=== PATIENT | female | born 1975 | race Caucasian/White ===

== ENCOUNTER → 2018-02-17 08:45 | Outpatient (CLI) | payer BC, SELFPAY ==
[2018-02-17 10:50] LABS: Alanine Aminotransferase 26 U/L (12-78); Albumin Level 3.8 gm/dL (3.4-5.0); Albumin/Globulin Ratio 1.2 (1.1-1.8); Alkaline Phosphatase 93 U/L (46-116); Anion Gap 9.8 mEq/L (5-15); Aspartate Amino Transferase 11 U/L (15-37); Bilirubin,Total 0.5 mg/dL (0.2-1.0); Blood Urea Nitrogen 10 mg/dL (7-18); Calcium 9.2 mg/dL (8.5-10.1); Carbon Dioxide 30 mmol/L (21.0-32.0); Chloride 107 mmol/L (98-107); Chol/HDL Ratio 3.9 (1-3.5); Cholesterol 235 mg/dL (140-200); Creatinine,Serum 0.58 mg/dL (0.55-1.02); Estimated Glomerular Filt Rate 114 ml/min (>60); GFR (African American) 138 ML/MIN (>60); Globulin 3.2 gm/dl (1.3-3.2); Glucose 97 mg/dL (74-106); HDL Cholesterol 61 mg/dL (29-89); LDL Cholesterol 157 mg/dL (0-130); Potassium 4.8 mmoL/L (3.5-5.1); Sodium 142 mmol/L (136-145); Thyroid Stimulating Hormone 1.39 uIU/ml (0.358-3.740); Triglycerides 84 mg/dL (30-200); VLDL Cholesterol 17 mg/dL (0-40)
== END ==
PROVIDERS: PCP Family Medicine; Visit Provider Physician Assistant
DX: Z13.29 Encounter for screening for other suspected endocrine disorder (principal); Z13.220 Encounter for screening for lipoid disorders
CPT/HCPCS: 36415; 80053; 80061; 84443

== ENCOUNTER → 2018-03-08 09:28 | Outpatient (CLI) | payer BC, SELFPAY ==
--- NOTE | 2018-03-08 09:29 | MM_ITS ---
MM Dig screening mamm BI w/CAD ORDERING PHYSICIAN : Gricelda Epps MD PATIENT AGE: 42 years GENDER: Female COMPARISON: Outside breast studies from from [facility] now available: This includes November 2014 bilateral mammogram January 2015 MR breast available for comparison [facility]. INDICATION: ITS.REASON: SCREENING 42-year-old with no new complaints. No hormones. Family history. Mother breast cancer age 69. Maternal cousin in her 50s. TECHNIQUE: Standard CC and MLO images were obtained. R2 CAD reviewed. . Additional axillary cc view both breast FINDINGS: Moderately dense breast pattern bilaterally. Heterogeneous Increased density throughout the breast decreases sensitivity of mammography.. If any palpable areas arise ultrasound be useful compliment to mammography in breast of this relative increased density. However no focal areas of significant concern are identified. RIGHT BREAST: No new findings. Follow up one year on right . No new areas of significant concern right breast . LEFT BREAST:.Visual inspection noted & CAD highlights a small less than 7 mm focal density at the deep left breast on MLO view. Strongly favor this is merely a summation shadow,, but given its current dense focalappearance on today's MLO view, & given positive family history, in patient with dense breast, with suggest a should return for spot views of this area. These should include MLO and 90 degrees spot view along, with a CC spot view at the deep central breast. IMPRESSION: ...... Outside studies from [facility] have now available in PACS for comparison Fairly Dense breast bilaterally do decrease sensitivity of mammography.. LEFT BREAST:*Small focal area of density deep left breast MLO view, strongly favor is merely a summation shadow-not of significant concern, but with recommend spot view left breast to further evaluate RIGHT BREAST.. No new findings. Follow-up in one year. BI-RADS Category: 0 Need Additional Imaging Evaluation RECOMMENDED FOLLOW-UP: IMM - IMMEDIATE FOLLOW-UP RECOMMENDED Spot MLO, 90 degree and cc views left breast, as in body of report (A letter has been sent to the patient regarding results of the study.)
== END ==
PROVIDERS: PCP Family Medicine; Visit Provider Family Medicine
DX: Z12.31 Encounter for screening mammogram for malignant neoplasm of breast (principal)
CPT/HCPCS: 77067

== ENCOUNTER → 2018-03-31 13:01 | Outpatient (CLI) | payer BC, SELFPAY ==
--- NOTE | 2018-03-31 13:11 | MM_ITS ---
MM Dig mamm DX unilat LT CAD Ordering Physician: Gricelda Epps MD Patient Age: 42 years Female COMPARISON: 03/08/2018 bilateral mammogram & November 2014 INDICATION: Further evaluation small area of density deep left breast noted on recent MLO view TECHNIQUE: . Spot CC, 90 degree, MLO views along with foraminal CC rolled views left breast FINDINGS: . Moderately dense breast tissue throughout. Slightly nodular character Mammography is of decreased sensitivity in regions of denser breast tissue. Additional views show no areas of concern. The previously small focal area of density no longer evident and seems to compress out on these views. Thus patient may resume annual scheduled. IMPRESSION: Additional views are helpful-& show no areas of significant concern.. Patient may resume annual scheduled with bilateral follow-up March 2015 Fairly Dense breast bilaterally BI-RADS Category: 2 Benign Finding(s) RECOMMENDED FOLLOW-UP: 1YR 1 YEAR FOLLOW-UP A letter has been sent to the patient regarding results of the study.)
== END ==
PROVIDERS: PCP Family Medicine; Visit Provider Family Medicine
DX: R92.8 Other abnormal and inconclusive findings on diagnostic imaging of breast (principal)
CPT/HCPCS: 77065

== ENCOUNTER → 2018-06-02 15:45 | Outpatient (CLI) | payer BC, SELFPAY ==
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
== END ==
PROVIDERS: PCP Family Medicine; Visit Provider Family Medicine
DX: S61.512A Laceration without foreign body of left wrist, initial encounter (principal)
CPT/HCPCS: 73221

== ENCOUNTER → 2019-04-20 13:38 | Outpatient (CLI) | payer BC, SELFPAY ==
--- NOTE | 2019-04-20 13:44 | MM_ITS ---
PROCEDURE: MM DIG SCREENING MAMM BI W/CAD CLINICAL INDICATION: SCREENING There is a history of breast cancer patient's mother and maternal cousin. COMPARISON: [facility] MM Dig screening mamm BI w/CAD from 03/08/2018 DXLT MM Dig mamm DX unilat LT CAD from 03/31/2018 TECHNIQUE: Standard CC and MLO images were obtained. R2 CAD reviewed. FINDINGS: There is a diffusely dense and heterogenic parenchymal pattern definitely lessening the sensitivity of mammography. The findings are bilateral symmetrical. There is no new or suspicious lesion in either breast and no suspicious microcalcifications. IMPRESSION: Prominent heterogenic breast density with no suspicious lesions seen BI-RAD Category: 1 Negative FOLLOW-UP: 1YR 1 Year Follow-up (A letter has been sent to the patient regarding results of the study.) Dictated by: Dr. Larry Aguilar MD 04/23/2019 16:[address] Larry Aguilar MD in [place] 04/23/2019 16:27
== END ==
PROVIDERS: PCP Family Medicine; Visit Provider Physician Assistant
DX: Z12.31 Encounter for screening mammogram for malignant neoplasm of breast (principal)
CPT/HCPCS: 77067

== ENCOUNTER → 2019-04-24 11:51 | Outpatient (CLI) | payer BC, SELFPAY | PROVIDERS: PCP Family Medicine; Visit Provider Physician Assistant | DX: R00.2 Palpitations (principal); R00.0 Tachycardia, unspecified; R94.31 Abnormal electrocardiogram [ECG] [EKG]; Z72.0 Tobacco use; Z82.49 Family history of ischemic heart disease and other diseases of the circulatory system | CPT/HCPCS: 93225; 93226 ==

== ENCOUNTER → 2019-05-04 07:53 | Outpatient (CLI) | payer BC, SELFPAY ==
--- NOTE | 2019-05-04 | CA_ITS ---
APPROVED REPORT Exam: Exercise Treadmill Technologist: josie ortega, Ht: 5 ft 5 in Wt: 186 lbs BSA: 1.92 m2 HR: 76 bpm BP: 117/60 mmHg Indications: Tachycardia, Palpatations Medical History Medications: Lipitor,,,,, Allergies: No known drug allergies Cardiac Risk Factors: Hyperlipidemia Stress Test Details Test: Manual Treadmill HR Resting HR: 90 bpm Max Heart Rate (APMHR): 177 bpm Max HR Achieved: 163 bpm Target HR (85% APMHR): 150 bpm % of APMHR: 92 Recovery HR: 113 bpm BP Resting BP: 117/60 mmHg Max BP: 176/70 mmHg Recovery BP: 126.0/47.0 mmHg ECG Resting ECG: NSR, Low voltage QRS Clinical Exercise duration: 09:00 min Highest Stage Achieved: Stage 3: 3.4 mph at 14% grade. Exercise capacity: 10.1 METs Stress ECG Conclusion Patient exercised for 9min on Gilson Protocol. No symptoms noted. Occ PVC and Ventricular Couplet in stage 3. Normal ST Response. Normal GXT. Echo images reported seperately. Test Summary REST . . . . . . . Sitting REST . . . . . . . Standing REST 04:13 0.0 0.0 90 . 117/ 60 . . Stage 1 01:00 10.0 1.7 97 . . . . Stage 1 02:00 10.0 1.7 108 . . . . Stage 1 03:00 10.0 1.7 115 . 160/ 70 . . Stage 2 01:00 12.0 2.5 119 . . . . Stage 2 02:00 12.0 2.5 125 . . . . Stage 2 03:00 12.0 2.5 129 . 176/ 70 . . Stage 3 01:00 14.0 3.4 146 . . . . Stage 3 02:00 14.0 3.4 154 . . . . Stage 3 03:00 14.0 3.4 160 . . . Stop exercise at 09:00 RECOVERY . . . . . . . Protocol changed to Manual Treadmill RECOVERY 01:00 0.0 0.0 113 . . . . RECOVERY 02:00 0.0 0.0 102 . . . . RECOVERY 03:00 0.0 0.0 98 . . . . RECOVERY 04:00 0.0 0.0 99 . 126/ 47 . . RECOVERY 05:00 0.0 0.0 98 . 126/ 47 . . RECOVERY 06:00 0.0 0.0 96 . 113/ 46 . . RECOVERY 06:30 0.0 0.0 103 . 113/ 46 . . Electronically signed by : Buster Nieves, 05/04/2019 16:15:05
--- NOTE | 2019-05-04 07:57 | CA_ITS ---
APPROVED REPORT EXAM: Comprehensive 2D, Doppler, and color-flow Echocardiogram Center Medical And Lab Director: Evelia Camacho, RT(R) Ht: 5 ft 6 in Wt: 187lbs BSA: 1.94 BP: 114/67 mmHg Indications: Tachycardia, palpitations, smoker Conclusion 1. The EKG portion of the exercise stress echo is negative for ischemia, patient has good exercise capacity achieved 10.1 mets of workload on treadmill, the blood pressure response to exercise was adequate, there was no exercise-induced chest discomfort. 2. Resting echocardiogram showed normal left ventricular size and function with no regional wall motion abnormality, with exercise there is no segmental wall motion abnormality to suggest underlying ischemic heart disease. 3. Normal exercise stress echo.
== END ==
PROVIDERS: PCP Family Medicine; Visit Provider Internal Medicine Cardiovascular Disease
DX: R00.0 Tachycardia, unspecified (principal); R00.2 Palpitations
CPT/HCPCS: 93017; 93350

== ENCOUNTER → 2019-05-09 14:43 | Outpatient (CLI) | payer BC, SELFPAY ==
--- NOTE | 2019-05-09 14:47 | US_ITS ---
PROCEDURE: US EXTREMITY RT LIMITED CLINICAL INDICATION: RT AXILLARY MASS COMPARISON: No exams were available for comparison FINDINGS: Images targeted to the palpable abnormalities demonstrate a solid hypoechoic nodule with increased internal color Doppler blood flow 1.3 x 0.94 centimeters, and nodule most consistent with lymph node with peripheral hypo echoic rim and internal echogenicity 1.3 x 0.56 centimeters, and hypoechoic nodule in the right axilla 1.2 x 1.3 x 0.87 centimeters No cyst or fluid collection is demonstrated. IMPRESSION: Nodules as described favored to be nonspecific lymph nodes. Dictated by: Tomasz Ram 05/09/2019 16:13 Electronically signed by Tomasz Ram in [place] 05/09/2019 16:13
== END ==
PROVIDERS: PCP Family Medicine; Visit Provider Physician Assistant
DX: R22.31 Localized swelling, mass and lump, right upper limb (principal)
CPT/HCPCS: 76882

== ENCOUNTER → 2019-07-12 10:11 | Outpatient (CLI) | payer BC, OTHER, SELFPAY ==
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
== END ==
PROVIDERS: PCP Family Medicine; Visit Provider Physician Assistant
DX: M25.512 Pain in left shoulder (principal)
CPT/HCPCS: 73221

== ENCOUNTER 2019-08-09 10:00 | Outpatient (RCR) | payer BC, OTHER, SELFPAY ==
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
== END 2019-08-09 10:05 | disposition home or self-care (01) ==
LOC: PT 10:00
PROVIDERS: Visit Provider Physician Assistant
DX: M54.2 Cervicalgia (principal)
CPT/HCPCS: 97010; 97014; 97035; 97110; 97163; G0283

== ENCOUNTER → 2020-01-09 10:42 | Outpatient (CLI) | payer BC, SELFPAY ==
--- NOTE | 2020-01-09 10:48 | US_ITS ---
PROCEDURE: US TRANSVAGINAL CLINICAL INDICATION: VAGINAL BLEEDING COMPARISON: No exams were available for comparison FINDINGS: UTERUS: 6cm x 4cmx 3cm with a combined endometrial thickness of 7.6mm LEFT OVARY: 5mcw6bel7.8cm with a volume of 4.7ml. RIGHT OVARY: 8qwt1pxm7th with a volume of 10.6ml. No cul-de-sac fluid or adnexal mass. IMPRESSION: The endometrium measures 8 mm. If the patient is considered to be postmenopausal, then this is mildly thickened. If the patient is premenopausal then, this would be within normal limits. Dictated b Braulio Vargas MD 01/09/2020 12:34 Braulio Vargas MD in [place] 01/09/2020 12:34
== END ==
PROVIDERS: PCP Family Medicine; Visit Provider Physician Assistant
DX: N93.9 Abnormal uterine and vaginal bleeding, unspecified (principal)
CPT/HCPCS: 76830

== ENCOUNTER → 2020-01-10 13:46 | Outpatient (POV) | payer BC, SELFPAY ==
--- NOTE | 2020-01-10 16:38 | XR_ITS ---
PROCEDURE: XR CHEST 2V CLINICAL HISTORY: IRIDOCYCLITIS, RECURRENT Smoker COMPARISON: No exams were available for comparison FINDINGS: The cardiomediastinal silhouette and pulmonary vascularity are within normal limits. A 6 mm ill-defined nodular opacity is present in the left lung base. The remaining lungs are clear. No acute bony abnormalities. IMPRESSION: 6 mm left lower lobe nodule. Consider CT for further evaluation. Dictated b Braulio Vargas MD 01/10/2020 16:53 Braulio Vargas MD in [place] 01/10/2020 16:53
[2020-01-10 18:20] LABS: Erythrocyte Sedimentation Rate 6 mm/hr (0-20)
[2020-01-12 14:15] LABS: Rapid Plasma Reagin Ab Titer Non Reactive (NonRea<1:1)
[2020-01-12 16:16] LABS: Treponema pallidum Ab (FTA-ABS Non Reactive (Non Reactive)
[2020-01-13 08:13] LABS: QuantiFERON-TB Gold Plus Negative (Negative)
[2020-01-17 22:52] LABS: HLA-B27 Negative (.)
== END ==
PROVIDERS: PCP Family Medicine; Referring Provider Family Medicine
DX: H20.029 Recurrent acute iridocyclitis, unspecified eye (principal); R76.0 Raised antibody titer
CPT/HCPCS: 36415; 71046; 85651; 86480; 86592; 86618; 86780; 86812

== ENCOUNTER → 2020-01-11 10:18 | Outpatient (CLI) | payer BC, SELFPAY ==
[2020-01-11 11:29] LABS: Thyroid Stimulating Hormone 0.85 uIU/mL (0.465-4.68)
[2020-01-12 11:21] LABS: FSH 28.5 mIU/mL (.); LH 36.1 mIU/mL (.)
== END ==
PROVIDERS: Visit Provider Obstetrics & Gynecology
DX: R09.89 Other specified symptoms and signs involving the circulatory and respiratory systems (principal)
CPT/HCPCS: 36415; 83001; 83002; 84443

== ENCOUNTER → 2020-01-30 13:13 | Outpatient (CLI) | payer BC, MEDICAID, SELFPAY ==
--- NOTE | 2020-01-30 13:16 | CT_ITS ---
PROCEDURE: CT CHEST W CON CLINCAL INDICATION: IRIDOCYCLITIS, NODULES ON CXR COMPARISON: CR XR CHEST 2V from 01/10/2020 TECHNIQUE: IV Contrast: 75ml Optiray 350 Axial images obtained with sagittal and coronal reformats. All CT scans at the facility use one or more dose reduction, viz: automated exposure control, ma/kV adjustment per patient size (including targeted exams where dose is matched to indication, i.e. head), or iterative reconstruction technique. FINDINGS: HEART AND MEDIASTINAL STRUCTURES: No mediastinal or hilar mass. No evidence of aortic aneurysm or dissection. No evidence of central pulmonary embolus. LUNGS AND PLEURAL SPACES: There is mild biapical pleural thickening. There is a calcified nodule in the left lower lobe laterally in the costophrenic sulcus corresponding to the radiographic abnormality. There is some associated subpleural thickening at this region. BONY STRUCTURES: No acute bony abnormalities apparent. UPPER ABDOMEN: Unremarkable. ADDITIONAL FINDINGS: There are mildly prominent bilateral axillary lymph nodes IMPRESSION: 1. Left lower lobe pulmonary nodule corresponds to a calcified granuloma. There is some mild subpleural thickening also noted at this area. 2. Nonspecific mildly prominent bilateral axillary lymph nodes Dictated by: Braulio Vargas MD 01/31/2020 12:03 Braulio Vargas MD in [place] 01/31/2020 12:03
== END ==
PROVIDERS: PCP Family Medicine; Visit Provider Family Medicine
DX: H20.9 Unspecified iridocyclitis (principal)
CPT/HCPCS: 71260; Q9967

== ENCOUNTER → 2020-02-21 13:39 | Outpatient (POV) | payer BC, SELFPAY | DX: Z00.00 Encounter for general adult medical examination without abnormal findings (principal) ==

== ENCOUNTER 2020-04-08 12:29 | Emergency (ER) | payer BC, MEDICAID, SELFPAY ==
[2020-04-08 13:00] VITALS: BP 122/72; PULSE 67; RESP 16; TEMP 36.8; O2SAT 98; BMI 30.7
--- NOTE | 2020-04-08 13:23 | HMH.EDUTC ---
[facility] [place] Disposition Clinical Impression: Otitis media Qualifiers: Otitis media type: unspecified Laterality: right Qualified Code(s): H66.91 - Otitis media, unspecified, right ear Disposition: Home, Self-Care Condition on Discharge: Good Instructions: Middle Ear Infection, Amoxicillin Additional Instructions: *Monitor Temp, Over the counter Motrin or Tylenol as directed/as needed Tylenol every 4 hours and Motrin every 6 hours (as long as your family doctor has told you that you can take it) for fever or pain. and straight to ER if unable to lower temp less than 101.0 after medication given *Warm salt water gargles may help to soothe the throat *Throat Lozenges *Warm fluids like tea with honey may help to soothe the throat and help to open up sinuses *Sleep elevated *Humidifier/Vaporizer *Flonase 2 sprays in each nostril daily but be aware that it may take 2-3 days before you notice improvement Take medication as prescribed Follow up IMMEDIATELY for new or worsening symptoms or no Noticeable improvement over the next 48-72 hours. 911 for difficulty breathing or swallowing Prescriptions: Amoxicillin [Amoxicillin 875MG Tab] 875 mg PO Q12H #20 tab Transmission Status: Pending to [id number] Fluticasone Propionate [Flonase 50mcg nasal spray 16gm] 1 - 2 spr NS DAILY #1 bottle Transmission Status: Pending to [id number] Referrals: Gricelda Epps MD [Primary Care Provider] - As needed Time of Disposition: 13:31 Medical Decision Making - Jesus Inquiry Pt receiving controlled substance: No Jesus was queried for this patient: No Vital Signs: 04/08/20 13:00 Temperature 98.2 F Temperature Source Oral Pulse Rate [Right Brachial] 67 Respiratory Rate 16 Blood Pressure [Right Arm] 122/72 Blood Pressure Mean [Right Arm] 88 Blood Pressure Source [Right Arm] Automatic Cuff Blood Pressure Position [Right Arm] Sitting 02 Sat by Pulse Oximetry 98 Oxygen Delivery Method Room Air [facility] [place] HPI - General Stated complaint: ear pain Time Seen by Provider: 04/08/20 13:23 Mode of Arrival: Ambulatory Source of Information: Patient Limitations: No Limitations Description of Symptoms (Recalled from Triage Doc. by RN): PATIENT C/O RIGHT EAR PAIN HEENT Symptoms (Recalled from RN notes): Yes Resp Symptoms (Recalled from RN notes): No Skin Symptoms (Recalled from RN notes): No MS Symptoms (Recalled from RN notes): No Functional Status (Recalled from RN notes): WNL - History of Present Illness Provider Complaint: Patient states that she has been having pain in her right ear that has continued to get worse over the last couple of days States that she started with pressure like feeling in her ear and now it is worse and feels like it is full of fluid so she come in to get it checked - Related Data Home Medications Medication Instructions Recorded Confirmed atorvastatin 10 mg tablet 10 mg PO DAILY 05/10/19 04/08/20 Adalimumab [Humira Pen] 40 mg SQ MONTHLY 04/08/20 04/08/20 Varenicline Tartrate [Chantix 1mg 1 mg PO BID 04/08/20 04/08/20 tablet] Previous Rx's Medication Instructions Recorded Amoxicillin [Amoxicillin 875MG 875 mg PO Q12H #20 tab 04/08/20 Tab] Fluticasone Propionate [Flonase 1 - 2 spr NS DAILY #1 bottle 04/08/20 50mcg nasal spray 16gm] Allergies Allergy/AdvReac Type Severity Reaction Status Date / Time No Known Allergies Allergy Verified 01/23/20 14:44 - Worker's Comp Is this a Worker's Comp case?: No [facility] History - Hepatitis A Screen Drug use history?: No High risk sexual behaviors?: No History of sexually transmitted infection?: No Currently employed?: No Childcare worker?: No Do you have indoor plumbing?: Yes Do you have electricity?: Yes Attestation statement:: This patient has been screened for Hepatitis A risk factors. I have reviewed the patient's past medical history: Yes Medical History: Reports:: Palpitations Denies:: Cancer, Diabetes [place]
[2020-04-08 13:33] VITALS: BP 122/72; PULSE 67; RESP 16; TEMP 36.8; O2SAT 98
== END 2020-04-08 13:43 | disposition home or self-care (01) ==
PROVIDERS: Emergency Provider Nurse Practitioner; PCP Family Medicine
DX: H66.91 Otitis media, unspecified, right ear (principal); F17.210 Nicotine dependence, cigarettes, uncomplicated
CPT/HCPCS: 99201

== ENCOUNTER → 2020-04-09 14:38 | Outpatient (CLI) | payer BC, MEDICAID, SELFPAY ==
[2020-04-11 20:00] LABS: Angiotensin Converting Enzyme 50 U/L (14-82); Calcium, Ionized 5.6 mg/dL (4.5-5.6)
== END ==
PROVIDERS: Visit Provider Internal Medicine Pulmonary Disease
DX: R06.00 Dyspnea, unspecified (principal)
CPT/HCPCS: 36415; 82164; 82330

== ENCOUNTER → 2020-04-22 09:30 | Outpatient (CLI) | payer BC, MEDICAID, SELFPAY ==
--- NOTE | 2020-04-22 09:35 | MM_ITS ---
PROCEDURE: MM DIG SCREENING MAMM BI W/CAD Digital Breast Tomosynthesis Included CLINICAL INDICATION: SCREENING A history of breast cancer in the patient's mother diagnosed after menopause. COMPARISON: MG [facility] MM Dig screening mamm BI w/CAD from 03/08/2018 MG DXLT MM Dig mamm DX unilat LT CAD from 03/31/2018 MG MM DIG SCREENING MAMM BI W/CAD from 04/20/2019 TECHNIQUE: Standard CC and MLO images and 3D Tomosynthesis was obtained. R2 CAD reviewed. FINDINGS: There is a markedly dense and heterogenic parenchymal bilaterally as noted previously. Sandip images are most helpful in this type of dense breast parenchyma. Sandip images show no suspicious lesions. There are no CAD markings. There are stable small nodes in both axilla. There are no suspicious microcalcifications. IMPRESSION: Stable markedly dense parenchymal pattern with no suspicious lesions seen BI-RAD Category: 1 Negative FOLLOW-UP: 1YR 1 Year Follow-up (A letter has been sent to the patient regarding results of the study.) Dictated by: Dr. Larry Aguilar MD 04/30/2020 08:28 Dr. Larry Aguilar MD in [place] 04/30/2020 08:28
--- NOTE | 2020-04-22 09:35 | XR_ITS ---
PROCEDURE: XR DEXA AXIAL SKELETON CLINICAL HISTORY: OSTEOPENIA The COMPARISON: No exams were available for comparison FINDINGS: The right hip BMD is 0.907 with a T-score of 0.5. The left hip BMD is 0.956 with a T-score of 0.1 The lumbar spine BMD is 1.238 with a T-score of 1.7. IMPRESSION: This patient is considered normal according to the World Health Organization criteria. Fracture risk is low. Based on these results a follow-up exam is recommended in 2 year. Dictated by: Braulio Vargas MD 04/22/2020 21:12 Braulio Vargas MD in [place] 04/24/2020 10:23
== END ==
PROVIDERS: PCP Family Medicine; Visit Provider Family Medicine
DX: Z12.31 Encounter for screening mammogram for malignant neoplasm of breast (principal); Z13.820 Encounter for screening for osteoporosis; M85.80 Other specified disorders of bone density and structure, unspecified site
CPT/HCPCS: 77063; 77067; 77080

== ENCOUNTER 2020-07-13 09:43 | Emergency (ER) | payer BC, OTHER, SELFPAY ==
[2020-07-13 09:45] VITALS: BP 139/68; PULSE 70; RESP 18; TEMP 36.2; O2SAT 99; BMI 32.5
--- NOTE | 2020-07-13 10:01 | XR_ITS ---
PROCEDURE: XR HAND RT MIN 3V Referring Doctor: Prudencio Hilton Patient Age:44Y CLINICAL INDICATION: INJURY Right hand pain after fall and trying to catch self. COMPARISON: No exams were available for comparison TECHNIQUE: Right hand: 3 View AP, Oblique, Lateral FINDINGS: Right hand intact with no fracture or dislocation. No lytic or blastic change. There is normal mineralization. The joint spaces are well-preserved. No significant degenerative/arthritic changes. No erosive changes evident. . IMPRESSION: No acute findings. Right hand intact. No fracture Dictated by: Jay Jay Johns MD 07/13/2020 11:10 Jay Jay Johns MD in [place] 07/13/2020 11:10
--- NOTE | 2020-07-13 10:22 | HMH.EDUTC ---
[facility] [place] Clinical Impression: Sprain of right hand Qualifiers: Encounter type: initial encounter Qualified Code(s): S63.91XA - Sprain of unspecified part of right wrist and hand, initial encounter Sprain of finger of right hand Qualifiers: Encounter type: initial encounter Finger: ring finger Sprain of finger site: unspecified site Qualified Code(s): S63.614A - Unspecified sprain of right ring finger, initial encounter Disposition: Home, Self-Care Condition on Discharge: Good Instructions: Finger Sprain Additional Instructions: Rest the extremity, apply ice for 15 minutes as tolerated three or four times per day, Elevate the extremity as tolerated while you are resting. Take ibuprofen for pain. I sent in a prescription to your pharmacy. Follow up with Dr. Colon (orthopedics). Sometimes there can be fractures that don't show up well on the first set of x-rays. So, you should follow up if you continue to have symptoms. I put in a referral but you need to call her office and schedule an appointment. Follow up with your regular doctor. GO TO THE ER FOR ANY WORSENING SYMPTOMS Prescriptions: Ibuprofen [Ibuprofen 600mg Tablet] 600 mg PO Q6HP PRN #30 tab PRN Reason: Mild Pain Transmission Status: Received by [id number] Referrals: Gricelda Epps MD [Primary Care Provider] - Lanny Colon MD [Physician] - Time of Disposition: 10:32 Medical Decision Making - Medical Records Medical records reviewed: No: I reviewed the patient's medical records. - Jesus Inquiry Pt receiving controlled substance: No Vital Signs: 07/13/20 09:45 07/13/20 10:38 Temperature 97.1 F L 97.1 F L Temperature Source Oral Pulse Rate 70 Pulse Rate [Right Brachial] 70 Respiratory Rate 18 18 Blood Pressure 139/68 Blood Pressure [Right Arm] 139/68 Blood Pressure Mean [Right Arm] 91 Blood Pressure Source [Right Arm] Automatic Cuff Blood Pressure Position [Right Arm] Sitting 02 Sat by Pulse Oximetry 99 Oxygen Delivery Method Room Air - Radiology Data #1 Image(s): Hand Image Reviewed: Yes I reviewed the patient's radiology image, Yes I have reviewed radiologist's interpretation Preliminary Findings: Normal/NAD, No Fracture Seen PROCEDURE: XR HAND RT MIN 3V Referring Doctor: Prudencio Hilton Patient Age:44Y CLINICAL INDICATION: INJURY Right hand pain after fall and trying to catch self. COMPARISON: No exams were available for comparison TECHNIQUE: Right hand: 3 View AP, Oblique, Lateral FINDINGS: Right hand intact with no fracture or dislocation. No lytic or blastic change. There is normal mineralization. The joint spaces are well-preserved. No significant degenerative/arthritic changes. No erosive changes evident. . IMPRESSION: No acute findings. Right hand intact. No fracture Dictated by: Jay Jay Johns MD 07/13/2020 11:10 Jay Jay Johns MD in [place] 07/13/2020 11:10 [facility] [place] - General Stated complaint: ao 07/10 injury R hand Time Seen by Provider: 07/13/20 10:22 Mode of Arrival: Ambulatory Source of Information: Patient Limitations: No Limitations Description of Symptoms (Recalled from Triage Doc. by RN): PATIENT REPORTS THAT SHE FELL ON WEDNESDAY AND BENT BACK HER RIGHT MIDDLE AND RING FINGERS. DECREASED ROM NOTED TO BOTH FINGERS HEENT Symptoms (Recalled from RN notes): No Resp Symptoms (Recalled from RN notes): No Skin Symptoms (Recalled from RN notes): No MS Symptoms (Recalled from RN notes): Yes Functional Status (Recalled from RN notes): WNL - History of Present Illness Provider Complaint: She states that she fell on ice 3 days ago and came down on her right hand. She has had pain and swelling of her middle and ring finger since this happened. She states that she bent those 2 fingers back when she fell. Since then she has had pain with movement of those fingers. She also states that the affected fingers feel stiff when she moves them.
[2020-07-13 10:38] VITALS: BP 139/68; PULSE 70; RESP 18; TEMP 36.2; O2SAT 99
== END 2020-07-13 10:40 | disposition home or self-care (01) ==
PROVIDERS: Emergency Provider Nurse Practitioner Family; PCP Family Medicine
DX: S63.614A Unspecified sprain of right ring finger, initial encounter (principal); S63.612A Unspecified sprain of right middle finger, initial encounter; W00.0XXA Fall on same level due to ice and snow, initial encounter; Y92.014 Private driveway to single-family (private) house as the place of occurrence of the external cause; E78.5 Hyperlipidemia, unspecified; R00.2 Palpitations; F17.210 Nicotine dependence, cigarettes, uncomplicated
CPT/HCPCS: 73130; 99202; G0463

== ENCOUNTER 2020-10-06 15:40 | Emergency (ER) | payer OTHER, SELFPAY ==
--- NOTE | 2020-10-06 16:37 | XR_ITS ---
PROCEDURE INFORMATION: Exam: XR Right Humerus Exam date and time: 10/06/2020 4:37 PM Age: 45 years old Clinical indication: Injury or trauma; Fall; Work related; Blunt trauma (contusions or hematomas); Arm, upper; Right; Additional info: Fall at work TECHNIQUE: Imaging protocol: XR Right humerus. Views: 2 or more views. COMPARISON: US EXTREMITY RT LIMITED 05/09/2019 2:49 PM FINDINGS: Bones/joints: There is no evidence of acute fracture. There is no evidence of joint malalignment or dislocation. Soft tissues: There are no soft tissue masses or fluid collections. IMPRESSION: 1. No evidence of acute fracture. 2. No evidence of acute dislocation.
[2020-10-06 16:42] VITALS: BP 124/72; PULSE 89; RESP 18; TEMP 36.8; O2SAT 97; BMI 30.9
--- NOTE | 2020-10-06 16:48 | HMH.EDUTC ---
[facility] [place] Clinical Impression: Abrasion Contusion, upper arm Qualifiers: Encounter type: initial encounter Laterality: right Qualified Code(s): S40.021A - Contusion of right upper arm, initial encounter Disposition: Home, Self-Care Condition on Discharge: Good Instructions: DI for Contusion, How To Perform RICE (Rest, Ice, Compress, Elevate), DI for Abrasion Additional Instructions: *RICE, Rest the extremity, Ice 15-20 minutes 3-4 times daily, Compress- wear the kevin wrap as discussed as much as possible to help reduce swelling and pain, Elevate the extremity when at rest *Kevin wrap is for support and help control swelling, use it except in the shower. Be sure that is not to tight but not to loose either Neosporin to abrasion may help prevent infection *Elevate when resting *Ibuprofen every 6-8 hours as needed for pain an inflammation. If need something more can take Tylenol in between doses of Ibuprofen to help Immediately follow up with your family doctor for new or worsening of symptoms, or no noticeable improvement over the next 3-5 days Referrals: Gricelda Epps MD [Primary Care Provider] - As needed Time of Disposition: 17:05 Medical Decision Making - Jesus Inquiry Pt receiving controlled substance: No Jesus was queried for this patient: No Vital Signs: 10/06/20 16:42 10/06/20 16:49 Temperature 98.2 F 98.2 F Temperature Source Oral Pulse Rate 89 Pulse Rate [Left] 89 Respiratory Rate 18 18 Blood Pressure 124/72 Blood Pressure [Right Arm] 124/72 Blood Pressure Mean [Right Arm] 89 02 Sat by Pulse Oximetry 97 Oxygen Delivery Method Room Air Orders (Tests/Meds): ED MEDICATIONS Discontinued Medications Generic Name Dose Route Start Last Admin Trade Name Freq PRN Reason Stop Dose Admin Neomycin/Polymyxin/Bacitracin 1 each 10/06/20 17:12 10/06/20 17:16 Neosporin Ointment 0.9gm Udp TP 10/06/20 17:13 1 each ONCE ONE Administration - Radiology Data #1 Image(s): Humerus Preliminary Findings: No Fracture Seen [facility] [place] - General Stated complaint: WC 10/06/20 fall, scrape on arm and elbow Time Seen by Provider: 10/06/20 16:48 Mode of Arrival: Ambulatory Source of Information: Patient Limitations: No Limitations Description of Symptoms (Recalled from Triage Doc. by RN): Right arm pain from standing position HEENT Symptoms (Recalled from RN notes): No Resp Symptoms (Recalled from RN notes): No Skin Symptoms (Recalled from RN notes): No MS Symptoms (Recalled from RN notes): Yes Functional Status (Recalled from RN notes): wnl - History of Present Illness Provider Complaint: Patient state that she was at work earlier when she slipped on a tomato and fell States that her right upper arm got caught on a rack and it kind of jerked her right upper arm State that now she has an abrasion and bruising to her right upper arm and hurts when she touches it States that he boss wanted her to come and get it checked Denies any other injury - Related Data Home Medications Medication Instructions Recorded Confirmed atorvastatin 10 mg tablet 10 mg PO DAILY 05/10/19 04/09/20 Adalimumab [Humira Pen] 40 mg SQ MONTHLY 04/08/20 04/09/20 Varenicline Tartrate [Chantix 1mg 1 mg PO BID 04/08/20 04/09/20 tablet] Previous Rx's Medication Instructions Recorded Amoxicillin [Amoxicillin 875MG 875 mg PO Q12H #20 tab 04/08/20 Tab] Fluticasone Propionate [Flonase 1 - 2 spr NS DAILY #1 bottle 04/08/20 50mcg nasal spray 16gm] Ibuprofen [Ibuprofen 600mg 600 mg PO Q6HP PRN #30 tab 07/13/20 Tablet] Allergies Allergy/AdvReac Type Severity Reaction Status Date / Time No Known Allergies Allergy Verified 04/09/20 13:27 - Worker's Comp Is this a Worker's Comp case?: No [facility] [place] History - Hepatitis A Screen Drug use history?: No High risk sexual behaviors?: No History of sexually transmitted infection?: No Currently employed?: No Childcare worker?: No D
[2020-10-06 16:49] VITALS: BP 124/72; PULSE 89; RESP 18; TEMP 36.8; O2SAT 97
== END 2020-10-06 17:16 | disposition home or self-care (01) ==
PROVIDERS: Emergency Provider Nurse Practitioner; PCP Family Medicine
DX: S40.021A Contusion of right upper arm, initial encounter (principal); W01.0XXA Fall on same level from slipping, tripping and stumbling without subsequent striking against object, initial encounter; Y92.69 Other specified industrial and construction area as the place of occurrence of the external cause; Y99.0 Civilian activity done for income or pay
CPT/HCPCS: 73060; 99202; G0463

== ENCOUNTER → 2020-10-25 09:53 | Outpatient (CLI) | payer BC, OTHER, SELFPAY ==
[2020-10-25 10:24] LABS: Basophils # 0.1 K/mm3 (0-0.2); Basophils % 0.8 % (0.1-2.0); Eosinophils # 0.1 K/mm3 (0.0-0.4); Eosinophils % 2.3 % (0.1-12.0); Hematocrit 43.7 % (37.0-47.0); Hemoglobin 14.4 g/dL (12.2-16.2); Lymphocytes # 2.5 K/mm3 (0.7-4.5); Mean Corpuscular HGB Conc 32.9 g/dL (31.8-35.4); Mean Corpuscular Hemoglobin 29.8 pg (27.0-31.2); Mean Corpuscular Volume 90.6 fl (81-99); Mean Platelet Volume 8.1 fl (7.4-10.4); Monocytes # 0.5 K/mm3 (0.1-1.0); Monocytes % 7.5 % (1.7-9.3); Neutrophils # 3.1 K/mm3 (1.8-7.8); Neutrophils % 49.4 % (37.0-80.0); Platelet Count 209 K/mm3 (142-424); Red Blood Count 4.82 M/mm3 (4.20-5.40); Red Cell Distribution Width 12.7 % (11.5-17.5); White Blood Count 6.2 K/mm3 (4.8-10.8)
[2020-10-25 11:00] LABS: Alanine Aminotransferase 18 U/L (12-78); Albumin Level 4.8 g/dl (3.5-5.0); Albumin/Globulin Ratio 1.7 (1.1-1.8); Alkaline Phosphatase 73 U/L (38-126); Anion Gap 11.6 mEq/L (5-15); Aspartate Amino Transferase 22 U/L (14-36); Bilirubin,Total 0.6 mg/dl (0.2-1.3); Blood Urea Nitrogen 19 mg/dl (7-17); Calcium 9.7 mg/dl (8.4-10.2); Carbon Dioxide 28 mmol/L (22.0-30.0); Chloride 104 mmol/L (98-107); Estimated Glomerular Filt Rate 90 ml/min (>60); GFR (African American) 109 ML/MIN (>60); Globulin 2.8 g/dL (1.3-3.2); Glucose 82 mg/dl (74-100); Potassium 4.6 mmoL/L (3.5-5.1); Sodium 139 mmol/L (136-145); Total Protein,Serum 7.6 g/dl (6.3-8.2)
[2020-10-25 11:07] LABS: C-Reactive Protein 1.7 mg/L (0-4)
[2020-10-25 16:18] LABS: Erythrocyte Sedimentation Rate 24 mm/hr (0-20)
== END ==
PROVIDERS: Visit Provider Internal Medicine
DX: D89.9 Disorder involving the immune mechanism, unspecified (principal); H20.9 Unspecified iridocyclitis; M05.9 Rheumatoid arthritis with rheumatoid factor, unspecified
CPT/HCPCS: 36415; 80053; 85025; 85651; 86140

== ENCOUNTER → 2021-05-07 13:37 | Outpatient (CLI) | payer BC, SELFPAY | PROVIDERS: PCP Family Medicine; Visit Provider Physician Assistant | DX: S99.922A Unspecified injury of left foot, initial encounter (principal) ==

== ENCOUNTER → 2021-05-08 15:42 | Outpatient (CLI) | payer BC, SELFPAY ==
[2021-05-08 16:20] LABS: Basophils # 0.1 K/mm3 (0-0.2); Basophils % 1.2 % (0.1-2.0); Eosinophils # 0.1 K/mm3 (0.0-0.4); Hematocrit 40.9 % (37.0-47.0); Hemoglobin 13.8 g/dL (12.2-16.2); Lymphocytes # 2.6 K/mm3 (0.7-4.5); Mean Corpuscular HGB Conc 33.8 g/dL (31.8-35.4); Mean Corpuscular Hemoglobin 30.6 pg (27.0-31.2); Mean Corpuscular Volume 90.6 fl (81-99); Mean Platelet Volume 8.2 fl (7.4-10.4); Monocytes # 0.4 K/mm3 (0.1-1.0); Monocytes % 6.4 % (1.7-9.3); Neutrophils # 2.9 K/mm3 (1.8-7.8); Neutrophils % 47.3 % (37.0-80.0); Platelet Count 233 K/mm3 (142-424); Red Blood Count 4.51 M/mm3 (4.20-5.40); Red Cell Distribution Width 12.7 % (11.5-17.5); White Blood Count 6.1 K/mm3 (4.8-10.8)
[2021-05-08 16:47] LABS: Erythrocyte Sedimentation Rate 6 mm/hr (0-20)
[2021-05-08 16:53] LABS: Alanine Aminotransferase 27 U/L (12-78); Albumin Level 4.6 g/dl (3.5-5.0); Albumin/Globulin Ratio 1.6 (1.1-1.8); Alkaline Phosphatase 73 U/L (38-126); Anion Gap 6.8 mEq/L (5-15); Aspartate Amino Transferase 32 U/L (14-36); Bilirubin,Total 0.6 mg/dl (0.2-1.3); Blood Urea Nitrogen 14 mg/dl (7-17); Calcium 9.7 mg/dl (8.4-10.2); Carbon Dioxide 29 mmol/L (22.0-30.0); Chloride 103 mmol/L (98-107); Estimated Glomerular Filt Rate 108 ml/min (>60); GFR (African American) 131 ML/MIN (>60); Globulin 2.8 g/dL (1.3-3.2); Glucose 85 mg/dl (74-100); Potassium 3.8 mmoL/L (3.5-5.1); Sodium 135 mmol/L (136-145); Total Protein,Serum 7.4 g/dl (6.3-8.2)
[2021-05-08 17:00] LABS: C-Reactive Protein 1.6 mg/L (0-4)
[2021-05-10 08:23] LABS: Hep A Ab, IgM Negative (Negative); Hepatitis B Core Antibody IgM Negative (Negative); Hepatitis B Surface Antigen Negative (Negative); Hepatitis C Antibody <0.1 s/co ratio (0.0-0.9)
[2021-05-12 16:11] LABS: QuantiFERON-TB Gold Plus Negative (Negative)
== END ==
PROVIDERS: Visit Provider Nurse Practitioner Family
DX: M05.9 Rheumatoid arthritis with rheumatoid factor, unspecified (principal); D89.9 Disorder involving the immune mechanism, unspecified; R53.83 Other fatigue
CPT/HCPCS: 36415; 80053; 80074; 85025; 85651; 86140; 86480

== ENCOUNTER → 2021-10-31 13:53 | Outpatient (CLI) | payer BC, SELFPAY ==
[2021-10-31 14:33] LABS: Basophils % 0.7 % (0.1-2.0); Eosinophils # 0.2 K/mm3 (0.0-0.4); Eosinophils % 2.7 % (0.1-12.0); Hematocrit 42.9 % (37.0-47.0); Hemoglobin 14.1 g/dL (12.2-16.2); Lymphocytes # 2.1 K/mm3 (0.7-4.5); Lymphocytes % 34.3 % (10-50); Mean Corpuscular HGB Conc 32.9 g/dL (31.8-35.4); Mean Corpuscular Hemoglobin 30.9 pg (27.0-31.2); Mean Corpuscular Volume 93.7 fl (81-99); Mean Platelet Volume 8.7 fl (7.4-10.4); Monocytes # 0.4 K/mm3 (0.1-1.0); Monocytes % 5.7 % (1.7-9.3); Neutrophils # 3.5 K/mm3 (1.8-7.8); Neutrophils % 56.6 % (37.0-80.0); Platelet Count 227 K/mm3 (142-424); Red Blood Count 4.58 M/mm3 (4.20-5.40); Red Cell Distribution Width 12.8 % (11.5-17.5); White Blood Count 6.2 K/mm3 (4.8-10.8)
[2021-10-31 15:12] LABS: Erythrocyte Sedimentation Rate 10 mm/hr (0-20)
[2021-10-31 15:14] LABS: Alanine Aminotransferase 26 U/L (12-78); Albumin Level 4.1 g/dl (3.5-5.0); Albumin/Globulin Ratio 1.5 (1.1-1.8); Alkaline Phosphatase 70 U/L (38-126); Anion Gap 10.1 mEq/L (5-15); Aspartate Amino Transferase 25 U/L (14-36); Bilirubin,Total 0.2 mg/dl (0.2-1.3); Blood Urea Nitrogen 16 mg/dl (7-17); Calcium 9.3 mg/dl (8.4-10.2); Carbon Dioxide 29 mmol/L (22.0-30.0); Chloride 103 mmol/L (98-107); Estimated Glomerular Filt Rate 90 ml/min (>60); GFR (African American) 109 ML/MIN (>60); Globulin 2.7 g/dL (1.3-3.2); Glucose 99 mg/dl (74-100); Potassium 4.1 mmoL/L (3.5-5.1); Sodium 138 mmol/L (136-145); Total Protein,Serum 6.8 g/dl (6.3-8.2)
[2021-10-31 15:20] LABS: C-Reactive Protein 1.2 mg/L (0-4)
== END ==
PROVIDERS: Internal Medicine; PCP Physician Assistant; Visit Provider Physician Assistant
DX: D89.9 Disorder involving the immune mechanism, unspecified (principal); H20.9 Unspecified iridocyclitis; M05.9 Rheumatoid arthritis with rheumatoid factor, unspecified
CPT/HCPCS: 36415; 80053; 85025; 85651; 86140

== ENCOUNTER 2021-11-11 11:50 | Emergency (ER) | payer BC, SELFPAY ==
[2021-11-11 11:51] VITALS: BP 166/92; PULSE 87; RESP 16; TEMP 37; O2SAT 97; BMI 32.4
--- NOTE | 2021-11-11 12:01 | CT_ITS ---
FINAL REPORT TECHNIQUE: Axial CT images of the face were obtained without contrast. Coronal reformatted images were also obtained. This study was performed with techniques to keep radiation doses as low as reasonably achievable, (ALARA). Individualized dose reduction techniques using automated exposure control or adjustment of mA and/or kV according to the patient''s size were employed. CLINICAL HISTORY: trauma/pain left orbit, SWELLING AND BRUISING, FELL ON POOL STEPS FINDINGS: There is no evidence of fracture.The orbits are intact.The globes are intact.No sinus fluid levels are identified. There is a left periorbital hematoma. IMPRESSION: No fracture or acute bony abnormality identified. Reviewed, Interpreted and Dictated by Anthony Paredes III, MD Transcribed by Yves Rodriguez Authenticated and [facility]
--- NOTE | 2021-11-11 12:02 | HMH.EDFALL ---
ED Disposition Clinical Impression: Facial contusion Qualifiers: Encounter type: initial encounter Qualified Code(s): S00.83XA - Contusion of other part of head, initial encounter Conjunctivitis Qualifiers: Conjunctivitis type: unspecified Laterality: left Qualified Code(s): H10.9 - Unspecified conjunctivitis Disposition: Home, Self-Care Condition on Discharge: Good Additional Instructions: follow up optometry Prescriptions: Erythromycin Base [Erythromycin 3.5gm opth oinment] 0.5 inch OP Q8 7 Days #3.5 gm Transmission Status: Pending to [id number] Referrals: Gricelda Epps MD [Primary Care Provider] - - Critical Care Critical Care Time: No Attestation: On 11/11/21, the high probability of a clinically significant, sudden or life threatening deterioration of the following system(s) required my full and direct attention, intervention and personal management. The time I documented below is in addition to time spent performing reported procedures but includes the following listed in this critical care notation. Medical Decision Making - Medical Records Medical records reviewed: Yes: I reviewed the patient's medical records. - Jesus Inquiry Pt receiving controlled substance: No Vital Signs: 11/11/21 11:51 Temperature 98.6 F Temperature Source Oral Pulse Rate [Left Radial] 87 Respiratory Rate 16 Blood Pressure [Right Arm] 166/92 H Blood Pressure Mean [Right Arm] 116 Blood Pressure Source [Right Arm] Automatic Cuff Blood Pressure Position [Right Arm] Sitting 02 Sat by Pulse Oximetry 97 Oxygen Delivery Method Room Air Fall HPI - General Stated Complaint: AO 11/11 facial injury Time Seen by Provider: 11/11/21 12:02 Mode of Arrival: Ambulatory Limitations: No Limitations Description of Symptoms (Recalled from ER Triage Doc. by RN): c/o left eye bruising, WHITLOCK and scratch on left outter leg, pt states that she fell on her pool later last night causing injuries. Denies any other injuries at this time - History of Present Illness HPI Narrative: fall from pool ladder, struck face on ground, c/o left orbit pain, blurry viz Onset (ago): day(s) Loss of consciousness: none Context: tripped/slipped Location of injury: face Severity: moderate Associated symptoms (after fall): denies - Related Data Home Medications Medication Instructions Recorded Confirmed atorvastatin 10 mg tablet 10 mg PO DAILY 05/10/19 04/09/20 Adalimumab [Humira Pen] 40 mg SQ MONTHLY 04/08/20 04/09/20 Varenicline Tartrate [Chantix 1mg 1 mg PO BID 04/08/20 04/09/20 tablet] Previous Rx's Medication Instructions Recorded Amoxicillin [Amoxicillin 875MG 875 mg PO Q12H #20 tab 04/08/20 Tab] Fluticasone Propionate [Flonase 1 - 2 spr NS DAILY #1 bottle 04/08/20 50mcg nasal spray 16gm] Ibuprofen [Ibuprofen 600mg 600 mg PO Q6HP PRN #30 tab 07/13/20 Tablet] Erythromycin Base [Erythromycin 0.5 inch OP Q8 7 Days #3.5 gm 11/11/21 3.5gm opth oinment] Allergies Allergy/AdvReac Type Severity Reaction Status Date / Time No Known Allergies Allergy Verified 04/09/20 13:27 [facility] History - Hepatitis A Screen Attestation statement:: This patient has been screened for Hepatitis A risk factors. Medical History: Reports:: Palpitations Denies:: Cancer, Diabetes Mellitus Type 1, Diabetes Mellitus Type 2, Hypertension, Internal Pacemaker, MRSA, Seizures Other Medical History: Denies: Blood Transfusion Reaction Laterality Cases: Right: Arthroscopy Knee Other Surgeries: Yes: No Previous Surgery, Other. No: Pacemaker Amputation: No Fractures: No Comment: I & D rt axilla, excision of spider bite rt thigh - Social History Smoking Status: Never smoker Tobacco Type: cigarettes Alcohol Intake: current Alcohol Intake Frequency:: a few times a week Substance Use Type: denies use Occupational Status: other Housing: house Household Members: family Family Hx:: Hypertension, Cancer, Stroke Comment: Fat
[2021-11-11 13:51] VITALS: BP 153/90; PULSE 65; RESP 19; TEMP 37; O2SAT 95
== END 2021-11-11 13:52 | disposition home or self-care (01) ==
PROVIDERS: Emergency Provider Emergency Medicine; PCP Family Medicine
DX: S00.202A Unspecified superficial injury of left eyelid and periocular area, initial encounter (principal); H10.9 Unspecified conjunctivitis; H53.8 Other visual disturbances; R00.0 Tachycardia, unspecified; R51.9 Headache, unspecified; I45.19 Other right bundle-branch block; F17.200 Nicotine dependence, unspecified, uncomplicated; Z79.1 Long term (current) use of non-steroidal anti-inflammatories (NSAID); Z79.51 Long term (current) use of inhaled steroids; Z82.49 Family history of ischemic heart disease and other diseases of the circulatory system; Z80.9 Family history of malignant neoplasm, unspecified; W22.8XXA Striking against or struck by other objects, initial encounter
CPT/HCPCS: 70486; 99285

== ENCOUNTER → 2022-03-03 15:31 | Outpatient (CLI) | payer BC, SELFPAY ==
--- NOTE | 2022-03-03 15:35 | MM_ITS ---
PROCEDURE INFORMATION: Exam: MG Bilateral Screening 3D Mammography Exam date and time: 03/03/2022 3:34 PM Age: 46 years old Clinical indication: Screening examination TECHNIQUE: Imaging protocol: Bilateral Screening tomosynthesis and 2D mammography including computer-aided detection (CAD) when performed. COMPARISON: 1. MG MM DIG SCREENING MAMM BI W/CAD 04/22/2020 9:34 AM 2. MG MM DIG SCREENING MAMM BI W/CAD 04/20/2019 1:50 PM FINDINGS: MAMMOGRAPHY: Breast composition: The breasts are extremely dense, which lowers the sensitivity of mammography. Mass: None. Architectural distortion: None. Calcifications: No suspicious calcifications. Asymmetric density: None. Skin thickening: None. Axillary adenopathy: None. IMPRESSION: No mammographic evidence of malignancy. Annual screening is recommended unless otherwise clinically indicated. ASSESSMENT: BI-RADS Category 1: Negative
== END ==
PROVIDERS: PCP Physician Assistant; Visit Provider Physician Assistant
DX: Z12.31 Encounter for screening mammogram for malignant neoplasm of breast (principal)
CPT/HCPCS: 77063; 77067

== ENCOUNTER → 2023-03-25 16:04 | Outpatient (CLI) | payer BC, SELFPAY ==
[2023-03-25 17:17] LABS: Basophils # 0.1 K/mm3 (0-0.2); Basophils % 0.7 % (0.1-2.0); Eosinophils # 0.3 K/mm3 (0.0-0.4); Eosinophils % 3.9 % (0.1-12.0); Hematocrit 40.8 % (37.0-47.0); Hemoglobin 13.8 g/dL (12.2-16.2); Lymphocytes # 2.8 K/mm3 (0.7-4.5); Lymphocytes % 33.1 % (10-50); Mean Corpuscular HGB Conc 33.9 g/dL (31.8-35.4); Mean Corpuscular Hemoglobin 32.4 pg (27.0-31.2); Mean Corpuscular Volume 95.4 fl (81-99); Mean Platelet Volume 9.2 fl (7.4-10.4); Monocytes # 0.5 K/mm3 (0.1-1.0); Monocytes % 5.8 % (1.7-9.3); Neutrophils # 4.8 K/mm3 (1.8-7.8); Neutrophils % 56.5 % (37.0-80.0); Platelet Count 209 K/mm3 (142-424); Red Blood Count 4.28 M/mm3 (4.20-5.40); White Blood Count 8.4 K/mm3 (4.8-10.8)
[2023-03-25 17:35] LABS: Alanine Aminotransferase 23 U/L (12-78); Albumin Level 4.2 g/dl (3.5-5.0); Albumin/Globulin Ratio 1.6 (1.1-1.8); Alkaline Phosphatase 55 U/L (38-126); Anion Gap 13.3 mEq/L (5-15); Aspartate Amino Transferase 30 U/L (14-36); Bilirubin,Total 0.3 mg/dl (0.2-1.3); Blood Urea Nitrogen 14 mg/dl (7-17); Calcium 9.3 mg/dl (8.4-10.2); Carbon Dioxide 23 mmol/L (22.0-30.0); Chloride 108 mmol/L (98-107); Estimated Glomerular Filt Rate 77 ml/min (>60); GFR (African American) 93 ML/MIN (>60); Globulin 2.7 g/dL (1.3-3.2); Glucose 94 mg/dl (74-100); Potassium 4.3 mmoL/L (3.5-5.1); Sodium 140 mmol/L (136-145); Total Protein,Serum 6.9 g/dl (6.3-8.2)
[2023-03-25 17:40] LABS: C-Reactive Protein 2.3 mg/L (0-4)
[2023-03-25 18:50] LABS: Erythrocyte Sedimentation Rate 6 mm/hr (0-20)
[2023-03-27 06:12] LABS: HBsAg Screen Negative (Negative); HCV Ab Non Reactive (Non Reactive); Hep A Ab, IGM Negative (Negative); Hep B Core Ab, IgM Negative (Negative)
[2023-03-30 15:34] LABS: QuantiFERON-TB Gold Plus Negative (Negative)
== END ==
PROVIDERS: PCP Family Medicine; Visit Provider Internal Medicine
DX: D89.9 Disorder involving the immune mechanism, unspecified (principal); H20.9 Unspecified iridocyclitis; M05.9 Rheumatoid arthritis with rheumatoid factor, unspecified; R53.83 Other fatigue
CPT/HCPCS: 36415; 80053; 80074; 85025; 85651; 86140; 86480

== ENCOUNTER 2023-03-26 09:14 | Observation (INO) | payer BC, SELFPAY ==
[2023-03-26] VITALS (27 sets, daily range): BP systolic 93–145; BP diastolic 47–91; PULSE 60–105; RESP 16–21; TEMP 36.4–36.7; O2SAT 95–100; BMI 29.0
--- NOTE | 2023-03-26 | IR_ITS ---
APPROVED REPORT Patient Location: Emergent Bulk Sealer: RHEA Leung RT (R) PROCEDURES Left heart catheterization Left ventriculogram Selective coronary angiogram INDICATION Acute non-ST elevation myocardial infarction Informed consent was obtained prior to the procedure. COMPLICATIONS None Estimated Blood Loss: Less than 10 mls TECHNIQUE One percent lidocaine used to anesthetize the right anterior aspect of the wrist. The right radial artery was accessed via the Seldinger technique. A 6 [place] sheath was placed in the right radial artery. 2.5 mg of Verapamil, 800 mcg of nitroglycerin, 1mg Lidocaine and 5000 U Heparin were given through the arterial sheath. The papa catheter was also used to perform left heart catheterization, left ventriculogram and selective coronary angiogram. At the end of the procedure the sheath was removed good hemostasis was achieved using Traclet band, patient was transferred to the postop holding area in stable condition. ANGIOGRAPHIC RESULTS The left main artery Normal The left anterior descending artery Normal The circumflex artery Normal The right coronary artery Dominant normal The RHODES ventriculogram reveals Normal 65% The left ventricular end-diastolic pressure 15 mmHg IMPRESSION Normal coronary arteries Normal ejection fraction Borderline LVEDP PLAN 1. Recommend loop recorder. Patient clearly is experiencing a tachyarrhythmia which is producing a troponinemia from a type II myocardial infarction 2. Recommend bisoprolol 5 mg daily prior to discharge home 3. Recommend loop recorder 4. Consider cardiac MRI due to nonischemic troponinemia Electronically signed by : Darrell Quintero MD 03/26/2023 16:46:57
--- NOTE | 2023-03-26 09:19 | ECG_ITS ---
APPROVED REPORT Exam: Resting ECG HR:106 bpm ECG Measurements Heart Rate 106 AXES SC 128 P 76 QRSd 101 QRS 94 QT 336 T 69 QTc 398 Conclusion SINUS TACHYCARDIA BORDERLINE RIGHT AXIS DEVIATION [QRS AXIS > 90] INCOMPLETE RIGHT BUNDLE BRANCH BLOCK [90+ ms QRS DURATION, TERMINAL R IN V1/V2, 40+ ms S IN I/aVL/V4/V5/V6] ABNORMAL RHYTHM ECG UNCONFIRMED REPORT Electronically signed by : Coy Diaz MD 03/26/2023 17:04:31
--- NOTE | 2023-03-26 09:19 | XR_ITS ---
FINAL REPORT CLINICAL HISTORY: cp/tachy COMPARISON: 01/10/2020 FINDINGS: Two views of the chest were obtained. The heart size and pulmonary vascularity are within normal limits. The mediastinum is normal. No acute pulmonary abnormality is identified. There is no pneumothorax. The bony thorax is intact. IMPRESSION: No active cardiopulmonary disease. Reviewed, Interpreted and Dictated by Anthony Paredes III, MD Transcribed by Vane Tafoya Authenticated and [facility]
--- NOTE | 2023-03-26 09:21 | HMH.EDGENADL ---
Discharge Plan Disposition Patient Disposition: Admitted Chief Complaint: Chest Pain Prescriptions Prescriptions: No Action atorvastatin [Lipitor] 10 mg tablet 10 mg PO DAILY temazepam 15 mg capsule 15 mg PO HS PRN Patient Comments: TAKE 1 CAPSULE BY MOUTH ONCE DAILY NEEDED AT BEDTIME varenicline 1 MG tablet 1 mg PO BID fluticasone propionate 120 SPR/BOT bottle 1 - 2 spr intranasal DAILY Qty: 1 0RF Rx Instructions: 1-2 sprays in each nostril daily adalimumab 40 mg/0.8 mL pen injector kit 40 mg SQ [id number] ibuprofen 600 MG tablet 600 mg PO Q6HP PRN (Reason: Mild Pain) Qty: 30 0RF Clinical Impressions Clinical Impression: Non-ST elevation NC (NSTEMI) Discharge ED Provider: Salvador Oleary General Adult HPI General Chief complaint: Chest Pain Stated complaint: CHEST PAIN, NUMBNESS IN ARMS AND LEGS, SOA Time Seen by Provider: 03/26/23 09:21 History of Present Illness HPI narrative: Patient is a 47-year-old male with past medical history of anxiety, previous documented tachycardia of undetermined etiology who presents to the emergency department for evaluation of racing heart. History is obtained by patient at bedside. Onset was acute, occurring earlier this morning while patient was at work at [employer]. Patient states that normally with her anxiety that it takes 10 to 15 minutes for it to resolve however due to persistent symptoms she presents here for continued evaluation. There is vague substernal chest pain that does not radiate. No other acute complaints at this time. Related Data Home Medications Medication Instructions Recorded Confirmed atorvastatin 10 mg tablet (Lipitor) 10 mg PO DAILY Cholesterol 05/10/19 03/04/22 varenicline 1 mg tablet 1 mg PO BID SMOKING CESSATION 04/08/20 03/04/22 adalimumab 40 mg/0.8 mL 40 mg SQ [id number] Rheumatoid 03/04/22 03/04/22 subcutaneous pen kit arthritis temazepam 15 mg capsule 15 mg PO HS PRN 03/04/22 03/04/22 Previous Rx's Medication Instructions Recorded fluticasone propionate 50 1 - 2 spr intranasal DAILY ##1 04/08/20 mcg/actuation nasal spray,suspension ibuprofen 600 mg tablet 600 mg PO Q6HP PRN Mild Pain #30 07/13/20 tabs Allergies Allergy/AdvReac Type Severity Reaction Status Date / Time No Known Allergies Allergy Verified 03/04/22 10:40 [facility] Disclaimer: The information contained in this section may have been updated after the patient was seen, as this information can be updated by other users. Medical History Family history of atherosclerosis Palpitations Right axis deviation Tachycardia Tobacco use Social History (Updated 03/04/22 @ 10:48 by Venice Rivera) Smoking Status: Current every day smoker tobacco type: cigarettes second hand exposure: No alcohol intake: current substance use type: denies use current occupational status: other Travel in the last 8 weeks: None household members: family housing: house current occupational exposures/hazards: No caffeine: No ROS Obtained: Yes Systems reviewed as appropriate & no additional complaints except as documented Physical Exam General General appearance: alert and in no apparent distress Head Head exam: atraumatic and normocephalic Eye Eye exam: Present PERRL and EOMI ENT ENT exam: Present mucous membranes moist Neck Neck exam: Present normal inspection Chest Chest inspection: Present normal inspection and symmetric chest wall rise Respiratory Respiratory exam: Present normal lung sounds bilaterally; Absent respiratory distress Cardiovascular Cardiovascular exam: Present normal rhythm, tachycardia and other (No pitting edema lower extremities) Abdominal Exam Abdominal exam: Present soft; Absent tenderness Extremities Exam Extremities exam: Present normal inspection Neurological Exam Neurological exam: Present alert Psychiatric Psychiatric exam: Present normal affect Skin Ski
--- NOTE | 2023-03-26 09:27 | PC.NURSE ---
PT TO XR
--- NOTE | 2023-03-26 09:33 | PC.NURSE ---
PT RETURNED FROM XR, SPOUSE AT BEDSIDE
[2023-03-26 09:39] LABS: Basophils % 0.4 % (0.1-2.0); Eosinophils # 0.2 K/mm3 (0.0-0.4); Eosinophils % 2.1 % (0.1-12.0); Hematocrit 43.9 % (37.0-47.0); Hemoglobin 14.6 g/dL (12.2-16.2); Lymphocytes # 2.2 K/mm3 (0.7-4.5); Lymphocytes % 27.2 % (10-50); Mean Corpuscular HGB Conc 33.1 g/dL (31.8-35.4); Mean Corpuscular Hemoglobin 31.8 pg (27.0-31.2); Mean Platelet Volume 8.5 fl (7.4-10.4); Monocytes # 0.4 K/mm3 (0.1-1.0); Monocytes % 4.4 % (1.7-9.3); Neutrophils # 5.2 K/mm3 (1.8-7.8); Platelet Count 203 K/mm3 (142-424); Red Blood Count 4.58 M/mm3 (4.20-5.40); Red Cell Distribution Width 13.1 % (11.5-17.5); White Blood Count 7.9 K/mm3 (4.8-10.8)
[2023-03-26 09:46] LABS: Chloride 108 mmol/L (98-107); Sodium 141 mmol/L (136-145)
[2023-03-26 09:47] LABS: Potassium 3.7 mmoL/L (3.5-5.1)
[2023-03-26 09:49] LABS: Alanine Aminotransferase 29 U/L (12-78); Albumin Level 4.5 g/dl (3.5-5.0); Albumin/Globulin Ratio 1.5 (1.1-1.8); Alkaline Phosphatase 66 U/L (38-126); Anion Gap 9.7 mEq/L (5-15); Aspartate Amino Transferase 33 U/L (14-36); Bilirubin,Total 0.4 mg/dl (0.2-1.3); Blood Urea Nitrogen 12 mg/dl (7-17); Calcium 9.3 mg/dl (8.4-10.2); Carbon Dioxide 27 mmol/L (22.0-30.0); Creatinine Clearance Estimated 128 mL/min (50-200); Estimated Glomerular Filt Rate 90 ml/min (>60); GFR (African American) 109 ML/MIN (>60); Glucose 81 mg/dl (74-100); Total Protein,Serum 7.5 g/dl (6.3-8.2)
[2023-03-26 09:55] LABS: D-Dimer 0.57 ug/mL (0.0-0.5)
[2023-03-26 10:02] LABS: Troponin I 0.02 ng/ml (0.00-0.034)
--- NOTE | 2023-03-26 10:20 | PC.NURSE ---
PT ASSISTED TO AND FROM BR, NO NEEDS AT THIS TIME. CALL LIGHT WITHIN REACH.
--- NOTE | 2023-03-26 11:20 | ECG_ITS ---
APPROVED REPORT Exam: Resting ECG HR:70 bpm ECG Measurements Heart Rate 70 AXES AL 147 P 72 QRSd 94 QRS 103 QT 388 T 70 QTc 408 Conclusion SINUS RHYTHM INDETERMINATE AXIS INCOMPLETE RIGHT BUNDLE BRANCH BLOCK [90+ ms QRS DURATION, TERMINAL R IN V1/V2, 40+ ms S IN I/aVL/V4/V5/V6] ABNORMAL ECG UNCONFIRMED REPORT Electronically signed by : Coy Diaz MD 03/26/2023 17:03:56
--- NOTE | 2023-03-26 12:30 | PC.NURSE ---
ROUNDED ON PT, UPDATED AT THIS TIME. NO NEEDS VOICED. CALL LIGHT WITHIN REACH
[2023-03-26 13:17] LABS: Troponin I 0.44 ng/ml (0.00-0.034)
--- NOTE | 2023-03-26 13:26 | PC.NURSE ---
CARDIOLOGY NOTIFIED OF CONSULT
--- NOTE | 2023-03-26 13:29 | PC.NURSE ---
CALL BACK FROM [facility] FROM CARDIOLOGY, [facility] IS OUT OF OFFICE, WILL NEED TO NOTIFY DR HOYT FOR CONSULT SPOKE WITH DESTINEY IN [facility] TO NOTIFY DR HOYT OF CONSULT
--- NOTE | 2023-03-26 13:31 | CT_ITS ---
FINAL REPORT CLINICAL HISTORY: CHEST PAIN COMPARISON: 02/29/2020 FINDINGS: Thin section axial CT images of the chest were obtained with contrast. 3D reformatted images were also obtained. This study was performed with techniques to keep radiation doses as low as reasonably achievable (ALARA). Individualized dose reduction techniques using automated exposure control or adjustment of mA and/or kV according to the patient''s size were employed. There is no evidence of pulmonary embolism. There is no evidence of thoracic aortic aneurysm or dissection. There is no evidence of mediastinal or hilar mass or adenopathy. There is no evidence of pulmonary mass or nodule. No localized inflammatory process is seen within the lungs. Limited images of the upper abdomen are unremarkable. IMPRESSION: No evidence of pulmonary embolism. No mass or localized inflammatory process. Reviewed, Interpreted and Dictated by Anthony Paredes III, MD Transcribed by Vane Tafoya Authenticated and [facility]
--- NOTE | 2023-03-26 13:32 | ECG_ITS ---
APPROVED REPORT Exam: Resting ECG HR:69 bpm ECG Measurements Heart Rate 69 AXES WV 146 P 70 QRSd 100 QRS 84 QT 394 T 72 QTc 413 Conclusion SINUS RHYTHM LOW QRS VOLTAGE IN PRECORDIAL LEADS [QRS DEFLECTION < 1.0 mV IN CHEST LEADS] BORDERLINE ECG UNCONFIRMED REPORT Electronically signed by : Coy Diaz MD 03/26/2023 17:03:21
--- NOTE | 2023-03-26 15:38 | PC.NURSE ---
DR MUÑOZ ADMITTED PT FOR DR PETERS
--- NOTE | 2023-03-26 15:39 | PC.NURSE ---
CARE MANAGEMENT NOTIFIED OF ADMISSION
[2023-03-26 16:28] LABS: HCG Qualitative, Serum Negative (Negative)
--- NOTE | 2023-03-26 17:15 | PC.NURSE ---
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
--- NOTE | 2023-03-26 17:41 | EXP.ACUTE.PN ---
Subjective *Date: 03/26/23 *Time: 17:41 Interval history: Pt came to ER today with palpitations and tachycardia, was taken to circus laborer for left heart cath, no stents needed, see report for cardiology recs. Medical Exam Vital signs and Labs for Last 24 Hours: Vital Signs Temp Pulse Pulse Resp BP BP Pulse Ox 03/26/23 17:06 82 20 130/78 95 03/26/23 16:55 70 20 124/73 97 03/26/23 16:52 77 76 20 143/84 H 95 03/26/23 15:30 78 18 145/88 H 97 03/26/23 15:00 68 18 115/66 98 03/26/23 14:30 76 18 120/72 96 03/26/23 13:30 74 18 129/82 98 03/26/23 13:00 72 20 110/73 03/26/23 12:30 70 18 107/69 L 98 03/26/23 12:00 71 18 114/60 97 03/26/23 11:30 71 16 115/69 97 03/26/23 11:00 70 18 116/74 97 03/26/23 10:30 71 18 104/73 L 98 03/26/23 16:17 98.0 F 69 18 143/79 H 03/26/23 10:22 83 16 126/80 96 03/26/23 09:17 97.6 F 105 H 21 124/84 100 O2 Del Method 03/26/23 17:06 Room Air 03/26/23 16:55 Room Air 03/26/23 16:52 Room Air 03/26/23 15:30 03/26/23 15:00 03/26/23 14:30 03/26/23 13:30 03/26/23 13:00 03/26/23 12:30 03/26/23 12:00 03/26/23 11:30 03/26/23 11:00 03/26/23 10:30 03/26/23 16:17 Room Air 03/26/23 10:22 Room Air 03/26/23 09:17 Room Air Intake and Output 03/26/23 03/26/23 03/26/23 07:59 15:59 23:59 Other: Weight 180 lb 180 lb 4 oz Patient Weight 03/26/23 23:59 Weight 180 lb 4 oz Laboratory Results - last 24 hr 03/26/23 09:25: WBC 7.9, RBC 4.58, Hgb 14.6, Hct 43.9, MCV 96.0, MCH 31.8 H, MCHC 33.1, RDW 13.1, Plt Count 203, MPV 8.5, Neut % (Auto) 66.0, Lymph % (Auto) 27.2, [place] % (Auto) 4.4, Eos % (Auto) 2.1, Baso % (Auto) 0.4, Neut # (Auto) 5.2, Lymph # (Auto) 2.2, [place] # (Auto) 0.4, Eos # (Auto) 0.2, Baso # (Auto) 0.0, D-Dimer 0.57 H, Sodium 141, Potassium 3.7, Chloride 108 H, Carbon Dioxide 27, Anion Gap 9.7, BUN 12, Creatinine 0.70, Estimated Creat Clear 128, Estimated GFR 90, Est GFR ( Amer) 109, Glucose 81, Calcium 9.3, Total Bilirubin 0.4, AST 33, ALT 29 D, Alkaline Phosphatase 66, Troponin I 0.02, Total Protein 7.5, Albumin 4.5, Globulin 3.0, Albumin/Globulin Ratio 1.5, Serum HCG, Qual Negative 03/26/23 12:13: Troponin I 0.44 H I & O for Labs for Last 24 Hours: Intake & Output 03/23/23 03/24/23 03/25/23 03/26/23 23:59 23:59 23:59 23:59 Weight 180 lb 4 oz Constitutional: Present no acute distress Respiratory: Present normal respiratory effort Cardiac: Present Reg Rate and Rhythm GI: Present normal bowel sounds; Absent tenderness Extremities: Present normal inspection and full ROM Skin: Present intact; Absent erythema Neuro: Present Grossly Intact and moves all extremities Assessment and Plan *Assessment and plan (1) Near syncope: Status: Acute Category: Medical Code(s): R55 - Syncope and collapse (2) Abnormal electrocardiogram [ECG] [EKG]: Status: Acute Category: Medical Code(s): R94.31 - Abnormal electrocardiogram [ECG] [EKG] (3) Palpitations: Status: Chronic Category: Medical Code(s): R00.2 - Palpitations (4) Tachycardia: Status: Chronic Category: Medical Code(s): R00.0 - Tachycardia, unspecified Plan Add bisoprolol, H&P to follow.
--- NOTE | 2023-03-26 18:23 | EXP.HP ---
History of Present Illness *Admission Date: 03/26/23 *Reason for visit:: chest pain, tachycardia *History of present illness: Patient is a 47-year-old male with past medical history of anxiety, previous documented tachycardia of undetermined etiology who presents to the emergency department for evaluation of racing heart. History is obtained by patient at bedside. Onset was acute, occurring earlier this morning while patient was at work at [employer]. Patient states that normally with her anxiety that it takes 10 to 15 minutes for it to resolve, however due to persistent symptoms, she presents here for continued evaluation. There is vague substernal chest pain that does not radiate. No other acute complaints at this time. Patient is hemodynamically stable nontoxic-appearing upon arrival, tachycardic. Differential diagnosis includes ACS, pulmonary embolism, anxiety, among others. Work-up will be conducted with hematologic labs, chest x-ray, EKG, D-dimer, troponins. Initial inventions include aspirin, hydroxyzine. Work-up reviewed by me, hematologic labs remarkable for elevated D-dimer for which PE cannot be excluded per years criteria, initial troponin 0.02. Repeat troponin significant delta 0.44. Given this although pulmonary embolism is unlikely it is a cause of right heart strain and otherwise largely healthy individual will be excluded with CT pulmonary embolism. CTA shows no evidence of pulmonary embolism. The case was discussed with cardiology regarding management who will proceed with heart catheterization at this time. (above as per ER physician) The patient was taken to the feed mill lab technician and no stents were placed. She was admitted for monitoring overnight. [facility] Disclaimer: The information contained in this section may have been updated after the patient was seen, as this information can be updated by other users. Medical History Anxiety Family history of atherosclerosis History of venomous spider bite Hyperlipidemia, mixed Migraines Palpitations Rheumatoid arthritis Right axis deviation Tachycardia Tobacco use Surgical History (Updated 03/26/23 @ 18:27 by SOWMYA Sorenson) History of axillary surgery Family History (Updated 03/26/23 @ 18:28 by SOWMYA Sorenson) Coronary artery disease Heart attack Cancer Hypertension Social History (Updated 03/26/23 @ 17:42 by Zbigniew Plata RN) Smoking Status: Current every day smoker tobacco type: cigarettes second hand exposure: No alcohol intake: current substance use type: denies use current occupational status: employed and other Travel in the last 8 weeks: Inside the [facility] household members: family housing: house current occupational exposures/hazards: No caffeine: No Review of Systems Constitutional Constitutional: Reports body ache(s), Reports chills, Reports fatigue, Denies fever(s), Reports headache(s) and Reports weakness Eyes Eyes: Denies blurry vision and Denies diplopia ENT Ears, Nose, Mouth, and Throat: Reports headache(s), Denies nasal congestion, Denies sore throat and Reports vertigo *Cardiovascular Cardiovascular: Reports chest pain, Reports dyspnea and Reports palpitations *Respiratory Respiratory: Denies cough and Reports dyspnea *Gastrointestinal Gastrointestinal: Denies abdominal pain, Denies diarrhea, Denies nausea and Denies vomiting *Genitourinary Genitourinary: Denies difficulty voiding and Denies dysuria *Musculoskeletal Musculoskeletal: Reports arthralgias and Reports myalgias *Neurologic Neurologic: Reports headache(s), Reports vertigo and Reports weakness Endocrine Endocrine: Reports fatigue and Reports palpitations Meds Home Medications and Allergies Home Medications Medication Instructions Recorded Confirmed Type atorvastatin 10 mg tablet (Lipitor) 10 mg PO DAILY Cholesterol 05/10/19 03/26/23 History fluticasone propionate 50 1 - 2 spr intranasal DAILY ##1 04/08/20 03/26/23 Rx mcg/actuat
[2023-03-27] VITALS: PULSE 60
[2023-03-27 00:35] VITALS: BP 98/52; PULSE 66; RESP 16; O2SAT 97
[2023-03-27 04:00] VITALS: BP 116/68; PULSE 60; RESP 16; TEMP 36.8; O2SAT 98; BMI 29.0
--- NOTE | 2023-03-27 05:47 | PC.NURSE ---
Patient post of from Heart Cath; VS WNL; toleraled wristlet being taken off with no s/s of bleeding noted; dressing applied. Patient advised to not use right arm not pushing/pulling herself up in bed or lifting anything over 1 pound for the next week. Patient denies having any further concerns at this time.
[2023-03-27 07:46] VITALS: BP 120/64; PULSE 68; RESP 16; TEMP 36.8; O2SAT 98
[2023-03-27 08:00] VITALS: PULSE 64
--- NOTE | 2023-03-27 09:26 | EXP.ACUTE.PN ---
Subjective *Date: 03/27/23 *Time: 09:26 Interval history: The chart is reviewed from her admission yesterday. She has been stable overnight. She does not have chest pain. She presented with an episode of tachycardia and elevated troponin. Cardiac catheterization revealed normal coronary arteries. Ejection fraction was greater than 65%. Bisoprolol was initiated. This is to be continued. A loop recorder was suggested. Follow-up will be with cardiology. Dr. Epps will see her in the office this week. Medical Exam Vital signs and Labs for Last 24 Hours: Vital Signs Temp Pulse Pulse Resp BP BP Pulse Ox 03/27/23 09:00 03/27/23 08:00 64 03/27/23 08:00 03/27/23 07:46 98.3 F 68 16 120/64 98 03/27/23 06:33 03/27/23 04:00 60 03/27/23 05:00 03/27/23 03:00 03/27/23 04:00 98.2 F 60 16 116/68 98 03/27/23 00:35 66 16 98/52 L 97 03/26/23 23:35 65 16 95/47 L 96 03/26/23 22:35 66 16 93/57 L 96 03/26/23 21:35 60 16 97/64 L 96 03/26/23 20:35 71 18 125/68 97 03/26/23 19:35 72 18 104/64 L 96 03/26/23 19:05 66 18 111/70 96 03/27/23 00:53 03/26/23 23:00 03/26/23 21:00 03/26/23 20:00 96 03/27/23 00:00 60 03/26/23 20:00 62 03/26/23 18:28 03/26/23 18:22 03/26/23 18:00 03/26/23 18:05 73 18 124/64 99 03/26/23 18:05 75 18 118/67 99 03/26/23 17:50 73 18 129/64 99 03/26/23 17:35 77 18 131/91 H 99 03/26/23 17:20 72 18 128/78 99 03/26/23 17:06 82 20 130/78 95 03/26/23 16:55 70 20 124/73 97 03/26/23 16:52 77 76 20 143/84 H 95 03/26/23 15:30 78 18 145/88 H 97 03/26/23 15:00 68 18 115/66 98 03/26/23 14:30 76 18 120/72 96 03/26/23 13:30 74 18 129/82 98 03/26/23 13:00 72 20 110/73 03/26/23 12:30 70 18 107/69 L 98 03/26/23 12:00 71 18 114/60 97 03/26/23 11:30 71 16 115/69 97 03/26/23 11:00 70 18 116/74 97 03/26/23 10:30 71 18 104/73 L 98 03/26/23 16:17 98.0 F 69 18 143/79 H 03/26/23 10:22 83 16 126/80 96 O2 Del Method 03/27/23 09:00 Room Air 03/27/23 08:00 03/27/23 08:00 Room Air 03/27/23 07:46 Room Air 03/27/23 06:33 Room Air 03/27/23 04:00 03/27/23 05:00 Room Air 03/27/23 03:00 Room Air 03/27/23 04:00 Room Air 03/27/23 00:35 Room Air 03/26/23 23:35 Room Air 03/26/23 22:35 Room Air 03/26/23 21:35 Room Air 03/26/23 20:35 Room Air 03/26/23 19:35 Room Air 03/26/23 19:05 Room Air 03/27/23 00:53 Room Air 03/26/23 23:00 Room Air 03/26/23 21:00 Room Air 03/26/23 20:00 Room Air 03/27/23 00:00 03/26/23 20:00 03/26/23 18:28 Room Air 03/26/23 18:22 Room Air 03/26/23 18:00 Room Air 03/26/23 18:05 Room Air 03/26/23 18:05 Room Air 03/26/23 17:50 Room Air 03/26/23 17:35 Room Air 03/26/23 17:20 Room Air 03/26/23 17:06 Room Air 03/26/23 16:55 Room Air 03/26/23 16:52 Room Air 03/26/23 15:30 03/26/23 15:00 03/26/23 14:30 03/26/23 13:30 03/26/23 13:00 03/26/23 12:30 03/26/23 12:00 03/26/23 11:30 03/26/23 11:00 03/26/23 10:30 03/26/23 16:17 Room Air 03/26/23 10:22 Room Air Intake and Output 03/26/23 03/27/23 03/27/23 19:59 03:59 11:59 Intake Total 270 / 540 270 / 540 Output Total 0 / 2 2 / 2 Balance 270 / 538 0 / 538 268 / 538 Intake: Intake, Oral Amount 270 / 540 270 / 540 Output: Output, Urine Amount 0 / 2 2 / 2 Other: Number of Unmeasured Voids 1 0 Weight 180 lb 4 oz 180 lb 3.999 oz Patient Weight 03/27/23 11:59 Weight 180 lb 3.999 oz Laboratory Results - last 24 hr 03/26/23 09:25: WBC 7.9, RBC 4.58, Hgb 14.6, Hct 43.9, MCV 96.0, MCH 31.8 H, MCHC 33.1, RDW 13.1, Plt Count 203, MPV 8.5, Neut % (Auto) 66.0, Lymph % (Auto) 27.2, [place] % (Auto) 4.4, Eos % (Auto) 2.1, Baso % (Auto) 0.4, Neut # (Auto)
[2023-03-27 10:09] LABS: Chloride 108 mmol/L (98-107); Potassium 4.2 mmoL/L (3.5-5.1); Sodium 139 mmol/L (136-145)
[2023-03-27 10:12] LABS: Anion Gap 8.2 mEq/L (5-15); Blood Urea Nitrogen 14 mg/dl (7-17); Calcium 8.8 mg/dl (8.4-10.2); Carbon Dioxide 27 mmol/L (22.0-30.0); Creatinine Clearance Estimated 128 mL/min (50-200); Estimated Glomerular Filt Rate 90 ml/min (>60); GFR (African American) 109 ML/MIN (>60); Glucose 89 mg/dl (74-100)
[2023-03-27 10:25] LABS: Troponin I 0.19 ng/ml (0.00-0.034)
[2023-03-27 10:44] LABS: Thyroid Stimulating Hormone 1.12 uIU/mL (0.465-4.68)
--- NOTE | 2023-03-29 16:43 | CARE MANAGER ---
Contacted patient related to hospital discharge. Patient has follow up with cardiology and PCP on 04/01/23. She has her new medications and denies questions or concerns. DIONNA Bhakta
--- NOTE | 2023-03-30 23:03 | EXP.DC.SUM ---
General Admission date:: 03/26/23 Discharge date: 03/27/23 HPI HPI HPI: Patient is a 47-year-old male with past medical history of anxiety, previous documented tachycardia of undetermined etiology who presents to the emergency department for evaluation of racing heart. History is obtained by patient at bedside. Onset was acute, occurring earlier this morning while patient was at work at [employer]. Patient states that normally with her anxiety that it takes 10 to 15 minutes for it to resolve, however due to persistent symptoms, she presents here for continued evaluation. There is vague substernal chest pain that does not radiate. No other acute complaints at this time. Patient is hemodynamically stable nontoxic-appearing upon arrival, tachycardic. Differential diagnosis includes ACS, pulmonary embolism, anxiety, among others. Work-up will be conducted with hematologic labs, chest x-ray, EKG, D-dimer, troponins. Initial inventions include aspirin, hydroxyzine. Work-up reviewed by me, hematologic labs remarkable for elevated D-dimer for which PE cannot be excluded per years criteria, initial troponin 0.02. Repeat troponin significant delta 0.44. Given this although pulmonary embolism is unlikely it is a cause of right heart strain and otherwise largely healthy individual will be excluded with CT pulmonary embolism. CTA shows no evidence of pulmonary embolism. The case was discussed with cardiology regarding management who will proceed with heart catheterization at this time. (above as per ER physician) The patient was taken to the radiographer cardiac catheterization and no stents were placed. She was admitted for monitoring overnight. Hospital Course Hospital Course Hospital Course: The patient's heart cath showed normal coronaries with a normal ejection fraction but a borderline LVEDP. Cardiology recommended a loop recorder. Dr. Quintero felt she was clearly experiencing a tachyarrhythmia which was producing a troponinemia from a type II myocardial infarction. He recommended bisoprolol 5 mg daily prior to discharge and a cardiac MRI on an outpatient basis. The patient was stable overnight and had no further chest pain. She was stable to be discharged and will follow-up with Dr. Epps as well as cardiology for further testing. Exam Data for Last 24 hours Vital signs and Labs for Last 24 Hours: Temp Pulse Resp BP Pulse Ox O2 Del Method 98.3 F 64 16 120/64 98 Room Air 03/27/23 07:46 03/27/23 08:00 03/27/23 07:46 03/27/23 07:46 03/27/23 07:46 03/27/23 09:00 Narrative: Constitutional Constitutional: no acute distress *Routine HEENT Exam Head: Present normocephalic and atraumatic Eye: Present EOMI and PERRL ENT: Present mucous membranes moist *Routine Neck Exam Neck: Present supple and full ROM *Routine Respiratory Exam Respiratory: Present CTA bilaterally *Routine Cardiovascular Exam Cardiovascular: Present RRR *Routine Abdominal Exam Abdominal: Present soft and normoactive bowel sounds; Absent tenderness *Routine Rectal Exam Rectal:: deferred *Routine Genitalia Exam Genitalia:: deferred *Routine Extremities Exam Extremities: Absent cyanosis, clubbing or edema *Routine Skin Exam Skin: Present intact; Absent erythema *Routine Neurological Exam Neurological: Present alert and oriented X3 DS: Diagnosis Discharge Diagnosis (1) Elevated troponin: Status: Acute Code(s): R79.89 - Other specified abnormal findings of blood chemistry (2) Tachyarrhythmia: Status: Acute Code(s): R00.0 - Tachycardia, unspecified (3) Non-ST elevation AR (NSTEMI): Status: Acute Code(s): I21.4 - Non-ST elevation (NSTEMI) myocardial infarction (4) Family history of atherosclerosis: Status: Chronic Code(s): Z82.49 - Family history of ischemic heart disease and other diseases of the circulatory system (5) Tobacco use: Status: Chronic Code(s): Z72.0 - Tobacco use (6) Palpitations
== END 2023-03-27 10:31 | disposition home or self-care (01) ==
LOC: ER 15:37 → 2ND 16:18
PROVIDERS: Internal Medicine; Admitting Provider Family Medicine; Emergency Provider Emergency Medicine; PCP Family Medicine; Visit Provider Family Medicine
DX: I21.4 Non-ST elevation (NSTEMI) myocardial infarction (principal); R55 Syncope and collapse; R94.31 Abnormal electrocardiogram [ECG] [EKG]; F17.210 Nicotine dependence, cigarettes, uncomplicated; Z82.49 Family history of ischemic heart disease and other diseases of the circulatory system
CPT/HCPCS: 71046; 71275; 80048; 80053; 84443; 84484; 84703; 85025; 85378; 93005; 93458; 99152; C1725; C1769; G0378; J1644; Q9967

== ENCOUNTER → 2023-04-01 10:33 | Outpatient (CLI) | payer BC, SELFPAY | PROVIDERS: PCP Family Medicine; Visit Provider Internal Medicine | DX: R00.2 Palpitations (principal); R00.0 Tachycardia, unspecified; R60.9 Edema, unspecified; R94.31 Abnormal electrocardiogram [ECG] [EKG]; Z72.0 Tobacco use | CPT/HCPCS: 93270 ==

== ENCOUNTER → 2023-04-16 14:52 | Outpatient (CLI) | payer BC, SELFPAY ==
--- NOTE | 2023-04-16 14:53 | CA_ITS ---
APPROVED REPORT EXAM: Comprehensive 2D, Doppler, and color-flow Echocardiogram Appraiser Art: Marly Miller, RCS, RVS Ht: 5 ft 5 in Wt: 179lbs BSA: 1.89 BP: 117/44 mmHg Indications: SVT, Palpitations, smoker 2D Dimensions Aortic Root 2.73 cm F: 2.7 - 3.3 LA Volume 48.50 mL Left Atrium 3.27 cm F: 2.7 - 3.8 LA Volume Index 25.66 mL/m2 (M/F) 16-34 LVOT 1.84 cm (M/F) 1.5-2.5 M-Mode Dimensions RVDd 2.18 cm (0.9-2.6) LA Diam 3.70 cm (1.9-4.0) LVDd 5.36 cm (3.5-5.7) Ao Diam 2.76 cm (2.0-3.7) LVDs 3.34 cm (3.5-5.7) IVSd 1.07 cm (0.6-1.1) PWd 1.04 cm (0.6-1.1) EF (Teich) 63.70% EPSs 0.43 cm FS 34.80% EDV (Teich) 124.90 mL TAPSE 2.34 (<1.7) ESV (Teich) 45.40 mL LV Diastology E Decel Time 273.00 (160-240 msec) E/A Ratio 1.57 MED E' 12.00 (< 7 cm/sec) MED A' 10.50 cm/s E'/MED E' Ratio 6.59 (>14) LAT E' 10.80 (<10 cm/sec) LAT A' 7.20 cm/s E/LAT E' Ratio 7.32 (>14) Aortic Valve LVOT Max 87.00 (70-110 cm/s) LVOT VTI 22.21 cm AoV Peak Dennis. 119.00 (50-130 cm/s) AO Peak GR. 5.60 mmHg AO Mean GR. 2.90 (<5 mmHg) AO VTI 30.43 (18-25 cm) KIP (VTI) 1.94 (2.5-4.5 cm2) Mitral Valve MV A Velocity 50.00 (40-130 cm/s) E/A Ratio 1.57 MV Decel. Time 273.00 (160-240 ms) Tricuspid Valve TR P. Velocity 217.00 cm/s RAP Estimate 10.00 mmHg RVSP 28.80 mmHg Left Ventricle The left ventricle is normal size. The left ventricular systolic function is normal. The left ventricular ejection fraction is within the normal range. There is normal left ventricular wall thickness. There is normal LV segmental wall motion. The left ventricular diastolic function is normal. LVEF is 60%. Right Ventricle The right ventricle is normal size. The right ventricular systolic function is normal. Atria The left atrium size is normal. The right atrium size is normal. There is no Doppler evidence of interatrial shunt. Aortic Valve The aortic valve opens well. There is no aortic valvular stenosis. No aortic regurgitation is present. Mitral Valve The mitral valve is normal in structure. No evidence of mitral valve stenosis. Trace mitral regurgitation. Tricuspid Valve The tricuspid valve leaflets are thin and pliable. Mild tricuspid regurgitation. RVSP is 20-25 mmHg. Pulmonic Valve The pulmonary valve is normal in structure. Trace pulmonic regurgitation. Great Vessels The aortic root is normal in size. The ascending aorta is normal in size. IVC is normal in size and collapses >50% with inspiration. Pericardium There is no pericardial effusion. Other Information Study Quality: Adequate Conclusion Normal biventricular systolic function. Mild MR, mild TR. Electronically signed by : Tamiko Thacker MD 04/26/2023 23:56:23
== END ==
PROVIDERS: PCP Family Medicine; Visit Provider Nurse Practitioner
DX: R00.0 Tachycardia, unspecified (principal); R00.2 Palpitations; R94.31 Abnormal electrocardiogram [ECG] [EKG]; Z72.0 Tobacco use
CPT/HCPCS: 93306

== ENCOUNTER 2023-08-23 20:14 | Inpatient (IN) | payer BC, SELFPAY ==
[2023-08-23] VITALS (38 sets, daily range): BP systolic 64–131; BP diastolic 40–93; PULSE 69–199; RESP 9–26; TEMP 36.4; O2SAT 94–99; BMI 30.7
--- NOTE | 2023-08-23 20:17 | PC.NURSE ---
pt placed on surveillance monitor and noted to have HR of 200 bpm. Patient EKG and SL was completed and patient was taken to room 1t.
--- NOTE | 2023-08-23 20:18 | ECG_ITS ---
APPROVED REPORT Exam: Resting ECG HR:199 bpm ECG Measurements Heart Rate 199 AXES QRSd 85 QRS 98 QT 215 T -25 QTc 314 Conclusion SUPRAVENTRICULAR TACHYCARDIA BORDERLINE RIGHT AXIS DEVIATION [QRS AXIS > 90] LOW QRS VOLTAGE IN PRECORDIAL LEADS [QRS DEFLECTION < 1.0 mV IN CHEST LEADS] POSSIBLE RIGHT VENTRICULAR CONDUCTION DELAY [RSR (QR) IN V1/V2] NONSPECIFIC ST & T-WAVE ABNORMALITY CRITICAL TEST RESULT Electronically signed by : ARMANDO DILLARD, 08/24/2023 00:49:57
--- NOTE | 2023-08-23 20:34 | CT_ITS ---
PROCEDURE INFORMATION: Exam: CTA Chest With Contrast Exam date and time: 08/23/2023 11:17 PM Age: 47 years old Clinical indication: Other: Cp to back TECHNIQUE: Imaging protocol: Computed tomographic angiography of the chest with contrast. Exam focused on the arteries. 3D rendering (Not supervised by radiologist): MIP and/or 3D reconstructed images were created by the technologist. Total images: 700 Radiation optimization: All CT scans at this facility use at least one of these dose optimization techniques: automated exposure control; mA and/or kV adjustment per patient size (includes targeted exams where dose is matched to clinical indication); or iterative reconstruction. Contrast material: ISOVUE 370; Contrast volume: 100 ml; Contrast route: INTRAVENOUS (IV); COMPARISON: CT ANGIO CHEST PE PROTOCOL 03/26/2023 2:10 PM FINDINGS: Pulmonary arteries: Adequate contrast opacification of the pulmonary arteries. The main pulmonary artery is normal in caliber. No acute pulmonary emboli. Aorta: No thoracic aortic aneurysm or dissection. Veins: Air lucency in the brachiocephalic vein likely sequela of IV start or contrast injection. Lungs: Trachea and main bronchi are patent. Densely calcified left lower lobe granuloma. Lungs are clear and well expanded. No concerning infiltrate or airspace consolidation. No pulmonary mass. Pleural spaces: Unremarkable. No pneumothorax. No pleural effusion. Heart: Normal heart size. No pericardial effusion. Trace fluid in the superior pericardial recess is considered physiologic. Coronary arteries: No significant coronary artery calcifications. Mediastinal space: No mediastinal mass or fluid collection. Lymph nodes: Calcified left hilar and subcarinal lymph nodes compatible with remote granulomatous disease. Spleen: Scattered calcified splenic granuloma. Intraperitoneal space: No acute process in the upper abdomen. Bones/joints: Mild degenerative changes thoracic spine. No acute osseous abnormality. Soft tissues: Unremarkable. Other findings: Mild limitations imposed by respiratory motion artifact. IMPRESSION: 1. No acute intrathoracic process. 2. Specifically, no acute pulmonary emboli. 3. No aortic aneurysm or dissection. 4. Clear lungs. 5. Remote calcified granulomatous disease.
--- NOTE | 2023-08-23 20:35 | PC.NURSE ---
at bedside. Plan made to administer adenosine 6mg IVP x 1 dose. Contacted RT for bedside assistance. Zoll pads placed to left anterior chest wall and left posterior trunk. Continues rapid rate of SVT @ 198 bpm.
--- NOTE | 2023-08-23 20:35 | [facility].EDCP ---
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 08/23/23 22:18 8 mg ONCE ONE Administration Lactated Ringer's 2,000 mls @ 999 mls/hr 08/23/23 22:15 08/23/23 21:14 Lactated Ringer's 1000 Ml Bag IV 08/24/23 00:15 999 mls/hr .Q2H1M ONE Administration Iopamidol 100 ml 08/23/23 23:23 08/23/23 23:25 Iopamidol-370 (76%);100ml Bottle IV 08/23/23 23:24 100 ml ONCE ONE Administration Metoprolol Tartrate 5 mg 08/23/23 22:15 08/23/23 20:57 Metoprolol Tartrate 5mg/5ml Vial IV 08/23/23 22:16 5 mg ONCE ONE Administration Metoprolol Tartrate 5 mg 08/23/23 21:02 08/23/23 21:02 Metoprolol Tartrate 5mg/5ml Vial IV 08/23/23 21:03 5 mg ONCE ONE Administration Metoprolol Tartrate 5 mg 08/23/23 21:07 08/23/23 21:18 Metoprolol Tartrate 5mg/5ml Vial IV 08/23/23 21:08 5 mg ONCE ONE Administration Metoprolol Tartrate 5 mg 08/23/23 21:17 08/23/23 21:02 Metoprolol Tartrate 5mg/5ml Vial IV 08/23/23 21:18 5 mg ONCE ONE Administration Metoprolol Tartrate 5 mg 08/23/23 21:07 08/23/23 21:07 Metoprolol Tartrate 5mg/5ml Vial IV 08/23/23 21:08 5 mg ONCE ONE Administration Phenylephrine HCl 1 mg 08/23/23 22:18 08/23/23 20:59 Phenylephrine 10mg/Ml Vial IV 08/23/23 22:19 1 mg ONCE ONE Administration Phenylephrine HCl 1 mg 08/23/23 22:35 08/23/23 21:11 Phenylephrine 10mg/Ml Vial IV 08/23/23 22:36 1 mg ONCE ONE Administration Phenylephrine HCl 1 mg 08/23/23 22:35 08/23/23 21:26 Phenylephrine 10mg/Ml Vial IV 08/23/23 22:36 1 mg ONCE ONE Administration Phenylephrine HCl 1 mg 08/23/23 22:35 08/23/23 21:06 Phenylephrine 10mg/Ml Vial IV 08/23/23 22:36 1 mg ONCE ONE Administration Phenylephrine HCl 1 mg 08/23/23 22:35 08/23/23 21:04 Phenylephrine 10mg/Ml Vial IV 08/23/23 22:36 1 mg ONCE ONE Administration Phenylephrine HCl 1 mg 08/23/23 22:36 08/23/23 21:11 Phenylephrine 10mg/Ml Vial IV 08/23/23 22:37 1 mg ONCE ONE Administration Phenylephrine HCl 1 mg 08/23/23 22:37 08/23/23 21:01 Phenylephrine 10mg/Ml Vial IV 08/23/23 22:38 1 mg ONCE ONE Administration Phenylephrine HCl 1 mg 08/23/23 22:37 08/23/23 21:13 Phenylephrine 10mg/Ml Vial IV 08/23/23 22:38 1 mg ONCE ONE Administration Phenylephrine HCl 1 mg 08/23/23 22:37 08/23/23 20:59 Phenylephrine 10mg/Ml Vial IV 08/23/23 22:38 1 mg ONCE ONE Administration Phenylephrine HCl 1 mg 08/23/23 22:37 08/23/23 21:28 Phenylephrine 10mg/Ml Vial IV 08/23/23 22:38 1 mg ONCE ONE Administration Sodium Chloride 50 ml 08/23/23 23:23 08/23/23 23:25 0.9 % Sodium Chloride 50 Ml Vial IV 08/23/23 23:24 40 ml ONCE ONE Administration Sodium Chloride 10 ml 08/23/23 23:23 08/23/23 23:25 Sodium Chloride 0.9% 10ml Syr (Rad Only) IV 08/23/23 23:24 10 ml ONCE ONE Administration ORDERS Category Date Time Status CT angio chest - dissection Stat Cat Scan 08/23/23 20:34 Completed CBC w/Auto Diff [Complete Blood Count Auto Diff] Stat Lab 08/23/23 20:20 Completed CMP [Comprehensive Metabolic Panel] Stat Lab 08/23/23 20:20 Completed Free T4 (Free Thyroxine) Stat Lab 08/23/23 20:20 Completed MG [Magnesium] Stat Lab 08/23/23 20:20 Completed TSH [Thyroid Stimulating Hormone] Stat Lab 08/23/23 20:20 Completed Trop I [Troponin I] Stat Lab 08/23/23 20:20 Completed Troponin I Q3H Lab 08/23/23 23:36 Completed Troponin I Q3H Lab 08/24/23 02:45 Ordered MDM Narrative Medical Decision Narrative: In summary patient is a 47-year-old female with past medical history described above presents emergency department for evaluation of tachycardia and chest pain. Patient has extreme tachycardia heart rate 199 upon arrival, SVT. Patient's blood pressure is acceptable and is mentating appropriately. Patient underwent Valsalva maneuver at bedside with leg raise concordantly and was unsuccessful. Patient was placed on the ZOLL. Differential includes ACS, primary conduction abnormality, among others. Workup will be conducted with hematologic labs, CTA chest, EKG, troponin, chest x-ray, TSH, free T4. Patient's blood pressure was normal upon arrival, given no hemodynamic instability initially patient underwent attempted chemical cardioversion with 6 mg of adenosine at bedside. Rhythm went from SVT to atrial fibrillation to unsustained V. tach, back into supraventricular tachycardia. This is not what I would expect with adenosine administration in the setting of SVT. Given this the case was discussed with Dr. Quintero who recommends multiple doses of push dose metoprolol given that patient is already on bisoprolol at baseline in an effort to break the supraventricular tachycardia. Should hypotension arise continue giving metoprolol until SVT breaks and administer push dose Sulaiman-Synephrine. Push dose Sulaiman-Synephrine was fashioned at bedside and patient ultimately received multiple doses of push dose metoprolol with push dose phenylephrine for maintenance of mean arterial pressures greater than 60. After multiple rounds these were unsuccessful and patient had persistent low blood pressure with SVT heart rate between 190 and 200. Given this patient underwent electrical cardioversion facilitated by etomidate with success and improvement of hypotension although blood pressures remained soft had acceptable mean arterial pressures. Patient was loaded with amiodarone and subsequently started on amiodarone drip. Dr. Quintero recommends admission for cardiac monitoring overnight and evaluation in the morning. CTA informally visualized by me, no obvious dissection, should there be no dissection patient will be appropriate for admission at this institution. Formal CTA read pending at time of transition of care to the oncoming physician, Dr. Kirby. Kofi CERNA: I assumed care of the patient at the time of handoff from the prior provider. On reassessment, my interpretation of manager cardiac cath, patient is now normotensive with blood pressure 90/65, in sinus rhythm with rates below 100. Repeat EKG interpreted by me at 2342, sinus rhythm with ventricular rate of 70, no ST elevations. No evidence of arrhythmia. Patient remains on the amiodarone drip. CTA chest was independently interpreted by me and shows no evidence of aortic dissection or pulmonary embolism. Given this, patient was deemed appropriate for admission. Interactive discussion was had with Dr. Diaz on-call for Dr. Epps who accepted the patient.
[2023-08-23 20:44] LABS: Basophils # 0.2 K/mm3 (0-0.2); Basophils % 1.8 % (0.1-2.0); Chloride 111 mmol/L (98-107); Eosinophils # 0.5 K/mm3 (0.0-0.4); Eosinophils % 4.4 % (0.1-12.0); Hematocrit 46.3 % (37.0-47.0); Lymphocytes % 49.9 % (10-50); Mean Corpuscular HGB Conc 32.4 g/dL (31.8-35.4); Mean Corpuscular Hemoglobin 31.5 pg (27.0-31.2); Mean Corpuscular Volume 97.3 fl (81-99); Mean Platelet Volume 8.3 fl (7.4-10.4); Monocytes # 0.5 K/mm3 (0.1-1.0); Monocytes % 4.1 % (1.7-9.3); Neutrophils # 4.8 K/mm3 (1.8-7.8); Neutrophils % 39.7 % (37.0-80.0); Platelet Count 262 K/mm3 (142-424); Potassium 4.4 mmoL/L (3.5-5.1); Red Blood Count 4.76 M/mm3 (4.20-5.40); Red Cell Distribution Width 13.1 % (11.5-17.5); Sodium 141 mmol/L (136-145)
[2023-08-23 20:46] LABS: Blood Urea Nitrogen 13 mg/dl (7-17); Estimated Glomerular Filt Rate 59 ml/min (>60); GFR (African American) 72 ML/MIN (>60)
[2023-08-23 20:47] LABS: Alanine Aminotransferase 30 U/L (12-78); Albumin Level 4.4 g/dl (3.5-5.0); Albumin/Globulin Ratio 1.4 (1.1-1.8); Alkaline Phosphatase 74 U/L (38-126); Anion Gap 16.4 mEq/L (5-15); Aspartate Amino Transferase 39 U/L (14-36); Bilirubin,Total 0.4 mg/dl (0.2-1.3); Calcium 9.2 mg/dl (8.4-10.2); Carbon Dioxide 18 mmol/L (22.0-30.0); Globulin 3.1 g/dL (1.3-3.2); Glucose 93 mg/dl (74-100); Magnesium 1.9 mg/dl (1.6-2.3); Total Protein,Serum 7.5 g/dl (6.3-8.2)
--- NOTE | 2023-08-23 20:48 | ECG_ITS ---
APPROVED REPORT Exam: Resting ECG HR:198 bpm ECG Measurements Heart Rate 198 AXES QRSd 89 QRS 97 QT 214 T -83 QTc 313 Conclusion SUPRAVENTRICULAR TACHYCARDIA BORDERLINE RIGHT AXIS DEVIATION [QRS AXIS > 90] POSSIBLE RIGHT VENTRICULAR CONDUCTION DELAY [RSR (QR) IN V1/V2] ST DEVIATION AND MODERATE T-WAVE ABNORMALITY, CONSIDER INFERIOR ISCHEMIA [-0.1+ mV T-WAVE IN II/aVF] CRITICAL TEST RESULT Electronically signed by : ARMANDO DILLARD, 08/24/2023 00:49:18
[2023-08-23] MEDS: ADENOSINE 6MG/2ML VIAL 6 MG IV (20:54)
--- NOTE | 2023-08-23 20:54 | PC.NURSE ---
Adenosine 6 mg IVP given via right ac access. Immediate decrease in HR to 188, followed by immediate return to 198-200. MD at bedside during administration as per protocol.
[2023-08-23] MEDS: METOPROLOL TARTRATE 5MG/5ML VIAL 5 MG IV ×5 (20:57→21:18)
[2023-08-23] MEDS: PHENYLEPHRINE 10 MG/ML IV ×10 (20:59→21:28)
--- NOTE | 2023-08-23 21:00 | PC.NURSE ---
contacted Dr Quintero who suggested that due to rhythm changes patient begin receiving Metoprolol 5mg IVP Q5mins till rate reduces satisfactorily. In addition, it is decided to administer Neosynephrine 1mg Q2mins in b/t doses of metoprolol to keep MAP >65. Patient awake and alert and understands POC. See MAR for times.
[2023-08-23 21:10] LABS: Troponin I < 0.01 ng/ml (0.00-0.034)
[2023-08-23] MEDS: LACTATED RINGERS 1000ML 2,000 ML 999 ML IV (21:14)
[2023-08-23 21:45] LABS: Free T4 (Free Thyroxine) 1.42 ng/dl (0.78-2.19)
[2023-08-23] MEDS: AMIODARONE HCL 150MG/3ML VIAL 150 MG IVP (21:52)
[2023-08-23] MEDS: AMIODARONE HCL 900 MG in DEXTROSE 5 % IN WATER 500 ML 34.5300000000000011 MG IV (21:55)
--- NOTE | 2023-08-23 22:23 | PC.NURSE ---
This nurse remains at bedside throughout medication administration. Lowest HR @ this point has been 177. BP remains 'soft' ranging from 70-90's systolic despite neosynephrine administration. MD returns to room and this nurse asks for additional measures as current ones appear ineffective. MD states we will cardiovert patient and explains to patient at length what that means. Patient is agreeable to plan.
[2023-08-23] MEDS: ETOMIDATE 40MG/20ML VIAL 8 MG IV (22:30)
--- NOTE | 2023-08-23 22:33 | PC.NURSE ---
Etomidate given at this time. BVM utilized for oxygenation via RT standing at [facility]. Zoll charged to 200J and synchronized shock was delivered successfully after performing an all-clear. Amiodarone bolus was initiated.
--- NOTE | 2023-08-23 22:39 | PC.NURSE ---
Patient returned to baseline GCS of 15. Verbalizes location, procedure and promptly asks is it over upon awakening. ETCO2 34 @ this time. Continuing to monitor patient at bedside for any change in VS
--- NOTE | 2023-08-23 23:09 | PC.NURSE ---
pt requested to go to the bathroom. agreed i could ambulate her to the bathroom and to ct.
--- NOTE | 2023-08-23 23:09 | PC.NURSE ---
pt gone to ct
[2023-08-23] MEDS: 0.9 % SODIUM CHLORIDE 50 ML VIAL IV (23:25)
[2023-08-23] MEDS: SODIUM CHLORIDE 0.9% 10ML SYR (RAD ONLY) 10 ML IV (23:25)
[2023-08-23] MEDS: IOPAMIDOL-370 (76%);100ML BOTTLE 100 ML IV (23:25)
[2023-08-24] VITALS (22 sets, daily range): BP systolic 79–135; BP diastolic 41–75; PULSE 50–69; RESP 11–20; TEMP 36.5–36.9; O2SAT 95–99; BMI 31.1; BMI 30.2
[2023-08-24 00:13] LABS: Troponin I 0.04 ng/ml (0.00-0.034)
--- NOTE | 2023-08-24 01:20 | PC.NURSE ---
Discussed blood pressures with Dr. Kirby. Patient is alert, reports no dizziness or pain at this time. MAP is > [address] Kirby reports that MAP > 60 is preferred. Notify provider if MAP < 60 or patient becomes symptomatic.
--- NOTE | 2023-08-24 01:31 | PC.NURSE ---
Nurse to nurse report given via phone to Bernie VILLAREAL.
--- NOTE | 2023-08-24 01:48 | PC.NURSE ---
Patient arrived to floor via stretcher from ED at 01:46.
[2023-08-24] MEDS: AMIODARONE HCL 900 MG in DEXTROSE 5 % IN WATER 500 ML 34.5300000000000011 MG IV (02:30)
--- NOTE | 2023-08-24 02:55 | PC.NURSE ---
08/24/2023: @0123 REPORT CALLED TO THIS RN FROM , RN FROM ED @0146 PT ARRIVED TO THE FLOOR. DURING THIS TIME, THIS RN WAS ASSESSING THE PT AND AMIO GTT HANGING FROM ED; AMIO BOLUS WAS HANGING STILL AND INFUSING @ A MAINTENANCE AMIO GTT @ 1MG/HR. THIS RN NOTIFIED CHARGE NURSE FOR ASSISTANCE AND TO VERIFY AMIO BOLUS HANGING INSTEAD ON MAINTENANCE GTT. PLUM PUMP WAS PROGRAMED INCORRECTLY WELL. PUMP WAS PROGRAMED FROM MAINTENANCE DOSE AND NOT BOLUS DOSE AND NO FILTER WAS NOTED ON AMIO BOLUS/GTT FROM ED. IN ED PER CHARTING: AMIO BOLUS STARTED @ 2152 (08/23/23) AND AMIO MAINTENANCE STARTED @ 2155 (08/23/23) @0212: THIS RN NOTIFIED [facility] AND SPOKE WITH HOMA. HOMA WAS MADE AWARE OF THE SITUATION AND SAID TO BOLUS THE REMAINDER OF THE BOLUS IT SHOULD OF BEEN DONE AND THEN RESTART THE AMIO MAINTENANCE GTT WITH THE RIGHT CONCENTRATION AND RESTART THE 6 HOURS @ 1MG/HR; THE CORRECT AMIO GTT WITH A FILTER WAS ADMINISTERED @ 0230 AND WILL NEED TO BE TITRATED TO 0.5MG/HR @ 0830. CLAIMS COUNSEL NOTIFIED BY CHARGE NURSE AND THEN CHARGE NURSE SPOKE WITH Jose THORPE RN WHO STATED SHE WILL CHANGE/DISCONTINUE/CORRECT THE ORDERS SO THIS RN IS ABLE TO SCAN AND HANG THE PROPER AMIO MAINTENANCE GTT.
[2023-08-24 03:18] LABS: Troponin I 0.16 ng/ml (0.00-0.034)
--- NOTE | 2023-08-24 07:35 | HMH.PHAINT1 ---
Pharmacy Intervention Comments: MEDICATION RECONCILIATION COMPLETED ON PATIENT USING EXTERNAL FILL HISTORY FROM PHARMACY. -CONSUELO ROSE, JESSICAD
--- NOTE | 2023-08-24 07:40 | PC.NURSE ---
All care and documentation provided by SN Subhash was completed under my direct supervision. Vicky Ramirez RN
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
--- NOTE | 2023-08-24 08:59 | PC.NURSE ---
amiodarone drip decreased to 17.3ml/hr at 0845
--- NOTE | 2023-08-24 10:09 | CA_ITS ---
APPROVED REPORT EXAM: Limited 2D Echocardiogram Forest Ecologist: Marly Miller, RCS, RVS Ht: 5 ft 6 in Wt: 188lbs BSA: 1.95 HR: 71 bpm BP: 116/60 mmHg Rhythm: NSR Indications: s/p cardioversion, Afib/SVT 2D Dimensions LVDd 5.19 cm LVEF (Visual) 54.30 % LVDs 3.72 cm M-Mode Dimensions RVDd 2.45 cm (0.9-2.6) LA Diam 3.30 cm (1.9-4.0) LVDd 5.24 cm (3.5-5.7) LVDs 3.72 cm (3.5-5.7) IVSd 0.71 cm (0.6-1.1) PWd 0.77 cm (0.6-1.1) EF (Teich) 50.60% EPSs 0.64 cm FS 25.90% EDV (Teich) 119.30 mL ESV (Teich) 58.90 mL Other Information Study Quality: Fair Conclusion This is a limited TTE to evaluate for LVEF in the setting of recent A-fib s/p cardioversion. The left ventricle is normal in size. There is normal LV wall thickness. There is normal LV systolic function. No regional wall motion abnormalities are noted. LVEF is 55%. The right ventricle appears normal in size and function. The left and right atria are normal in size. There is no evidence of pericardial effusion. The AV and MV leaflets open well, cannot evaluate for regurgitation in the setting of no Doppler assessment. Electronically signed by : Tamiko Thacker MD 08/26/2023 11:53:56
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
[2023-08-24] MEDS: APIXABAN 5MG TABLET 5 MG PO ×2 (11:28→20:31)
[2023-08-24] MEDS: AMIODARONE 200MG TABLET 400 MG PO ×2 (11:28→20:33)
[2023-08-24 12:05] LABS: Chol/HDL Ratio 3.4 (1-3.5); Cholesterol 176 mg/dl (140-200); HDL Cholesterol 52 mg/dl (40-60); Triglycerides 236 mg/dl (30-150); VLDL Cholesterol 47 mg/dL (0-40)
[2023-08-24 12:15] LABS: Direct LDL Cholesterol 75.98 mg/dL (100-129)
[2023-08-24] MEDS: ATORVASTATIN 10MG TABLET 10 MG PO (12:26)
[2023-08-24] MEDS: BISOPROLOL 5MG TABLET 10 MG PO (12:26)
[2023-08-24] MEDS: ASPIRIN EC 81MG TABLET 81 MG PO (12:26)
--- NOTE | 2023-08-24 23:40 | ECG_ITS ---
APPROVED REPORT Exam: Resting ECG HR:70 bpm ECG Measurements Heart Rate 70 AXES AL 144 P 73 QRSd 109 QRS -88 QT 403 T 53 QTc 424 Conclusion SINUS RHYTHM LOW QRS VOLTAGE [QRS DEFLECTION < 0.5/1.0 mV IN LIMB/CHEST LEADS] POSSIBLE RIGHT VENTRICULAR CONDUCTION DELAY [RSR (QR) IN V1/V2] Electronically signed by : FANI NIELSEN, 08/24/2023 15:30:29
[2023-08-25] VITALS: PULSE 56; TEMP 36.9
[2023-08-25 04:00] VITALS: BP 124/68; PULSE 46; PULSE 54; RESP 15; TEMP 36.9; BMI 29.8
[2023-08-25 07:47] VITALS: TEMP 36.7
[2023-08-25 08:00] VITALS: PULSE 56; PULSE 60; RESP 11; O2SAT 96
--- NOTE | 2023-08-25 08:07 | P.PN_ITS ---
Subjective *Date: 08/25/23 *Time: 09:20 Interval history: Patient is feeling well this am other than pain in her left arm. Her IV was moved to the right arm and she has some pain and swelling in the left. She denies any other pain. She slept off and on and is eating well. Denies any CP. Medical Exam Vital signs and Labs for Last 24 Hours: Vital Signs Temp Pulse Pulse Resp BP Pulse Ox O2 Del Method 08/25/23 07:47 98.0 F 08/25/23 06:57 Room Air 08/25/23 05:00 Room Air 08/25/23 04:00 46 L 08/25/23 04:00 98.4 F 08/25/23 04:00 124/68 08/25/23 04:00 54 L 15 BiPAP 08/25/23 04:00 Room Air 08/25/23 03:00 Room Air 08/25/23 01:00 Room Air 08/25/23 00:00 56 L 08/25/23 00:00 98.4 F 08/24/23 23:00 Room Air 08/24/23 22:00 50 L 14 111/67 97 Room Air 08/24/23 21:00 Room Air 08/24/23 20:00 55 L 11 L 123/41 L 98 Room Air 08/24/23 20:00 Room Air 08/24/23 20:00 98.3 F 08/24/23 20:00 54 L 08/24/23 18:30 Room Air 08/24/23 18:00 57 L 18 135/72 99 Room Air 08/24/23 17:00 Room Air 08/24/23 16:00 60 08/24/23 16:00 68 98 Room Air 08/24/23 16:00 98.2 F 58 L 18 128/75 96 Room Air 08/24/23 15:00 Room Air 08/24/23 14:00 54 L 18 120/74 96 Room Air 08/24/23 13:00 Room Air 08/24/23 12:32 60 08/24/23 11:30 57 L 20 117/68 99 Room Air 08/24/23 11:00 Room Air 08/24/23 10:00 58 L 16 116/60 95 Room Air 08/24/23 09:00 Room Air Intake and Output 03/08/25/23 08/25/23 19:59 03:59 11:59 Intake Total 826 / 826 Output Total 0 / 0 0 / 0 Balance 826 / 826 0 / 826 Intake: Intake, Oral Amount 480 / 480 Intake, Total IV Amount 346 / 346 Amiodarone HCl 900 mg In 346 / 346 Dextrose 5 % in Water 500 ml @ 1 MG/MIN 34.533 mls/hr IV . Q15H1M [facility] Rx#:[id number] Output: Output, Urine Amount 0 / 0 0 / 0 Other: Number of Unmeasured Voids 1 1 Weight 185 lb 9.6 oz Patient Weight 08/25/23 11:59 Weight 185 lb 9.6 oz Laboratory Results - last 24 hr 08/24/23 02:50: Triglycerides 236 H, Cholesterol 176, LDL Cholesterol Direct 75.98 L, VLDL Cholesterol 47 H, HDL Cholesterol 52, Cholesterol/HDL Ratio 3.4 I & O for Labs for Last 24 Hours: Intake & Output 08/22/23 08/23/23 08/24/23 08/25/23 11:59 11:59 11:59 11:59 Intake Total 826 / 826 Output Total 0 / 0 0 / 0 Balance 0 / 0 826 / 826 Weight 188 lb 1.6 oz 185 lb 9.6 oz Constitutional: Present no acute distress Respiratory: Present CTA bilaterally Cardiac: Present Reg Rate and Rhythm GI: Present soft and normal bowel sounds; Absent distention or tenderness Extremities: Absent edema, clubbing or cyanosis Skin: Present intact and erythema (left antecubital area with swelling and tenderness) Neuro: Present alert and awake Assessment and Plan *Assessment and plan (1) Nonsustained ventricular tachycardia: Status: Acute Category: Medical Code(s): I47.29 - Other ventricular tachycardia (2) Tachyarrhythmia: Status: Resolved Category: Medical Code(s): R00.0 - Tachycardia, unspecified (3) Elevated troponin: Status: Resolved Category: Medical Code(s): R79.89 - Other specified abnormal findings of blood chemistry (4) Hypotension: Status: Acute Qualifiers: Hypotension type: hypotension due to drug Qualified Code(s): I95.2 - Hypotension due to drugs Category: Medical Code(s): I95.9 - Hypotension, unspecified (5) Atrial fibrillation with RVR: Status: Acute Category: Medical Code(s): I48.91 - Unspecified atrial fibrillation (6) Tobacco use: Status: Chronic Category: Social Hx Code(s): Z72.0 - Tobacco use Plan Plan from cardiology yesterday: Continue IV amiodarone and start oral amiodarone Check limited echocardiogram Start oral anticoagulation and stop aspirin Anticipate discharge home tomorrow Still awaiting echo results. Will discuss further care with Dr. Garcia. Cardiology to see. Dr. Garcia entry - Saw patient, left upper ext. u/s prelim show superficial thrombophlebitis. OK to discharge home today. Pt to see EP at [place] on 08/31. She should be off work until 09/03/23.
[2023-08-25] MEDS: BISOPROLOL 5MG TABLET 10 MG PO (08:11)
[2023-08-25] MEDS: ATORVASTATIN 10MG TABLET 10 MG PO (08:11)
[2023-08-25] MEDS: ASPIRIN EC 81MG TABLET 81 MG PO (08:12)
[2023-08-25] MEDS: AMIODARONE 200MG TABLET 400 MG PO (08:12)
[2023-08-25] MEDS: APIXABAN 5MG TABLET 5 MG PO (08:12)
--- NOTE | 2023-08-25 08:23 | CA_ITS ---
FINAL REPORT TECHNIQUE: Graded compression, spectral analysis and ultrasound images of the venous system of the upper extremity were obtained. CLINICAL HISTORY: swelling and tenderness post IV stick. IV was placed in left antecubital region 08/23/23. She states left arm IV site began hurting 08/24/23 and was removed. Redness, edema, and pain at site since this time. Currently taking Eliquis. FINDINGS: The jugular vein, subclavian vein, axillary vein, brachial vein, cephalic vein and basilic venous system are fully compressible and demonstrate no evidence of thrombosis. IMPRESSION: No evidence of thrombosis of the venous system of the left upper extremity. Reviewed, Interpreted and Dictated by Dragan Guaman MD Transcribed by Vane Tafoya Authenticated and [facility]
--- NOTE | 2023-08-25 08:25 | P.PN_ITS ---
Subjective Subjective Date: 08/25/23 Time: 08:25 Principal diagnosis: SVT, A. fib, V. tach Interval history: 47-year-old white female in bed in no acute distress. Left upper extremity swelling and tenderness at prior IV site noted. Possible IV infiltration versus venous thrombosis. Radial pulses good. Telemetry continues to show sinus rhythm. Exam Data for Last 24 hours Vital signs and Labs for Last 24 Hours: Temp Pulse Resp BP Pulse Ox O2 Del Method 98.0 F 54 L 15 124/68 97 Room Air 08/25/23 07:47 08/25/23 04:00 08/25/23 04:00 08/25/23 04:00 08/24/23 22:00 08/25/23 06:57 Laboratory Results - last 24 hr 08/24/23 02:50: Triglycerides 236 H, Cholesterol 176, LDL Cholesterol Direct 75.98 L, VLDL Cholesterol 47 H, HDL Cholesterol 52, Cholesterol/HDL Ratio 3.4 I & O for Last 24 hours: Intake & Output 08/22/23 08/23/23 08/24/23 08/25/23 11:59 11:59 11:59 11:59 Intake Total 1096 / 1096 Output Total 0 / 0 0 / 0 Balance 0 / 0 1096 / 1096 Weight 188 lb 1.6 oz 185 lb 9.6 oz *Routine Respiratory Exam Respiratory: Present CTA bilaterally *Routine Cardiovascular Exam Cardiovascular: Present RRR *Routine Extremities Exam Comments: Swelling and tenderness noted in the area of the bicep to upper forearm area. Radial pulses of the left arm good and strong. Progress Note: A&P Assessment and plan (1) Nonsustained ventricular tachycardia: Status: Acute (2) Tachyarrhythmia: Status: Resolved (3) Elevated troponin: Status: Resolved (4) Hypotension: Status: Acute (5) Atrial fibrillation with RVR: Status: Acute (6) Tobacco use: Status: Chronic Assessment and Plan Assessment and Plan for All Diagnoses:: 1. Tachyarrhythmias (SVT, A. fib with RVR and nonsustained V. Tach) now in NSR after IV beta nataly and amiodarone with cardioversion -Loaded with IV amiodarone for 24 hours and now on oral amiodarone 4 mg twice daily -Add oral anticoagulation, despite a [id number] score of 1, due to cardioversion -Echocardiogram shows EF of the low normal of around 50%. Likely due to sustained tachtarrhythmia, will repeat limited echo in the near future -Patient has been referred to Dr. Capps at [facility] in [facility]. She has an appointment with him next week. -Discontinue aspirin 2. Hyperlipidemia -LDL 76 with triglycerides 236 and HDL 52. 3. Tobacco use -Cessation recommended 4. Left upper extremity swelling likely related to IV infiltration but will obtain ultrasound to rule out venous thrombus. Stable from a cardiac standpoint for discharge home. Await results of left upper extremity ultrasound. Home medications recommendations: Amiodarone 4 mg twice daily Bisoprolol 5 mg daily Eliquis 5 mg twice daily Lipitor 10 mg daily Recommend discontinue aspirin in light of Eliquis use. Follow-up with Dr. Capps next week. Follow-up in our office in 2 weeks
--- NOTE | 2023-08-25 09:39 | HMH.PHAINT1 ---
Pharmacy Intervention Comments: DISCHARGE MEDICATION COUNSELING WAS PROVIDED TO PATIENT AND FAMILY MEMBER. THE FOLLOWING MEDICATIONS WERE DISCUSSED IN REGARDS TO INDICATIONS, POSSIBLE SIDE EFFECTS, AND MISSED DOSES : ELIQUIS, AMIODARONE, AND THE DOSE CHANGE ON BISOPROLOL. PATIENT AND FAMILY MEMBER VERBALIZED UNDERSTANDING WITH NO FURTHER QUESTIONS.
[2023-08-25 10:00] VITALS: BP 108/70; PULSE 51; RESP 9
--- NOTE | 2023-08-25 11:36 | P.DS_ITS ---
General Admission date:: 08/24/23 Discharge date: 08/25/23 HPI HPI HPI: Ms. Braxton is a 47-year-old patient of Dr. [facility] with a history of rheumatoid arthritis, hyperlipidemia, tobacco use disorder, migraines, and SVT who presented to [facility] emergency room due to sustained rapid heart rate and shortness of breath. Patient states she was sitting on the couch after completing dinner and cleaning up the kitchen when she felt her heart rate away. She consent times control this with her breathing. When it did not cease and the shortness of breath continued she p resented to the emergency room for evaluation. She did have an episode in February after which she had a cardiac workup with a cardiac cath which she says was negative. She is followed with cardiology since then. She has remained on bisoprolol. Following this the ER documentation: Medical Decision Narrative: In summary patient is a 47-year-old female with past medical history described above presents emergency department for evaluation of tachycardia and chest pain. Patient has extreme tachycardia heart rate 199 upon arrival, SVT. Patient's blood pressure is acceptable and is mentating appropriately. Patient underwent Valsalva maneuver at bedside with leg raise concordantly and was unsuccessful. Patient was placed on the ZOLL. Differential includes ACS, primary conduction abnormality, among others. Workup will be conducted with hematologic labs, CTA chest, EKG, troponin, chest x-ray, TSH, free T4. Patient's blood pressure was normal upon arrival, given no hemodynamic instability initially patient underwent attempted chemical cardioversion with 6 mg of adenosine at bedside. Rhythm went from SVT to atrial fibrillation to unsustained V. tach, back into supraventricular tachycardia. This is not what I would expect with adenosine administration in the setting of SVT. Given this the case was discussed with Dr. Quintero who recommends multiple doses of push dose metoprolol given that patient is already on bisoprolol at baseline in an effort to break the supraventricular tachycardia. Should hypotension arise continue giving metoprolol until SVT breaks and administer push dose Sulaiman- Synephrine. Push dose Sulaiman-Synephrine was fashioned at bedside and patient ultimately received multiple doses of push dose metoprolol with push dose phenylephrine for maintenance of mean arterial pressures greater than 60. After multiple rounds these were unsuccessful and patient had persistent low blood pressure with SVT heart rate between 190 and 200. Given this patient underwent electrical cardioversion facilitated by etomidate with success and improvement of hypotension although blood pressures remained soft had acceptable mean arterial pressures. Patient was loaded with amiodarone and subsequently started on amiodarone drip. Dr. Quintero recommends admission for cardiac monitoring overnight and evaluation in the morning. CTA informally visualized by me, no obvious dissection, should there be no dissection patient will be appropriate for admission at this institution. Formal CTA read pending at time of transition of care to the oncoming physician, Dr. Kirby. Kofi CERNA: I assumed care of the patient at the time of handoff from the prior provider. On reassessment, my interpretation of cafeteria monitor, patient is now normotensive with blood pressure 90/65, in sinus rhythm with rates below 100. Repeat EKG interpreted by me at 2342, sinus rhythm with ventricular rate of 70, no ST elevations. No evidence of arrhythmia. Patient remains on the amiodarone drip. CTA chest was independently interpreted by me and shows no evidence of aortic dissection or pulmonary embolism. Given this, patient was deemed appropriate for admission. Interactive discussion was had with Dr. Diaz on- call for Dr. Epps who accepted the patient. The above is per ER notes. This a.m. patient remains in sinus rhythm. Blood pressure remains on the low side. She describes her chest as sore. She denies shortness of breath. She has had no nausea and no vomiting or any upper respiratory symptoms. She does not have a cough. She continues to smoke and is down to 4 cigarettes a day. She has been taking Chantix. 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 She works 10 to 12-hour days. To note also troponin I's have gone from 0.019-0 0.04-0.16. TSH is normal at 1.5. CBC does show elevated white blood cell count of 12,000 with normal differentials. CTA of the chest reveals the following: MPRESSION: 1. No acute intrathoracic process. 2. Specifically, no acute pulmonary emboli. 3. No aortic aneurysm or dissection. 4. Clear lungs. 5. Remote calcified granulomatous disease. Hospital Course Hospital Course Hospital Course: The patient was admitted and started on an amiodarone drip. Cardiology was c onsulted. She had an IV beta-nataly along with amiodarone and cardioversion and returned to normal sinus rhythm. Cardiology wanted her started on oral amiodarone and added oral anticoagulation due to cardioversion. They checked an echo and wanted her to be referred to electrophysiology as an outpatient. Her echo showed an EF of low normal around 50%. The patient did well throughout the night. She did begin having some pain in her left arm and her IV had to be moved to the right side. She did develop some swelling and pain in the left arm. She denied any chest pain or shortness of breath. A left upper extremity ultrasound was ordered and showed superficial thrombophlebitis. She was stable to be discharged home and will need to see EP at [place] on 08/31. She will have to remain off work until 09/03/2023. Exam Data for Last 24 hours Vital signs and Labs for Last 24 Hours: Temp Pulse Resp BP Pulse Ox O2 Del Method 98.0 F 51 L 9 L 108/70 L 96 Room Air 08/25/23 07:47 08/25/23 10:00 08/25/23 10:00 08/25/23 10:00 08/25/23 08:00 08/25/23 11:00 Laboratory Results - last 24 hr 08/24/23 02:50: Triglycerides 236 H, Cholesterol 176, LDL Cholesterol Direct 75.98 L, VLDL Cholesterol 47 H, HDL Cholesterol 52, Cholesterol/HDL Ratio 3.4 I & O for Last 24 hours: Intake & Output 08/22/23 08/23/23 08/24/23 08/25/23 11:59 11:59 11:59 11:59 Intake Total 1336 / 1336 Output Total 0 / 0 0 / 0 Balance 0 / 0 1336 / 1336 Weight 188 lb 1.6 oz 185 lb 9.6 oz Narrative: *Routine HEENT Exam Head: Present normocephalic and atraumatic Eye: Present PERRL; Absent conjunctival icterus, scleral injection or conjunctivae pink ENT: Present mucous membranes moist and oropharynx clear *Routine Respiratory Exam Respiratory: Present CTA bilaterally (Anteriorly and posteriorly) *Routine Cardiovascular Exam Cardiovascular: Present RRR and murmur *Routine Abdominal Exam Abdominal: Present soft and normoactive bowel sounds; Absent tenderness, distended or guarding *Routine Rectal Exam Rectal:: deferred *Routine Genitalia Exam Genitalia:: deferred *Routine Extremities Exam Extremities: Present full ROM and pulses intact; Absent edema or calf tenderness *Routine Neurological Exam Neurological: Present alert and oriented X3 Results Data Completed and Pending Labs on day of discharge: Labs from last 24 hours 08/24/23 02:50 Triglycerides 236 H Cholesterol 176 LDL Cholesterol Direct 75.98 L VLDL Cholesterol 47 H HDL Cholesterol 52 Cholesterol/HDL Ratio 3.4 DS: Diagnosis Discharge Diagnosis (1) Nonsustained ventricular tachycardia: Status: Acute Code(s): I47.29 - Other ventricular tachycardia (2) Tachyarrhythmia: Status: Resolved Code(s): R00.0 - Tachycardia, unspecified (3) Elevated troponin: Status: Resolved Code(s): R79.89 - Other specified abnormal findings of blood chemistry (4) Hypotension: Status: Acute Code(s): I95.9 - Hypotension, unspecified Qualifiers: Hypotension type: hypotension due to drug Qualified Code(s): I95.2 - Hypotension due to drugs (5) Atrial fibrillation with RVR: Status: Acute Code(s): I48.91 - Unspecified atrial fibrillation (6) Tobacco use: Status: Chronic Code(s): Z72.0 - Tobacco use Meds Home Medications and Allergies Home Medications Medication Instructions Recorded Confirmed Type atorvastatin 10 mg tablet (Lipitor) 10 mg PO DAILY Cholesterol 05/10/19 08/24/23 History varenicline 1 mg tablet 1 mg PO BID SMOKING CESSATION 04/08/20 08/24/23 History adalimumab 40 mg/0.8 mL 40 mg SQ DIRECTED PRN 03/04/22 08/24/23 History subcutaneous pen kit Rheumatoid Arthritis fluticasone propionate 50 1 - 2 spr NS DAILY Allergy Symptoms 08/24/23 08/24/23 History mcg/actuation nasal spray,suspension amiodarone 400 mg tablet 400 mg PO BID 1 month #60 tabs 08/25/23 Rx apixaban 5 mg tablet (Eliquis) 5 mg PO BID #60 tabs 08/25/23 Rx bisoprolol fumarate 5 mg tablet 5 mg PO DAILY #30 tabs 08/25/23 Rx New Prescriptions to Start Prescriptions: amiodarone [place],Nain apixaban [Eliquis] [place],Nain bisoprolol fumarate [place],Nain Allergies Allergy/AdvReac Type Severity Reaction Status Date / Time No Known Allergies Allergy Verified 08/02/23 09:40 Discharge Plan Disposition Patient Disposition: Home, Self-Care Condition: Good Discharge Order Discharge Orders: Discharge Order (Routine); Ordered 08/25/23 Ordered By: Nain Garcia Follow up Plan Follow up with: Gricelda Epps MD [Primary Care Provider] - 09/23/23 2:45 pm Tai Nieto PA [Physician Dope Pourer] - 09/08/23 9:00 am Marty Capps MD [Referring] - 09/01/23 11:00 am Prescriptions/Medication Reconciliation: New bisoprolol fumarate 5 mg tablet 5 mg PO DAILY Qty: 30 0RF Eliquis 5 mg tablet 5 mg PO BID Qty: 60 0RF amiodarone 400 mg tablet 400 mg PO BID 30 Days Qty: 60 0RF Continued atorvastatin [Lipitor] 10 mg tablet 10 mg PO DAILY varenicline 1 MG tablet 1 mg PO BID adalimumab 40 mg/0.8 mL pen injector kit 40 mg SQ DIRECTED PRN (Reason: Rheumatoid Arthritis) Rx Instructions: pt takes biweekly and is due at the end of this week (08/28/23) fluticasone propionate 120 SPR/BOT spray,suspension 1 - 2 spr NS DAILY Discontinued bisoprolol fumarate 10 mg tablet 10 mg PO DAILY Qty: 90 3RF ibuprofen 600 MG tablet 600 mg PO Q6HP PRN (Reason: Mild Pain) Qty: 30 0RF aspirin 81 mg capsule 81 mg PO DAILY Problem Reconciliation Problems Reviewed?: Yes Patient Discharge Instructions ACTIVITY: Limited activity DIET: continue same diet Patient Instructions: Paroxysmal Supraventricular Tachycardia, DI for Paroxysmal Supraventricular Tachycardia Providers Primary Care Provider: Gricelda Epps Admit Provider: Nain Garcia Attending Provider: Nain Garcia
--- NOTE | 2023-08-26 12:53 | SW/DCPLANNER ---
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 No further assistance needed at this time.
== END 2023-08-25 11:10 | disposition home or self-care (01) | DRG 310 ==
LOC: ER 08-24 00:15 → 2ND 08-24 01:29
PROVIDERS: Physician Assistant; Admitting Provider Family Medicine; Emergency Provider Emergency Medicine; PCP Family Medicine; Visit Provider Family Medicine
DX: I47.10 Supraventricular tachycardia, unspecified (principal); F17.210 Nicotine dependence, cigarettes, uncomplicated; I95.2 Hypotension due to drugs; I48.0 Paroxysmal atrial fibrillation; E78.2 Mixed hyperlipidemia; M06.9 Rheumatoid arthritis, unspecified; Z71.6 Tobacco abuse counseling
CPT/HCPCS: 36415; 71275; 80053; 80061; 83735; 84439; 84443; 84484; 85025; 93005; 93308; 93971; 99285; J0282; J7060; Q9967

== ENCOUNTER 2023-09-23 15:21 | Outpatient (CLI) | payer BC, SELFPAY ==
[2023-09-23 16:00] LABS: Basophils # 0.1 K/mm3 (0-0.2); Basophils % 1.3 % (0.1-2.0); Eosinophils # 0.3 K/mm3 (0.0-0.4); Eosinophils % 3.7 % (0.1-12.0); Hemoglobin 14.1 g/dL (12.2-16.2); Lymphocytes % 43.4 % (10-50); Mean Corpuscular HGB Conc 32.1 g/dL (31.8-35.4); Mean Corpuscular Hemoglobin 31.4 pg (27.0-31.2); Mean Corpuscular Volume 97.9 fl (81-99); Monocytes # 0.4 K/mm3 (0.1-1.0); Monocytes % 5.9 % (1.7-9.3); Neutrophils # 3.1 K/mm3 (1.8-7.8); Neutrophils % 45.7 % (37.0-80.0); Platelet Count 201 K/mm3 (142-424); Red Cell Distribution Width 13.5 % (11.5-17.5); White Blood Count 6.8 K/mm3 (4.8-10.8)
[2023-09-23 16:32] LABS: Erythrocyte Sedimentation Rate 3 mm/hr (0-20)
[2023-09-23 17:02] LABS: Alanine Aminotransferase 22 U/L (12-78); Albumin Level 4.2 g/dl (3.5-5.0); Albumin/Globulin Ratio 1.5 (1.1-1.8); Alkaline Phosphatase 64 U/L (38-126); Anion Gap 12.6 mEq/L (5-15); Aspartate Amino Transferase 25 U/L (14-36); Bilirubin,Total 0.4 mg/dl (0.2-1.3); Blood Urea Nitrogen 19 mg/dl (7-17); Calcium 9.7 mg/dl (8.4-10.2); Carbon Dioxide 27 mmol/L (22.0-30.0); Chloride 105 mmol/L (98-107); Estimated Glomerular Filt Rate 90 ml/min (>60); GFR (African American) 109 ML/MIN (>60); Globulin 2.8 g/dL (1.3-3.2); Glucose 87 mg/dl (74-100); Potassium 4.6 mmoL/L (3.5-5.1); Sodium 140 mmol/L (136-145)
[2023-09-23 17:07] LABS: C-Reactive Protein 1.9 mg/L (0-4)
[2023-09-23 17:30] LABS: Thyroid Stimulating Hormone 1.94 uIU/mL (0.465-4.68)
[2023-09-25 18:12] LABS: QuantiFERON-TB Gold Plus Negative (Negative)
== END 2023-09-23 23:59 | disposition home or self-care (01) ==
LOC: LAB 15:22
PROVIDERS: Internal Medicine Clinical Cardiac Electrophysiology; Physician Assistant; PCP Family Medicine; Visit Provider Nurse Practitioner
DX: I47.10 Supraventricular tachycardia, unspecified (principal); H20.9 Unspecified iridocyclitis; M05.9 Rheumatoid arthritis with rheumatoid factor, unspecified; R53.83 Other fatigue
CPT/HCPCS: 36415; 80053; 84443; 85025; 85651; 86140; 86480

== ENCOUNTER 2024-01-06 09:26 | Outpatient (CLI) | payer BC, SELFPAY ==
--- NOTE | 2024-01-06 09:29 | MM_ITS ---
PROCEDURE INFORMATION: Exam: MG Bilateral Screening 3D Mammography Exam date and time: 01/06/2024 9:30 AM Age: 48 years old Clinical indication: Screening mammogram TECHNIQUE: Imaging protocol: Bilateral Screening tomosynthesis and 2D mammography including computer-aided detection (CAD) when performed. COMPARISON: 1. MG MM DIG SCREENING MAMM BI W/CAD 03/03/2022 3:34 PM 2. MG MM DIG SCREENING MAMM BI W/CAD 04/22/2020 9:34 AM 3. MG MM DIG SCREENING MAMM BI W/CAD 04/20/2019 1:50 PM 4. MG DXLT MM Dig mamm DX unilat LT CAD 03/31/2018 1:50 PM FINDINGS: MAMMOGRAPHY: Breast composition: The breast is heterogeneously dense, which may obscure small masses. Mass: None. Architectural distortion: No new or suspicious architectural distortion. Calcifications: No new or suspicious calcifications are present Asymmetric density: No new or suspicious asymmetric density is present Skin thickening: None. Axillary adenopathy: None. IMPRESSION: No mammographic evidence of malignancy. Recommend annual screening mammography unless otherwise clinically indicated. ASSESSMENT: BI-RADS category 1: Negative.
--- NOTE | 2024-01-06 10:13 | US_ITS ---
FINAL REPORT CLINICAL HISTORY: THYROMEGALY COMPARISON: None FINDINGS: Sonographic images of the thyroid gland were obtained. The right thyroid lobe measures 55 mm in length. The left thyroid lobe measures 54 mm in length. The thyroid isthmus measures 4 mm. The echogenicity is normal. On the right is a 16 mm solid hypoechoic taller than wide TR 5 nodule. Largest nodule on the left is a 12 mm solid hypoechoic TR 4 nodule. IMPRESSION: Right TR 5 nodule as described. Recommend ultrasound-guided biopsy per TI-RADS criteria. Reviewed, Interpreted and Dictated by Anthony Paredes III, MD Transcribed by Elissa Arana Authenticated and [facility]
[2024-01-06 10:49] LABS: Hematocrit 43.4 % (37.0-47.0); Hemoglobin 14.1 g/dL (12.2-16.2); Mean Corpuscular HGB Conc 32.6 g/dL (31.8-35.4); Mean Corpuscular Hemoglobin 31.4 pg (27.0-31.2); Mean Corpuscular Volume 96.3 fl (81-99); Platelet Count 210 K/mm3 (142-424); Red Blood Count 4.51 M/mm3 (4.20-5.40); Red Cell Distribution Width 13.2 % (11.5-17.5); White Blood Count 6.1 K/mm3 (4.8-10.8)
[2024-01-06 11:39] LABS: Erythrocyte Sedimentation Rate 7 mm/hr (0-20)
[2024-01-06 11:44] LABS: Albumin Level 4.5 g/dl (3.5-5.0); Chloride 107 mmol/L (98-107); Potassium 4.7 mmoL/L (3.5-5.1); Sodium 138 mmol/L (136-145)
[2024-01-06 11:46] LABS: Blood Urea Nitrogen 12 mg/dl (7-17); Estimated Glomerular Filt Rate 107 ml/min (>60); GFR (African American) 129 ML/MIN (>60)
[2024-01-06 11:47] LABS: Alanine Aminotransferase 35 U/L (12-78); Albumin/Globulin Ratio 1.6 (1.1-1.8); Alkaline Phosphatase 78 U/L (38-126); Anion Gap 6.7 mEq/L (5-15); Aspartate Amino Transferase 30 U/L (14-36); Bilirubin,Total 0.7 mg/dl (0.2-1.3); Calcium 9.3 mg/dl (8.4-10.2); Carbon Dioxide 29 mmol/L (22.0-30.0); Globulin 2.9 g/dL (1.3-3.2); Glucose 93 mg/dl (74-100); Total Protein,Serum 7.4 g/dl (6.3-8.2)
[2024-01-06 11:53] LABS: C-Reactive Protein 1.9 mg/L (0-4)
[2024-01-08 18:11] LABS: QuantiFERON-TB Gold Plus Negative (Negative)
== END 2024-01-06 23:59 | disposition home or self-care (01) ==
PROVIDERS: Internal Medicine; PCP Family Medicine; Visit Provider Family Medicine
DX: E01.0 Iodine-deficiency related diffuse (endemic) goiter (principal); N60.19 Diffuse cystic mastopathy of unspecified breast; M06.9 Rheumatoid arthritis, unspecified; R53.83 Other fatigue; Z79.899 Other long term (current) drug therapy
CPT/HCPCS: 36415; 76536; 77063; 77067; 80053; 85014; 85018; 85048; 85049; 85651; 86140; 86480

== ENCOUNTER 2024-01-17 08:50 | Outpatient (CLI) | payer BC, SELFPAY ==
--- NOTE | 2024-01-17 08:54 | US_ITS ---
FINAL REPORT CLINICAL HISTORY: R THYROID NODULE -- RT THYROID FNA -- JAY JAY DENG FINDINGS: Ultrasound guided thyroid biopsy. HISTORY: Right thyroid mass. Attending radiologist: Dr. Guaman Physician Mathematical Engineer: Jay Jay Shukla PA-C PROCEDURE: After informed consent was obtained and a time-out was performed, the patient was prepped and draped in usual sterile fashion over the left neck. Utilizing local anesthesia and sterile technique with a 25-gauge needle, access to lesion was obtained. A total of 4 passes were made under direct ultrasound guidance. The patient received no conscious sedation. The patient tolerated procedure well and left the department in good condition. IMPRESSION: Status post ultrasound guided biopsy of thyroid without immediate complication. Films reviewed, interpreted and dictated by Dr. Guaman. Transcribed by Jay Jay Shukla PA-C. Reviewed, Interpreted and Dictated by Dragan Guaman MD Transcribed by SOWMYA Ballesteros Authenticated and [facility]
== END 2024-01-17 23:59 | disposition home or self-care (01) ==
LOC: RAD 08:50
PROVIDERS: PCP Physician Assistant; Visit Provider Physician Assistant
DX: E04.1 Nontoxic single thyroid nodule (principal)
CPT/HCPCS: 76942

== ENCOUNTER 2024-01-22 09:55 | Emergency (ER) | payer BC, SELFPAY ==
[2024-01-22 09:57] VITALS: BP 152/94; PULSE 78; RESP 18; TEMP 36.7; O2SAT 98; BMI 31.6
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
[2024-01-22 10:03] VITALS: BP 152/94; PULSE 84; O2SAT 95
--- NOTE | 2024-01-22 10:05 | PC.NURSE ---
PT TO XR
--- NOTE | 2024-01-22 10:06 | PC.NURSE ---
DR VENEGAS AT BEDSIDE
--- NOTE | 2024-01-22 10:11 | XR_ITS ---
PROCEDURE INFORMATION: Exam: XR Right Knee Exam date and time: 01/22/2024 10:07 AM Age: 48 years old Clinical indication: Injury or trauma; Fall; Blunt trauma; Knee; Right; Additional info: Fall, right knee pain TECHNIQUE: Imaging protocol: Radiologic exam of the right knee. Views: 3 views. COMPARISON: CR [id number] XR knee RT 3V 11/25/2017 1:59 PM FINDINGS: Bones/joints: Normal. No fracture or dislocation. Soft tissues: Normal. IMPRESSION: No acute findings.
[2024-01-22 10:33] VITALS: BP 154/85; PULSE 74; O2SAT 99
[2024-01-22 11:00] VITALS: BP 134/80; PULSE 71; O2SAT 97
--- NOTE | 2024-01-22 11:20 | PC.NURSE ---
DR VENEGAS AT BEDSIDE TO UPDATE PT
[2024-01-22 11:41] VITALS: BP 129/83; PULSE 76; RESP 16; TEMP 36.7; O2SAT 98
== END 2024-01-22 11:52 | disposition home or self-care (01) ==
PROVIDERS: Emergency Provider Student in an Organized Health Care Education/Training Program; PCP Physician Assistant
DX: S89.91XA Unspecified injury of right lower leg, initial encounter (principal); M06.9 Rheumatoid arthritis, unspecified; Z87.891 Personal history of nicotine dependence; W01.0XXA Fall on same level from slipping, tripping and stumbling without subsequent striking against object, initial encounter; Y92.9 Unspecified place or not applicable
CPT/HCPCS: 73562; 99283

== ENCOUNTER 2024-04-17 11:45 | Outpatient (CLI) | payer BC, SELFPAY ==
--- OUTSIDE RECORDS SUMMARY | 2024-04-17 11:49 | XMS_ITS | Encounter Summary ---
[facility] Address [address] [place] [address] Care Team Providers Care Social Organization Professor Name Role Phone Kerri Esquivel Primary Care Provider [phone] Encounter Details Date Type Department Care Team (Late st Contact Info) Description 03/13/2024 Telephone [facility] [address] [facility] [address] [place] [address] Sean Harris DO [address] [facility] [address] [place], [place] [id number] Social History Tobacco Use Types Packs/Day Years Used Date Smoking Tobacco: Every Day Cigarettes Smokeless Tobacco: Never Alcohol Use Standard Drinks/Week Comments Yes 0 (1 standard drink = 0.6 oz pur e alcohol) MODERATE Abuse Screen Answer Date Recorded Unsafe at Home or Work/School Not on file Feels Threatened by Someone? Not on file 01/2023 Does Anyone Keep You from Co ntacting Others or Doint Things Outside the Home? Not on file 03/08/2023 Physical Sign of Abuse Present Not on file 1 Housing Stability Answer Date Recorded Current Living Arrangements Not on file 01/2023 Potentially Unsafe Housing Conditions Not on esequiel e 03/08/2023 Family and Community Support Answer Noah e Recorded Help with Day-to-Day Activities Not on file 03/08/2023 Lonely or Isolated Not on file 03/08/2023 Employment Answer Date Recorded Do you want help finding or keeping work or a brittany b? Not on file 03/08/2023 Disabilities Answer Date Recorded Concentrating, Remembering, or Making Decisions Difficulty Not on file 03/08/2023 Doing Errands Independently Difficulty Not on fi le 03/08/2023 Education Answer Date Recorded Help with school or training? Not on file Preferred Language Not on file 03/08/2023 Comments Unknown Sex and Gender Information Value Date Recorded Sex Assigned at Not on file Legal Sex Female 9:58 AM EDT Gender Identity Not on file Sexual Orientation Not on file documented as of this encounter Miscellaneous Notes * Telephone Encounter - Sd Pitts PharmD - 03/13/2024 10:04 AM EDT Prior authorization initiated by [facility]. Update will be provided when a determination has been received. Medication: Humira 40mg/0.4ml PA Submission Method: CMM Case Number/CMM Mantilla: [id number] * Telephone Encounter - [place]i Stafford RegSched Rep - 03/13/2024 9:21 AM EDT Images from the original note were not included. documented in this encounter Plan of Treatment Upcoming Encounters Date Type Department Care Team (Late st Contact Info) Description 09/04/2024 10:45 AM EDT Office Visit [facility] [address] [facility] [address] [place] [address] Sean Harris DO [address] [facility] [address] [place] [address] documented as of this encounter Visit Diagnoses Not on filedocumented in this encounter Care Teams Social Organization Professor Relationship Specialty Start Date End Date Kerri Esquivel PA [address] [place] [address] [facility] [address] [place] [id number] PCP - General Physician Offset Pressman 02/24/24 documented as of this encounter
--- OUTSIDE RECORDS SUMMARY | 2024-04-17 11:49 | XMS_ITS ---
Author Organization [facility] Address [address] [facility] [address] [place] [id number] Care Team Providers Care Process Expert Name Role Phone Suzette Epps Primary Care Provider [phone] ALLERGIES No Known Allergies REASON FOR VISIT 4 month f/u MEDICATIONS Medication SIG (Take, Route, Frequency, Duration) Notes Start Date End Date Status Meloxicam 15 MG 1 tablet Orally Once a day for 30 day(s) 04/17/2024 Active Medrol 4 MG as directed orally d aily for 6 days 04/17/2024 Active Fluticasone Propionate 50 MCG/ACT USE DIRECTED IN EACH NOSTRIL ONCE DAILY for 30 Active Atorvastatin Calcium 10 MG Take 1 tablet by mouth once daily for 90 days Active Temazepam 15 MG 1 cap(s) orally once a day prn (at bedtime) 01/07/2022 Active Humira 20 MG/0.2ML as directed subcutan eously every other week Active Chantix 1 MG as directed Orally t wice a day Active SOCIAL HISTORY Tobacco Use: Social History Observation Description Date Details (start date - stop date) Current Smoker 02/10/1995 - NA Sex Assigned At : Social History Observation Description Sex Assigned At Unknown CURRENT TOBACCO USE: Question Answer Notes Are you a: current smoker When did you start smoking? 02/10/1995 How often do you smoke cigarettes? every day How soon after you wake up d o you smoke your first cigarette? after 60 min How many cigarettes a day do you smoke? 6-10 Are you interested in quitting? Ready to quit Quit Lu 1st 2024 VITAL SIGNS Weight 193.8 lbs 04/17/2024 Blood pressure systolic 124 mm Hg 04/17/20 24 Blood pressure diastolic 78 mm Hg 024 Heart Rate 74 /min 04/17/2024 Height 65.5 in 04/17/2024 BMI 31.76 kg/m2 04/17/2024 Encounters Encounter Location Date Provider Diagnosis [facility] [address] [facility] [address] [facility] [address] [place] [id number] 04/17/2024 Suzette Hayden [place] Left foot pain M79.6 72 and Mixed hyperlipidemia E78.2 ASSESSMENTS Encounter Date Diagnosis Assessment Notes Treatment Notes Treatment Clinical Notes 04/17/2024 Left foot pain (ICD-10 - M79.672) Night brace suggested 04/17/2024 Mixed hyperlipidemia (ICD-10 - E78.2) PLAN OF TREATMENT Medication Medication Name Sig Start Date Stop Date Notes Meloxicam 15 MG 1 tablet Orally Once a day for 30 day(s) 1 06/17/2023 Medrol 4 MG as directed orally daily for 6 days 04/17/2024 Treatment Notes Assessment Notes Left foot pain Night brace suggeste d Pending Test Test Name Order Date X ray : Foot, left 04/17/2024 H-CBC 04/17/2024 H-Lipid Panel 04/17/2024 H-CMP 04/17/2024 Next Appt Details Follow Up: 2 Weeks, Reason: Provider Name:Suzette Hayden Mercedes er, 05/04/2024 03:45:00 PM, [address] [facility] 36 [facility], [address], [place], [id number], Progress Notes * Examination Category Sub-Category Detail Notes General Examination HEENT: unremarkable Heart: RSR Lungs: clear to auscultatio n Extremities: no leg edema. Tender ness is at lateral aspects of the left heel. Not really plantar General Appearance: NAD Skin: normal, no rash Neurologic Exam: Intact, gait normal Neck: supple, no lymphaden opathy, thyroid slightly enlarged, symmetrically Oral cavity: no lesions, mucosa m oist and WNL, no erythema Peripheral pulses: normal Chest: normal shape and exp ansion History and Physical Notes * HPI (History of Present Illness) Category Sub-Category Detail Notes Cardiology Short of Breath Chest Pain Palpitations Dizziness
--- OUTSIDE RECORDS SUMMARY | 2024-04-17 11:49 | XMS_ITS ---
Author Organization [place] Address [address] [facility] 36 [facility] [address] [place] [id number] Care Team Providers Care New Car Inspector Name Role Phone Suzette Epps Primary Care Provider Kerri Esquivel [phone] REASON FOR VISIT Test results Encounters Encounter Location Date Provider Diagnosis [place] [address] [facility] 36 [facility] [address] [place] [id number] 02/09/2024 Kerri Esquivel PLAN OF TREATMENT Next Appt Details Provider Name:Suzette Long er, 05/04/2024 03:45:00 PM, [address] [facility] 36 [facility], [address], [place], [id number],
--- OUTSIDE RECORDS SUMMARY | 2024-04-17 11:49 | XMS_ITS | Patient Health Record ---
[facility] Address [address] [place] [id number] Care Team Providers Care Granulizing Machine Operator Name Role Phone Suzette Epps Primary Care Provider Kerri Esquivel Unavailable [phone] ALLERGIES No Known Allergies RESULTS Component Value Reference Range Notes Ultrasound guided biopsy Reviewed date:01/28/2024 07:57:40 AM Interpretation: Performing Lab: Notes/Report: P-TSH Reviewed date:02/09/2024 09:02:26 AM Interpretation: Performing Lab: Notes/Report: Test performed by [facility] [address] [place] [address] , [place] [address] Bebeto Munoz MD, Designer CLIA: [id number] TSH 1.23 0.43-5.25 mU/L P-Thyroid Antibody Panel (TA BS) Reviewed date:02/09/2024 09:02:26 AM Interpretation: Performing Lab: Notes/Report: Test performed by [facility] [address] [place] [address] , [place] [address] Bebeto Munoz MD, Designer CLIA: [id number] Thyroid Peroxidase Antibody 13 <9-34 IU/mL An elevated Thyroid Peroxidase Antibody should not be used alone to make the diagnosis of autoimmune thyroid disease. A result of <34 IU/mL does not definitively rule out the possibility of autoimmune thyroid disease. Thyroglobulin Antibody 16.1 <10-115.0 IU/mL The test is performed by the Jhonny ECLIA methodology. Values obtained with different assay methods or kits cannot be directly compared. P-T4 Free (thyroxine) Reviewed date:02/09/2024 09:02:26 AM Interpretation: Performing Lab: Notes/Report: Test performed by [facility] [employer] [address] [place] [address] , [address], [place] [address] Bebeto Munoz MD, Designer CLIA: [id number] Thyroxine Free (free T4) 1.09 0.86-1.76 ng/dL ultrasound : thyroid Reviewed date:01/07/2024 09:27:36 AM Interpretation:recommend US guided biopsy Performing Lab: Notes/Report: recommend US guided biopsy Mammogram Reviewed date:01/14/2024 11:29:37 AM Interpretation:Negative, annual f/u Performing Lab: Notes/Report: Negative, annual f/u result Negative, annual f/u Cologuard Reviewed date:01/10/2024 03:03:45 PM Interpretation:Negative Performing Lab: Notes/Report: Negative Cologuard Negative H-Sed Rate Reviewed date:09/28/2023 10:50:00 AM Interpretation:Normal Performing Lab: Notes/Report: ESR 3 0-20 mm/hr H-CRP Reviewed date:09/28/2023 10:50:00 AM Interpretation:Normal Performing Lab: Notes/Report: CRP 1.9 0-4 mg/L H-CMP Reviewed date:09/28/2023 10:50:00 AM Interpretation:bun 19 Performing Lab: Notes/Report: NA 140 136-145 mmol/L K 4.6 3.5-5.1 mmoL/L CL 105 98-107 mmol/L CO2 27 22.0-30.0 mmol/L GAP 12.6 5-15 mEq/L BUN 19 7-17 mg/dl CREATT 0.70 0.52-1.04 mg/dl GFRAA 109 >60 ML/MIN EGFR 90 >60 ml/min GLU 87 74-100 mg/dl CA 9.7 8.4-10.2 mg/dl BILIT 0.4 0.2-1.3 mg/dl AST 25 14-36 U/L ALT 22 12-78 U/L TP 7.0 6.3-8.2 g/dl ALB 4.2 3.5-5.0 g/dl GLOB 2.8 1.3-3.2 g/dL AGRATIO 1.5 1.1-1.8 ALP 64 38-126 U/L H-Quantiferon TB Reviewed date:09/28/2023 10:50:00 AM Interpretation:Normal Performing Lab: Notes/Report: QTB.3 Comment . QuantiFERON-TB Gold Plus is a qualitative indirect test for M tuberculosis infection (including disease) and is intended for use in conjunction with risk assessment, radiography, and other medical and diagnostic evaluations. The QuantiFERON-TB Gold Plus result is determined by subtracting the Nil value from either TB antigen (Ag) value. The Mitogen tube serves as a control for the test. QTB.4 0.05 . IU/mL QTB.5.0 0.06 . IU/mL QTB.6 0.04 . IU/mL QTB.7 >10.00 . IU/mL QTB.8 Negative Negative No response to M tuberculosis antigens detected. Infection with M tuberculosis is unlikely, but high risk individuals should be considered for additional testing (ATS/IDSA/CDC Clinical Practice Guidelines, 2017). The reference range is an Antigen minus Nil result of <0.35 IU/mL. The specimen received for QuantiFERON testing was incubated by the ordering institution. Specific procedures outlined in our Directory of Services and in the package insert for the QuantiFERON Gold (In Tube) test must be followed to enable for proper stimulation of cells for the production of interferon gamma. Chemiluminescence immunoassay methodology Performed at: [facility] [id number] [employer] Curer: Vitaly Dunaway PhD, Phone: [phone] EMG/NCV Reviewed date:08/02/2023 09:00:18 AM Interpretation:carpal tunnel syndrome Performing Lab: Notes/Report: carpal tunnel syndrome P-Comprehensive Metabolic Pa ally (CMP) Reviewed date:07/02/2023 02:58:57 PM Interpretation: Normal Performing Lab: Notes/Report: Test performed by [facility] [address] [place] [address] , [address], [place] [address] Bebeto Munoz MD, Designer CLIA: [id number] Sodium 143 135-145 mEq/L Potassium 4.9 3.5-5.3 mEq/L Chloride 104 97-108 mEq/L CO2 28 22-32 mEq/L Glucose 91 65-99 mg/dL BUN 13 6-20 mg/dL Creatinine 0.58 0.50-1.00 mg/dL Calcium 9.8 8.6-10.4 mg/dL eGFR by Creatinine 112 >59 mL/min/1.73m2 Protein 7.2 6.0-8.3 g/dL Albumin 4.6 3.5-5.3 g/dL Alkaline Phosphatase 73 35-121 IU/L ALT (SGPT) 21 <5-47 IU/L AST (SGOT) 17 <5-40 IU/L Bilirubin, Total 0.3 <0.2-1.2 mg/dL A/G Ratio 1.8 1.1-2.5 mg/dL REASON FOR REFERRAL No Information MEDICATIONS Medication SIG (Take, Route, Frequency, Duration) [...] directed Orally t wice a day Active IMMUNIZATIONS Vaccine Route Administration Date Status Comme nts COVID 19 Moderna Unknown 10/11/2020 Administered COVID 19 Moderna Unknown 11/08/2020 Administered Tetanus Tdap-Adacel (over 7yrs) IM Intramuscular 05/30/2018 Administered SOCIAL HISTORY Tobacco Use: Social History Observation [...] interested in quitting? Ready to quit Quit November 29 2023 PROBLEMS Problem Type ICD Code Onset Dates Problem Status W/U Status Risk SNOMED Code Notes Problem Anxiety (F41.9) Active confirmed 515748 02 Problem NSTEMI (non-ST elevated myocardial infarction) (I21.4) Active confirmed 32698372 Problem Depression with anxiety (F41.8) Active confirmed 221169791 Problem Plantar fasciitis, left (M72.2) Active confirmed 96901588413825113 Problem Mixed hyperlipidemia (E78.2) Active confirmed 209231536 Problem Insomnia due to other mental disorder (F51.05) Active confirmed 81201688 Problem Mental disorder, not otherwise specified (F99) Active confirmed 12093164 Problem Pulmonary nodule (R91.1) Active confirmed 143773553 Problem Right thyroid nodule (E04.1) Active confirmed 935392078 Problem Chronic migraine (G43.709) Active confirmed 99181970 Problem Acquired hypothyroidism (E03.9) Active confirmed 005797075 Problem Tachycardia, paroxysmal (I47.9) Active confirmed 85280546 Problem Atrial fibrillation, unspecified type (I48.91) Active confirmed 29263117 Problem Vaginal bleeding (N93.9) Active confirmed 221175988 Problem Tobacco use disorder (F17.200) Active confirmed 362972721 Problem Thyromegaly (E01.0) Active confirmed 1279305 Problem Right hand paresthesia (R20.2) Active confirmed 526814999 Problem Osteopenia, unspecified location (M85.80) Active confirmed 306555751 Problem Fibrocystic breast disease (FCBD), unspecified laterality (N60.19) Active confirmed 44016124 Problem Allergic rhinitis, unspecified seasonality, unspecified trigger (J30.9) Active confirmed 09969016 Problem Iridocyclitis (H20.9) Active confirmed 06472632 Problem Rheumatoid arthritis with positive rheumatoid factor, involving unspecified site (M05.9) Active confirmed 072312240 Problem Anticoagulated (Z79.01) Active confirmed 306920697 VITAL SIGNS Heart Rate 74 /min 04/17/2024 Blood pressure diastolic 78 mm Hg 04/17/2024 Height 65.5 in 04/17/2024 Blood pressure systolic 124 mm Hg 04/17/2024 Weight 193.8 lbs 04/17/2024 BMI 31.76 kg/m2 04/17/2024 Encounters Encounter Location Date Provider Diagnosis [facility] [address] [place], [place] [id number] 07/01/2023 J Hayden Epps Tachycardia, paroxys mal I47.9 ; Tobacco use Z72.0 and Right hand paresthesia R20.2 [facility] [address] [place], [place] [id number] 08/02/2023 Suzette Epps [facility] [address] [place], [place] [id number] 08/25/2023 J Hayden Epps [facility] [address] [place], [place] [id number] 09/23/2023 J Hayden Epps Tachycardia, paroxys mal I47.9 and Anticoagulated Z79.01 [facility] [address] [place], [place] [id number] 09/28/2023 Suzette Epps [facility] [address] [place], [place] [id number] 10/29/2023 Suzette Epps [facility] [address] [place], [place] [id number] 11/03/2023 J Hayden Epps [facility] [address] [place], [place] [id number] 12/09/2023 Suzette Epps [facility] [address] [place], [place] [id number] 12/20/2023 Suzette Epps History of atrial fibrillation Z86.79 ; History of atrioventricular shashi ablation Z98.890 ; Thyromegaly E01.0 ; Fibrocystic breast disease (FCBD), unspecified laterality N60.19 and Screening for colon cancer Z12.11 [facility] [address] [place], [place] [id number] 01/07/2024 Kerri Esquivel Right thyroid nodule E04.1 [facility] [address] [place] [id number] 01/26/2024 Kerri Esquivel [facility] [address] [place], [place] [id number] 01/28/2024 Kerri Esquivel [facility] [address] [place], [place] [id number] 02/03/2024 Kerri Esquivel Acquired hypothyroid ism E03.9 ; Thyromegaly E01.0 and Right thyroid nodule E04.1 [facility] [address] [place] [id number] 02/09/2024 Kerri Esquivel [facility] [address] [place] [id number] 03/23/2024 Kerri Esquivel Plantar fasciitis, l eft M72.2 [facility] [address] [place], [place] [id number] 04/17/2024 J Hayden Epps Left foot pain M79.6 72 and Mixed hyperlipidemia E78.2 ASSESSMENTS Encounter Date Diagnosis Assessment Notes Treatment Notes Treatment Clinical Notes 07/01/2023 Tobacco use (ICD-10 - Z72.0) 07/01/2023 Tachycardia, paroxys mal (ICD-10 - I47.9) 09/23/2023 Tachycardia, paroxys mal (ICD-10 - I47.9) continue current therapy 09/23/2023 Anticoagulated (ICD- 10 - Z79.01) 12/20/2023 History of atrial fibrillation (ICD-10 - Z86.79) 12/20/2023 History of atrioventricular shashi ablation (ICD-10 - Z98.890) 01/07/2024 Right thyroid nodule (ICD-10 - E04.1) 03/23/2024 Plantar fasciitis, l eft (ICD-10 - M72.2) Gave handout for exercises to do at home, no going barefoot, can get good tennis shoes from [employer], [employer], [employer], [employer] insoles 04/17/2024 Left foot pain (ICD- 10 - M79.672) Night brace suggested 02/03/2024 Acquired hypothyroid ism (ICD-10 - E03.9) 12/20/2023 Thyromegaly (ICD-10 - E01.0) 07/01/2023 Right hand paresthes ia (ICD-10 - R20.2) 12/20/2023 Fibrocystic breast disease (FCBD), unspecified laterality (ICD-10 - N60.19) 02/03/2024 Thyromegaly (ICD-10 - E01.0) 04/17/2024 Mixed hyperlipidemia (ICD-10 - E78.2) 02/03/2024 Right thyroid nodule (ICD-10 - E04.1) 12/20/2023 Screening for colon cancer (ICD-10 - Z12.11) PLAN OF TREATMENT Pending Test Test Name Order Date X ray : Foot, left 05/07/2021 X ray : Foot, left 04/17/2024 H-CBC 04/17/2024 H-Lipid Panel 04/17/2024 H-CMP 04/17/2024 Next Appt Details Provider Name:Suzette Long er, 05/04/2024 03:45:00 PM, [address], [address], [place], [place], [id number], Insurance Providers Payer Name Payer Address Payer Phone Subscriber Number Group Number Insured Name Patient Relationship to Insured Coverage Start Date Coverage End Date [facility] [address] [place] [address] [id number] JUAN CARLOS SAHA Self - patient is the insured MEDICAL (GENERAL) HISTORY Medical History History ICD Code Migraines Anxiety Rheumatoid Arthritis Fibrocystic Breast Disease Hyperlipidemia Tobacco Abuse Moderna Covid Vaccine x1 Surgical History Surgery Date(Month/Year) RT Under Arm Gland Removal- Dr. Mendez rt 1985 Tissue Removal, Spider Bite- [facility] 019
--- OUTSIDE RECORDS SUMMARY | 2024-04-17 11:49 | XMS_ITS ---
[facility] Address [address] [place] [id number] Care Team Providers Care Mail Delivery Supervisor Name Role Phone Suzette Epps Primary Care Provider [phone] Kerri Esquivel Unavailable [phone] ALLERGIES No Known Allergies REASON FOR VISIT foot pain MEDICATIONS Medication SIG (Take, Route, Frequency, Duration) Notes Start Date End Date Status Temazepam 15 MG 1 cap(s) orally once a day prn (at bedtime) 01/07/2022 Active Humira 20 MG/0.2ML as directed subcutan eously every other week Active Atorvastatin Calcium 10 MG Take 1 tablet by mouth once daily for 90 days Active SOCIAL HISTORY Tobacco Use: Social History [...] W/U Status Risk SNOMED Code Notes Problem Plantar fasciitis, left (M72.2) Active confirmed [id number] VITAL SIGNS Weight 195.6 lbs 03/23/2024 Blood pressure systolic 120 mm Hg 03/23/20 24 Blood pressure diastolic 64 mm Hg 024 Heart Rate 83 /min 03/23/2024 Height 65.5 in 03/23/2024 BMI 32.05 kg/m2 03/23/2024 Encounters Encounter Location Date Provider Diagnosis [facility] [address] [place] [address] [address] [facility] [address] [place] [id number] 03/23/2024 Kerri Esquivel Plantar fasciitis, l eft M72.2 ASSESSMENTS Encounter Date Diagnosis Assessment Notes Treatment Notes Treatment Clinical Notes 03/23/2024 Plantar fasciitis, left (ICD-10 - M72.2) Gave handout for exercises to do at home, no going barefoot, can get good tennis shoes from [employer], [employer], [employer] insoles PLAN OF TREATMENT Treatment Notes Assessment Notes Plantar fasciitis, left Gave handout for exercises to do at home, no going barefoot, can get good tennis shoes from [employer], [employer], [employer] insoles Next Appt Details Follow Up: prn, Reason: Provider Name:Suzette Long , 05/04/2024 03:45:00 PM, [address] [place] [address] [address] [facility], [address], [place], [id number], Progress Notes * Examination Category Sub-Category Detail Notes Ankle / Foot Gait: favoring affecte d side Inspection: no swelling or ecchy mosis Palpation: no tenderness on mal leoli, there is ttp along the plantar fascia insertion to the calcaneous Ankle: left Range of motion: pain with dorsiflexi on and weight bearing History and Physical Notes * HPI (History of Present Illness) Category Sub-Category Detail Notes Ankle/Foot Pain Pt is here today with c/o having pain in the left foot. Pt sts it is mainly in the left heel. Pt sts it has been bothering her for 2 months, but has gradually gotten worse
--- OUTSIDE RECORDS SUMMARY | 2024-04-17 11:49 | XMS_ITS | Encounter Summary ---
[facility] Address [address] [place] [address] Care Team Providers Care Experimental Electronics Developer Name Role Phone Unavailable Primary Care Provider Unavailabl e Reason for Visit * Reason Onset Date Comments Med Refill 12/16/2023 Encounter Details Date Type Department Care Team (Late st Contact Info) Description 12/16/2023 Refill [facility] [address] [address] Sean Harris DO [address] [facility] [address] [place], [place] [id number] Rheumatoid arthritis, involving unspecified site, unspecified whether rheumatoid factor present (Primary Dx); High risk medication use; Fatigue, unspecified type Social History Tobacco Use Types Packs/Day Years Used Date Smoking Tobacco: Never Assessed Abuse Screen Answer Date Recorded Unsafe at [...] on file documented as of this encounter Progress Notes * Price Goff, Truant Officer - 12/16/2023 2:33 PM EDTAddended by: PRICE GOFF on: 12/16/2023 02:33 PM Modules accepted: Orders documented in this encounter Miscellaneous Notes * Telephone Encounter - Mago Be RegSched Rep - 12/16/2023 11:43 AM EDT PT IS CALLING TO GET A REFILL ON HER HUMIRA 2 PEN. MEDS WERE VERIFIED THROUGH [employer]. PT SAYS THE PHARMACY HAS SENT MULTIPLE FAX REQUESTS FOR THIS. THE PT IS COMPLETELY OUT OF THIS MEDICATION. PT ISALSO WANTING TO KNOW IF WE HAVE ANY SAMPLES WE CAN GIVE HER UNTIL THEY ARE ABLE TO DELIVER HER MEDS. PHARMACY ON FILE PHARMACY PHONE PHARMACY FAX# PT PHONE documented in this encounter Plan of Treatment Upcoming Encounters Date Type Department Care Team (Late st Contact Info) Description 09/04/2024 10:45 AM EDT Office Visit [facility] [address] [facility] [address] [place] [address] Sean Harris DO [address] [facility] [address] [place], [place] [id number] Scheduled Orders Name Type Priority Associated Diagnoses Orde r Schedule CBC (No Diff) Lab Routine Rheumatoid Arthritis, Involving Unspecified Site, Unspecified Whether Rheumatoid Factor Present High risk medication use Fatigue, unspecified type Expected: 09/04/2024 (Approximate), Expires: 12/15/2024 Comprehensive Metabolic Panel Lab Routine Rheumatoid arthritis, involving unspecified site, unspecified whether rheumatoid factor present High risk medication use Fatigue, unspecified type Expected: 09/04/2024 (Approximate), Expires: 12/15/2024 High Sensitivity CRP Lab Routine Rheumatoid arthritis, involving unspecified site, unspecified whether rheumatoid factor present High risk medication use Fatigue, unspecified type Expected: 09/04/2024 (Approximate), Expires: 12/15/2024 Sedimentation Rate Lab Routine Rheumatoid arthritis, involving unspecified site, unspecified whether rheumatoid factor present High risk medication use Fatigue, unspecified type Expected: 09/04/2024 (Approximate), Expires: 12/15/2024 QuantiFERON TB Gold Lab Routine Rheumatoid arthritis, involving unspecified site, unspecified whether rheumatoid factor present High risk medication use Fatigue, unspecified type Expected: 09/04/2024 (Approximate), Expires: 12/15/2024 documented as of this encounter Visit Diagnoses Diagnosis Rheumatoid arthritis, involving unspecified site, unspecified whether rheumatoid factor present- Primary High risk medication use Fatigue, unspecified type documented in this encounter
--- OUTSIDE RECORDS SUMMARY | 2024-04-17 11:49 | XMS_ITS | Encounter Summary ---
Author Organization [facility] Address [address] [place] [address] Care Team Providers Care Organ Grinder Name Role Phone Kerri Esquivel Primary Care Provider [phone] Reason for Visit * Reason Comments Follow-up Rheumatoid Arthritis Encounter Details Date Type Department Care Team (Late st Contact Info) Description 03/06/2024 10:15 AM EDT Office Visit [facility] 3000 [facility] [address] [place] [id number] Lien Wright APRN 3000 [facility] [address] [place], [place] [id number] Rheumatoid arthritis involving multiple sites with positive rheumatoid factor (Primary Dx); Unspecified iridocyclitis; Immunodeficiency due to drug therapy; Other fatigue Social History Tobacco Use Types Packs/Day Years [...] on file documented as of this encounter Last Filed Vital Signs Vital Sign Reading Time Taken Comments Blood Pressure 120/64 03/06/2024 10:09 AM EDT Pulse 76 03/06/2024 10:09 AM EDT Temperature 36.7 ??C (98 ??F) 03/06/2024 10:09 AM EDT Respiratory Rate - - Oxygen Saturation - - Inhaled Oxygen Concentration - - Weight 88.5 kg (195 lb) 03/06/2024 10:09 AM EDT Height 167.6 cm (5' 6 ) 03/06/2024 10:09 AM EDT Body Mass Index 31.47 03/06/2024 10:09 AM EDT documented in this encounter Progress Notes * Lien Wright, MATT - 03/06/2024 10:15 AM EDT Images from the original note were not included. Office Visit Date: 03/06/2024 Patient Name: Rhonda Braxton Date of : 1975 Referring Physician: No ref. provider found Chief Complaint: Chief Complaint Patient presents with Follow-up Rheumatoid Arthritis History of Present Illness: Rhonda Braxton is a 48 y.o. female who is here today for follow-up of rheumatoid arthritis and unspecified iridocyclitis. She had an ablation for SV September 2023. She denies anyrecent infections or injuries. Today she reports feeling the same. She rates her pain 3 out of 10 and has 10 minutes of morning stiffness. She has quit smoking as of November 2023. We prescribe her Adalimanumab ryvk every 2 weeks. She declines refills. Subjective Review of Systems: Positive for weight gain, dysphagia, hoarseness, leg swelling and palpitations, bloating, heat intolerance, anxiety and depression, joint pain and joint swelling. All other review of symptoms negative. Past Medical History: Past Medical History: Diagnosis Date Anemia Anxiety Depression Migraines RA (rheumatoid arthritis) Tachycardia Uveitis Past Surgical History: Past Surgical History: Procedure Laterality Date ADRENALECTOMY ENLARGED, RIGHT ARM KNEE ARTHROSCOPY Family History: Family History Problem Relation Age of Onset Brain cancer Mother Rheum arthritis Mother Lung cancer Mother Breast cancer Mother Heart disease Father Gout Father Prostate cancer Father Uterine cancer Sister Heart murmur Brother Social History: Social History Socioeconomic History Marital status: Single Tobacco Use Smoking status: Every Day Types: Cigarettes Smokeless tobacco: Never Vaping Use Vaping status: Never Used Substance and Sexual Activity Alcohol use: Yes Comment: MODERATE Drug use: Never Sexual activity: Defer Medications: Current Outpatient Medications: Adalimumab-ryvk, 2 Pen, 40 MG/0.4ML Auto-injector Kit, Inject 40 mg as directed Every 14 (Fourteen)Days., Disp: , Rfl: atorvastatin (LIPITOR) 10 MG tablet, Take 1 tablet by mouth Daily., Disp: , Rfl: fluticasone (Flonase Allergy Relief) 50 MCG/ACT nasal spray, Administer 1-2 sprays into the nostril(s) as directed by provider Daily As Needed for Rhinitis., Disp: , Rfl: montelukast (SINGULAIR) 10 MG tablet, Take 1 tablet by mouth Every Other Day As Needed., Disp: , Rfl: temazepam (RESTORIL) 7.5 MG capsule, Take 1 capsule by mouth At Night As Needed for Sleep., Disp: ,Rfl: varenicline (CHANTIX) 1 MG tablet, Take 1 tablet by mouth Every 12 (Twelve) Hours., Disp: , Rfl: Allergies: No Known Allergies I have reviewed and updated the patient's chief complaint, history of present illness, review of systems, past medical history, surgical history, family history, social history, medications and allergy list as appropriate. Objective Vital Signs: Vitals: 03/06/24 1009 BP: 120/64 BP Location: Left arm Pulse: 76 Temp: 98 ??F (36.7 ??C) Weight: 88.5 kg (195 lb) Height: 167.6 cm (66 ) PainSc: 3 Body mass index is 31.47 kg/m??. Physical Exam: Physical Exam Vitals reviewed. Constitutional: Appearance: Normal appearance. HENT: Head: Normocephalic and atraumatic. Mouth/Throat: Mouth: Mucous membranes are moist. Eyes: Conjunctiva/sclera: Conjunctivae normal. Cardiovascular: Rate and Rhythm: Normal rate and regular rhythm. Pulses: Normal pulses. Heart sounds: Normal heart sounds. Pulmonary: Effort: Pulmonary effort is normal. Breath sounds: Normal breath sounds. Musculoskeletal: General: Normal range of motion. Cervical back: Normal range of motion and neck supple. Comments: No synovitis Crepitus bilateral knees Skin: General: Skin is warm and dry. Neurological: General: No focal deficit present. Mental Status: She is alert and oriented to person, place, and time. Mental status is at baseline. Psychiatric: Mood and Affect: Mood normal. Behavior: Behavior normal. Thought Content: Thought content normal. Judgment: Judgment normal. Results Review: Imaging Results (Last 24 Hours) No results found for the last 24 hours. Procedures Assessment / Plan Assessment/Plan: Diagnoses and all orders for this visit: 1. Rheumatoid arthritis involving multiple sites with positive rheumatoid factor (Primary) Assessment & Plan: * 12/18/19: TSH normal, CBC normal, ESR 6.0, Uric acid 6.0, DAVID positive, RF positive * History of uveitis * 01/31/20: IgG RF+, IgM RF+, CCP negative * Medications/treatments/interventions tried include: Tylenol, Prednisolone eye drops, Cyclopentolate eye drops, Skelaxin, Medrol Dosepak, she has seen an mobile home park manager and an mash processing operator, she has done some physical therapy, Humira * Mother with history of RA 1. Continue Humira. Refill today 2. Check labs 3. Follow up in 6 months 4. Prognosis seems good 5. Occasional joint soreness and swelling. She has had more issues with knee down pain. 6. She is seeing her PCP soon for possible heel spurs. Orders: - Hepatitis Panel, Acute; Future - CBC With Manual Differential; Future - Comprehensive Metabolic Panel; Future - C-reactive Protein; Future - Sedimentation Rate; Future 2. Unspecified iridocyclitis Assessment & Plan: * Medications/treatments/interventions tried include: Tylenol, Prednisolone eye drops, Cyclopentolate eye drops, Skelaxin, Medrol Dosepak, she has seen an mobile home park manager and an mash processing operator, she has done some physical therapy * 12/18/19: TSH normal, CBC normal, ESR 6.0, Uric acid 6.0, DAVID positive, RF positive * Mother with history of RA * 01/31/20: IgG RF+, IgM RF+, CCP negative 1. Continue Humira 2. She has seen an eye doctor 3. She is not currently on steroids 4. No ocular complaints at this time Orders: - CBC With Manual Differential; Future - Comprehensive Metabolic Panel; Future - C-reactive Protein; Future - Sedimentation Rate; Future 3. Immunodeficiency due to drug therapy Assessment & Plan: Hepatitis panel ordered 03/06/24 QTB negative 12/2023 * Humira 40 mg SQ every 14 days for uveitis/RA * Started 01/2020 1. Hold if the patient develops infection. 2. Avoid live vaccines while on this medication. 3. No recent serious infections 4. No injection site reactions. 5. Also hold this medication perioperatively if the patient is going to have a surgical procedure Orders: - Hepatitis Panel, Acute; Future - CBC With Manual Differential; Future - Comprehensive Metabolic Panel; Future - C-reactive Protein; Future - Sedimentation Rate; Future 4. Other fatigue Assessment & Plan: Update hepatitis panel with next lab draw. Orders: - Hepatitis Panel, Acute; Future Follow Up: Return in about 6 months (around 09/04/2024) for Dr. Harris. Lien Wright APRN [facility] * Lien Wright APRN - 03/02/2024 3:15 PM EDTAssociated Problem(s): Unspecified iridocyclitis * Medications/treatments/interventions tried include: Tylenol, Prednisolone eye drops, Cyclopentolate eye drops, Skelaxin, Medrol Dosepak, she has seen an mobile home park manager and an mash processing operator, she has done some physical therapy * 12/18/19: TSH normal, CBC normal, ESR 6.0, Uric acid 6.0, DAVID positive, RF positive * Mother with history of RA * 01/31/20: IgG RF+, IgM RF+, CCP negative 1. Continue Humira 2. She has seen an eye doctor 3. She is not currently on steroids 4. No ocular complaints at this time * Lien Wright APRN - 03/02/2024 3:14 PM EDTAssociated Problem(s): Rheumatoid arthritis * 12/18/19: TSH normal, CBC normal, ESR 6.0, Uric acid 6.0, DAVID positive, RF positive * History of uveitis * 01/31/20: IgG RF+, IgM RF+, CCP negative * Medications/treatments/interventions tried include: Tylenol, Prednisolone eye drops, Cyclopentolate eye drops, Skelaxin, Medrol Dosepak, she has seen an mobile home park manager and an mash processing operator, she has done some physical therapy, Humira * Mother with history of RA 1. Continue Humira. Refill today 2. Check labs 3. Follow up in 6 months 4. Prognosis seems good 5. Occasional joint soreness and swelling. She has had more issues with knee down pain. 6. She is seeing her PCP soon for possible heel spurs. * Lien Wright APRN - 03/02/2024 3:14 PM EDTAssociated Problem(s): Immunodeficiency due to drug therapy Hepatitis panel ordered 03/06/24 QTB negative 12/2023 * Humira 40 mg SQ every 14 days for uveitis/RA * Started 01/2020 1. Hold if the patient develops infection. 2. Avoid live vaccines while on this medication. 3. No recent serious infections 4. No injection site reactions. 5. Also hold this medication perioperatively if the patient is going to have a surgical procedure * Lien Wright APRN - 03/02/2024 3:13 PM EDTAssociated Problem(s): Other fatigue Update hepatitis panel with next lab draw. documented in this encounter Plan of Treatment Upcoming Encounters Date Type Department Care Team (Late st Contact Info) Description 09/04/2024 10:45 AM EDT Office Visit [facility] [address] [facility] [address] [place] [address] Sean Harris DO [address] [facility] [address] [place] [address] Scheduled Orders Name Type Priority Associated Diagnoses Orde r Schedule Hepatitis Panel, Acute Lab Routine Rheumatoid arthritis involving multiple sites with positive rheumatoid factor Immunodeficiency due to drug therapy Other fatigue Expected: 09/14/2024 (Approximate), Expires: 03/06/2025 CBC With Manual Differential Lab Panel Routine Rheumatoid arthritis involving multiple sites with positive rheumatoid factor Unspecified 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 Expected: 06/04/2024 (Approximate), Expires: 03/06/2025 Comprehensive Metabolic Panel Lab Routine Rheumatoid arthritis involving multiple sites with positive rheumatoid factor Unspecified 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 Expected: 06/04/2024 (Approximate), Expires: 03/06/2025 C-reactive Protein Lab Routine Rheumatoid arthritis involving multiple sites with positive rheumatoid factor Unspecified 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 Expected: 06/04/2024 (Approximate), Expires: 03/06/2025 Sedimentation Rate Lab Routine Rheumatoid arthritis involving multiple sites with positive rheumatoid factor Unspecified 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 Expected: 06/04/2024 (Approximate), Expires: 03/06/2025 documented as of this encounter Visit Diagnoses Diagnosis Rheumatoid arthritis involving multiple sites with positive rheumatoid factor- Primary 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
--- OUTSIDE RECORDS SUMMARY | 2024-04-17 11:49 | XMS_ITS | Clinical Summary ---
Author Organization [facility] Address [address] [place] [address] Care Team Providers Care Physical Science Teacher Name Role Phone Kerri Esquivel Primary Care Provider [phone] Allergies No known active allergies Medications atorvastatin (LIPITOR) 10 MG tablet Take 1 tablet by mouth Daily. Active fluticasone (Flonase Allergy Relief) 50 MCG/ACT nasal spray Administer 1-2 sprays into the nostril(s) as directed by provider Daily As Needed for Rhinitis. Active temazepam (RESTORIL) 7.5 MG capsule Take 1 capsule by mouth At Night As Needed for Sleep. Active montelukast (SINGULAIR) 10 MG tablet Take 1 tablet by mouth Every Other Day As Needed. Active Adalimumab-ryvk , 2 Pen, 40 MG/0.4ML Auto-injector Kit Inject 40 mg as directed Every 14 (Fourteen) Days. 4 Active varenicline (CHANTIX) 1 MG tablet Take 1 tablet by mouth Every 12 (Twelve) Hours. 4 Active Active Problems Problem Noted Date Diagnosed Date Unspecified iridocyclitis 03/02/2024 Assessment & Plan (03/02/2024 3:15 PM EDT): * Medications/treatments/interventions tried include: Tylenol, Prednisolone eye drops, Cyclopentolate eye drops, Skelaxin, Medrol Dosepak, she has seen an cloud engagement partner and an butcher helper, she has done some physical therapy * 12/18/19: TSH normal, CBC normal, ESR 6.0, Uric acid 6.0, DAVID positive, RF positive * Mother with history of RA * 01/31/20: IgG RF+, IgM RF+, CCP negative 1. Continue Humira 2. She has seen an eye doctor 3. She is not currently on steroids 4. No ocular complaints at this time Immunodeficiency due to drug therapy 03/02/2024 Assessment & Plan (03/02/2024 3:14 PM EDT): Hepatitis panel ordered 03/06/24 QTB negative 12/2023 * Humira 40 mg SQ every 14 days for uveitis/RA * Started 01/2020 1. Hold if the patient develops infection. 2. Avoid live vaccines while on this medication. 3. No recent serious infections 4. No injection site reactions. 5. Also hold this medication perioperatively if the patient is going to have a surgical procedure Other fatigue 03/02/2024 Assessment & Plan (03/02/2024 3:13 PM EDT): Update hepatitis panel with next lab draw. Rheumatoid arthritis 12/16/2023 Assessment & Plan (03/06/2024 10:25 AM EDT): * 12/18/19: TSH normal, CBC normal, ESR 6.0, Uric acid 6.0, DAVID positive, RF positive * History of uveitis * 01/31/20: IgG RF+, IgM RF+, CCP negative * Medications/treatments/interventions tried include: Tylenol, Prednisolone eye drops, Cyclopentolate eye drops, Skelaxin, Medrol Dosepak, she has seen an cloud engagement partner and an butcher helper, she has done some physical therapy, Humira * Mother with history of RA 1. Continue Humira. Refill today 2. Check labs 3. Follow up in 6 months 4. Prognosis seems good 5. Occasional joint soreness and swelling. She has had more issues with knee down pain. 6. She is seeing her PCP soon for possible heel spurs. Encounters Date Type Department Care Team Description 03/13/2024 Telephone [facility] RHEUMATOLOGY [address] [phone] Sean Harris DO 03/06/2024 10:15 AM EDT Office Visit [facility]UM[facility] [address] [facility] [address] [place] [address] Lien Wright APRN Rheumatoid arthritis involving multiple sites with positive rheumatoid factor (Primary Dx); Unspecified iridocyclitis; Immunodeficiency due to drug therapy; Other fatigue from Last 3 Months Immunizations Name Administration Dates Next Due COVID-19 (UNSPECIFIED) 10/08/2020 Family History Medical History Relation Name Comments Heart murmur Brother Gout Father Heart disease Father Prostate cancer Father Brain cancer Mother Breast cancer Mother Lung cancer Mother Rheum arthritis Mother Uterine cancer Sister Relation Name Status Comments Brother Father Mother Sister Social History Tobacco Use Types Packs/Day Years [...] on file Sexual Orientation Not on file Last Filed Vital Signs Vital Sign Reading [...] Mass Index 31.47 03/06/2024 10:09 AM EDT Plan of Treatment Upcoming Encounters Date Type Department Care Team (Late st Contact Info) Description 09/04/2024 10:45 AM EDT Office Visit [facility] [address] [facility] [address] [place] [address] Sean Harris DO 3000 [facility] [address] [place] [address] Health Maintenance Due Date Last Done Comments Annual Gynecologic Pelvic an d Breast Exam 1975 BMI FOLLOWUP 1975 COLOGUARD 1975 COLON CANCER SCREENING 5 YEA R SIGMOIDOSCOPY 1975 COLONOSCOPY [address] SCREENING [address] COLONOGRAPHY 1975 FECAL OCCULT BLOOD TEST 1975 FIT Testing (1 year) 1975 MAMMOGRAM 1975 Pneumococcal Vaccine 0-64 (1 of 2 - PCV) 10/03/1981 ANNUAL PHYSICAL 02/19/2020 HEPATITIS C SCREENING 02/19/2020 PAP SMEAR 02/19/2020 INFLUENZA VACCINE 12/30/2023 COVID-19 Vaccine ( season) 2024 11/08/2020, 10/11/2020, 10/08/2020 TDAP/TD VACCINES (2 - Td or Tdap) 05/30/2028 018 Procedures Procedure Name Priority Date/Time Associated Diagnosis Comments CT CHEST W CONTRAST Routine 02/17/2024 9:53 AM EDT XR CHEST 2 VW Routine 02/17/2024 9:53 AM EDT CBC AND DIFFERENTIAL Routine 02/17/2024 9:52 AM EDT from Last 3 Months Results * CT Chest With Contrast Diagnostic (02/17/2024 9:53 AM EDT) Anatomical Region Laterality Modality Chest N/A Computed Tomogra phy Historical Provider IMG CT ORDERABLES Final R esult * XR Chest 2 View (02/17/2024 9:53 AM EDT) Anatomical Region Laterality Modality Body N/A Radiographic Natali ging Historical Provider IMG DIAGNOSTIC IMAGING OR DERABLES Final Result * CBC & Differential (02/17/2024 9:52 AM EDT) Blood Historical Provider LAB BLOOD ORDERABLES Ana Maria l Result from Last 3 Months Insurance [facility] PPO Care Teams Physical Science Teacher Relationship Specialty Start Date End Date Kerri Esquivel PA [address] [place] [address] [place] [id number] PCP - General Physician Patented Hogshead Assembler 02/24/24
--- OUTSIDE RECORDS SUMMARY | 2024-04-17 11:50 | XMS_ITS | Encounter Summary ---
Author Organization [place] [address] Care Team Providers Care Instructional Interventionist Name Role Phone Unavailable Primary Care Provider Unavailabl e Reason for Visit * Auth/Cert/Inpt (Routine) Specialty Diagnoses / Procedures Referred By Contac t Referred To Contact Diagnoses SVT (supraventricular tachycardia) (HCC) SVT (supraventricular tachycardia) (HCC) [I47.10] Procedures MT COMPRE EP EVAL ABLTJ 3D MAPG TX SVT MT INTRACARDIAC ELECTROPHYSIOLOGIC 3D MAPPING ELECTROPHYSIOLOGY STUDY SUPRAVENTRICULAR TACHYCARDIA ABLATION Referral ID Status Reason Start Date Expiration Date Visits Re quested Visits Authorized [id number] 1 1 Encounter Details Date Type Department Care Team (Late st Contact Info) Description 09/30/2023 11:38 AM EDT - 09/30/2023 1:23 PM EDT 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 [address] Marty Capps MD [address] [place] [address] [place] [id number] ELECTROPHYSIOLOGY STUDY SUPRAVENTRICULAR TACHYCARDIA ABLATION Surgery Details Date/Time Status Location OR Service Patient Class Case Class Case Type Trauma Case? 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 IMAGING [facility] EP LAB 1 Cardiac Same Day Surgery Elective Panel 1 Procedure LRB Anes Op Region Wound Class Comments ELECTROPHYSIOLOGY STUDY SUPRAVENTRICULAR TACHYCARDIA ABLATION N/A Monitored Anesthesia Care ELECTROPHYSIOLOGY STUDY SUPRAVENTRICULAR TACHYCARDIA ABLATION Surgeon Surgeon Role Service Panel Marty Capps MD Primary Cardiac 1 Special Needs ELECTROPHYSIOLOGY STUDY SUPRAVENTRICULAR TACHYCARDIA ABLATION, 10:15am ARRIVAL documented in this encounter Social History Tobacco Use Types Packs/Day Years Used Date Smoking Tobacco: Never Assessed Alcohol Use Standard Drinks/Week Comments Yes 8 (1 standard drink = 0.6 oz pur e alcohol) Comments Unknown Sex and Gender Information Value Date Recorded Sex Assigned at Not on file Legal Sex Female 8:56 PM EDT Gender Identity Not on file Sexual Orientation Not on file documented as of this encounter Last Filed Vital Signs Vital Sign Reading Time Taken Comments Blood Pressure 125/70 09/30/2023 10:24 AM EDT Pulse 65 09/30/2023 10:24 AM EDT Temperature 36.3 ??C (97.4 ??F) 09/30/2023 10:24 AM E DT Respiratory Rate 16 09/30/2023 10:24 AM EDT Oxygen Saturation 98% 09/30/2023 10:24 AM EDT Inhaled Oxygen Concentration - - Weight 85 kg (187 lb 4.8 oz) 09/30/2023 10:13 AM EDT Height 167.6 cm (5' 6 ) 09/30/2023 10:13 AM EDT Body Mass Index 30.23 09/30/2023 10:13 AM EDT documented in this encounter Discharge Instructions * Discharge Instructions* Juliane Monroe RN - 09/30/2023 10:15 AM EDT [facility]-Cardiovascular Angiogram Discharge IP/OP leg access [facility] Discharge Instructions - Leg Access Best wishes are extended to you on behalf of [facility] as you are discharged. Because we are most concerned with your health, we suggest you carefully read and take an active role in your overall health and follow these instructions. IF YOU ARE DISCHARGED THE DAY OF YOUR PROCEDURE: Return to your usual diet including, low fat, no added salt. Rest quietly today with the leg used for the procedure kept straight. Limit the use of stairs, walk slowly. Do not drive. Leave the bandage in place over the puncture site until next day, when you remove the bandage, shower, and gently cleanse leg with soap and water. A Band- Aid may be placed over the area if desired. You may experience the following conditions: a. Discoloration and/or a small lump at the puncture site this will gradually go away. b. Soreness at the puncture site when you first begin to use your leg. c. Numbness at the puncture site; this should go away within 4-6 hours AFTER THE FIRST 24 HOURS FOLLOWING THE PROCEDURE: You may climb stairs. You may drive a car. You may shower, wash gently in your groin area. Do NOT take a bath, swim, use hot tubs, or submerge your access in water site for five days following your procedure. Do NOT perform strenuous exercise for five days, including golf, bowling, tennis, jogging, household jobs, sexual relations, etc. Do NOT lift objects heavier than 10 pounds for five days. CONCERNS: CALL YOUR PHYSICIAN???S OFFICE TO REPORT THE FOLLOWING Excessive pain in the area around puncture site or in your thigh. Increase in swelling around puncture site or thigh. Loss of color, extreme coldness or numbness of leg. Sign of infection- fever, chills, and redness at puncture site. CONCERNS: BLEEDING Immediately lie flat and apply pressure over the puncture site and have someone call 911 to transport you to your local Emergency Room. You may return to your normal activities in 5 days. . You may return to work in 5 days. . Do NOT stop taking ASPIRIN, PLAVIX (Clopidogrel), BRILINTA (Ticagrelor) or EFFIENT (Prasugrel) for any reason without first discussing with your physician, due to the risk of heart attack and . PAIN ASSESSMENT Location: right groin. Condition: stable. Current Pain Intensity: tolerable IF PAIN INTENSIFIES OR PAIN IS UNRELIEVED WITH MEDICATIONS ORDERED, CALL YOUR PHYSICIAN. MEDICATIONS: *Contact your physician before resuming any medication from home not listed in the discharge medication instruction sheet. PRESCRIPTIONS: FOLLOW-UP TO DOCTOR: Follow up with Dr Capps. ADDITIONAL INSTRUCTIONS: Smoking is hazardous to your health. Second hand smoke is hazardous to those around you. If you smoke, you can contact your Primary Care Provider for smoking cessation information and classes. See your physician regularly. HEART FAILURE: Call your physician if you experience any weight gain of 4 lbs in 2 days, chest discomfort, swelling of feet/ankles, frequent dry hacking cough especially when lying down, dizziness, fainting, passing out, difficulty breathing, leg cramping, decrease in activity tolerance, problems related to current illness/procedure or if symptoms persist or worsen. Stay active, lower your stress level and monitor your blood pressure. Other Instructions: none. I HAVE RECEIVED AND UNDERSTAND THE ABOVE INSTRUCTIONS. Please bring this paper with you when you return to your physician. +++++++++++++++++++++++++++++++++++++++++++++++++++++++++++++++++++ [facility] Discharge Instructions - Following Anesthesia We appreciate the opportunity to care for you today! Here are a few reminders as you head home: A responsible adult, 18 years or older must be in attendance until tomorrow morning. Rest quietly today. May resume usual diet as tolerated or as directed by your surgeon. Do not drive or operate any machinery until tomorrow morning or as instructed. Do not make any legal or important decisions for the next 24 hours. Do not drink alcoholic beverages or take sleeping pills for 24 hours unless otherwise directed. If you received a nerve block for post-operative pain control, protect your blocked arm/leg. It is numb. Carefully pad your limb to prevent pressure sores and other injuries. Be careful with applyingcold/warm to the blocked limb. Numbness will alter the sensation of the limb and could damage your skin if you cannot correctly feel the temperature. If you have questions or concerns regarding your anesthesia experience, please call our office at . Get Well Soon! [facility] +++++++++++++++++++++++++++++++++++++++++++++++++++++++++++++++++++ Post-Procedure Electrophysiology Study/Ablation Instructions You will have a dressing at your groin site post-procedure. You may have a suture at the site, depending on if you had an ablation or the type of ablation. If you do have a suture, it will removed prior to you leaving the hospital. You may have some bruising at the groin site of the procedure. If you notice any bleeding, please contact the doctor. Please refrain from soaking in bathtub/hot tub or swimming for a week post-procedure. Please refrain from lifting more than 10 to 15 pounds and avoid strenuous exercise for a week afteryour procedure. If you have an ablation for supraventricular tachycardia (SVT), you will likely be sent home with aprescription for a beta nataly to take for at least six weeks after the procedure to allow the heart to heal. You may feel periodic palpitations that feel like the heart is trying to race again; it should not progress to a full episode of heart racing. These will calm down as time passes and eventually ease up. You will be seen in the office by a provider in six weeks. If you have prolonged heart racing after the procedure, please contact your doctor. For questions or concerns, you can contact: [facility] documented in this encounter Medications at Time of Discharge adalimumab (HUMIRA) 40 mg/0.8 mL SubQ Pen Injector Kit Subcutaneous (Inject under the skin) 40 mg every 14 days. atorvastatin (LIPITOR) 10 mg Oral Tablet Take 10 mg by mouth daily. fluticasone propion-salmeter oL (ADVAIR DISKUS) 100-50 mcg/dose Inhl Disk with Device Inhale 2 Puffs into the lungs 2 times daily. varenicline tartrate (CHANTIX ORAL) Take by mouth 2 times daily. documented as of this encounter Discharge Disposition Disposition Code Departure Means Destination Comment s Home or Self Care Car Home documented in this encounter Progress Notes * Kalyani Thacker RN - 09/30/2023 4:48 PM EDT Discharge papers reviewed with patient. Patient walked back and forth to bathroom with no bleeding to right groin. IV removed and patient wheeled to car with significant other driving. documented in this encounter H&P Notes * Marty Capps MD - 09/30/2023 11:37 AM EDT H&P Update History & Physical Reviewed Risks benefits discussed NO CHANGES This update is in reference to H&P Source Note - Marty Capps MD - 09/01/2023 11:00 AM EDT Cardiac Electrophysiology Progress Note Patient ID: Rhonda Braxton is a 47 y.o. female. Chief Complaint Patient presents with Follow-up New patient ref to Dr. Capps. Dr. Capps aware of this patient. Medications per patient report. Follow-up Chronicity: New patient ref to Dr. Capps. Dr. Capps aware of this patient. Associated symptoms include chest pain. Pertinent negatives include no coughing, diaphoresis, headaches, myalgias, rash, vertigo or weakness. Their chronic cardiac conditions are: Problem List None Social History Tobacco Use Smoking Status Not on file Smokeless Tobacco Not on file No current outpatient medications on file. No current facility-administered medications for this visit. Patients past medical, family and social histories were reviewed and updated. There were no changesexcept as noted Review of Systems Constitutional: Positive for malaise/fatigue. Negative for diaphoresis, weight gain and weight loss. HENT: Negative for nosebleeds. Cardiovascular: Positive for chest pain, irregular heartbeat and palpitations. Negative for leg swelling and syncope. Respiratory: Positive for shortness of breath. Negative for cough. Skin: Negative for flushing and rash. Musculoskeletal: Negative for falls and myalgias. Gastrointestinal: Negative for heartburn and melena. Neurological: Negative for dizziness, headaches, vertigo and weakness. Psychiatric/Behavioral: Negative for depression. The patient does not have insomnia. Allergic/Immunologic: Negative for hives and persistent infections. Objective: No data found. There is no height or weight on file to calculate BMI. General: No apparent distress. Alert and oriented. Neck:Trachea is midline. Neck veins are flat. Respiratory: Clear to auscultation bilaterally Cardiovascular: Rhythm is regular. S1 and S2 normal. Abdomen: Abdomen is soft and non tender. Extremeties: No Edema. Clubbing is absent. Cyanosis is absent. Skin: Warm and dry. Neurological: Cranial nerves are grossly intact. Speech is normal. C Congestive heart failure (or Left ventricular systolic dysfunction) No 0 N NYHA Functional Class No Value exists for the GARDE MANGER: KE#[id number] - L VASc LV Dysfunction No 0 H Hypertension: blood pressure consistently above 140/90 mmHg (or treated hypertension on medication) No 0 A/A2 Patient Age: < 65 years = 0 0 D Diabetes Mellitus: No 0 S2 Prior Stroke No 0 S2 Prior TIA No 0 S2 Prior Thromboembolism No 0 V Vascular disease (e.g. peripheral artery disease, myocardial infarction, aortic plaque) No 0 Sc Sex category (i.e. female sex) Female = 1 1 [id number] Score 1 Assessment and Plan: documented in this encounter Miscellaneous Notes * Plan of Care - Juliane Monroe RN - 09/30/2023 11:09 AM EDT Patient verbalizes understanding of the cardiac ablation procedure. documented in this encounter Plan of Treatment Upcoming Encounters Date Type Department Care Team (Late st Contact Info) Description 05/11/2024 10:30 AM EST Office Visit [facility] [address] [facility] [address] [place] [address] Yumiko Castaneda APRN [address] [place] [address] documented as of this encounter Procedures Procedure Name Priority Date/Time Associated Diagnosis Comments SCANNED RHYTHM STRIPS 10/01/2023 1:54 PM EDT ELECTROPHYSIOLOGY PROCEDURE Routine 09/30/2023 1:23 PM EDT SVT (supraventricular tachycardia) (HCC) ACTIVATED CLOTTING TIME LR POC Routine 09/30/2023 12:57 PM EDT ACTIVATED CLOTTING TIME LR POC Routine 09/30/2023 12:41 PM EDT CBC WITH DIFF STAT 09/30/2023 10:37 AM EDT SVT (supraventricular tachycardia) (HCC) THYROID STIMULATING HORMONE STAT 09/30/2023 10:37 AM EDT SVT (supraventricular tachycardia) (HCC) BASIC METABOLIC PANEL STAT 09/30/2023 10:37 AM EDT SVT (supraventricular tachycardia) (HCC) documented in this encounter Results * SCANNED RHYTHM STRIPS (10/01/2023 1:54 PM EDT) Anatomical Region Laterality Modality Other 10/01/2023 1:54 PM EDT us Unknown Provider IMG ECG ORDERABLES Final Result * ELECTROPHYSIOLOGY STUDY WITH SUPRAVENTRICULAR TACHYCARDIA ABLATION (09/30/2023 1:23 PM EDT) Narrative [facility] - 09/30/2023 1:34 PM EDT ?Radiofrequency Ablation of ORT ?Concealed Left Sided Accessory Pathway Procedure Details Procedure: 1. Comprehensive electrophysiology study 2. Radiofrequency ablation of supraventricular tachycardia 3. Electro-anatomic 3-D Mapping 4. Coronary sinus catheter for recording and pacing the left atrium 5. Transseptal puncture 6. Intracardiac ultrasound Indication for Procedure: 1. 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 Three J-tipped wires were advanced into the IVC. One short 6-Serbian introducer, one 8-Serbian introducer and one 8.5 Fr SR0 sheath were placed in the right common femoral vein. A navigation enabled ablation catheter was inserted into the SR-0 to create a matrix using [employer] system. The coronary sinus and RV catheters were positioned with fluoroscopy and used for pacing and recording the left atrium and right ventricle. The ablation catheter was used to measure the His bundle and place His fiducial on electro-anatomic map. Tachycardia ORT over concealed left sided accessory pathway Trans-septal Puncture Intracardiac Ultrasound (phased array) was positioned in the mid right atrium to visualize th fossa ovalis which was intact. A BRK1 was inserted into the SL-0 ([employer]) sheath positioned in the SVC. The needle and sheath assembly was then brought down into position using ICE and flourscopy. The tip of the SLO sheath could be seen with ICE catheter causing tenting of the interatrial septum toward the left atrium. Transeptal puncture was then performed with SafeSept needle which was then advanced into the left superior pulmonary vein. The dilator and sheath were advanced into the left atrium. The wire and dilator were then removed from while aspirating on the side port. [id number] of Heparin was given immediately after transseptal access. Ablation: 50W with QDot Postablation: There was no evidence of AH jump and no AV shashi echoes before, during and after There was not evidence of another arrhythmia on EPS PLAN: 1. 3hr bed rest after achieving hemostasis. 2. DC metoprolol 3. Discharge home today 4. Will follow-up with patient in 1-2 months in clinic Marty Capps MD ELECTROPHYSIOLOGY ORDERA BLES Final Result Performing Organization Address City/[facility]/ZIP Co de Phone Number [facility] * (ABNORMAL) ACTIVATED CLOTTING TIME LR POC (09/30/2023 12:57 PM EDT) [facility] ACT-LR >400(H) 89 - 169 second(s) 09/30/2023 1:03 PM EDT [facility] Blood BLOOD SPECIMEN / Unknown 09/30/2023 12:57 PM EDT 09/30/2023 1:03 PM EDT Marty Capps MD POINT OF CARE TEST ORDER BHASKAR Final Result Performing Organization Address City/[facility]/ZIP Co de Phone Number [address] [address] * (ABNORMAL) ACTIVATED CLOTTING TIME LR POC (09/30/2023 12:41 PM EDT) [facility] ACT-LR >400(H) 89 - 169 second(s) 09/30/2023 12:47 PM EDT [facility] Blood BLOOD SPECIMEN / Unknown 09/30/2023 12:41 PM EDT 09/30/2023 12:47 PM EDT Marty Capps MD POINT OF CARE TEST ORDER BHASKAR Final Result Performing Organization Address [facility]/ZIP Co de Phone Number [facility] [address] [place] [address] * THYROID STIMULATING HORMONE (09/30/2023 10:37 AM EDT) TSH 2.390 0.270 - 4.200 mcIU/mL 09/30/2023 11:22 AM EDT [facility] Blood VENOUS BLOOD / Unknown Venipuncture / Unknown 09/30/2023 10:37 AM EDT 09/30/2023 10:41 AM EDT Narrative [facility] - 09/30/2023 11:22 AM EDT Ingestion of miriam doses of biotin (>5 mg/day) taken within 8 hours of drawing blood sample can interfere with this immunoassay test. Marty Capps MD CHEMISTRY ORDERABLES Fin al Result Performing Organization Address [facility]/ZIP Co de Phone Number [facility] [address] [facility], [place] [address] * CBC WITH DIFF (09/30/2023 10:37 AM EDT) WBC 5.7 3.7 - 10.3 x10(3)/mcL 09/30/2023 10:44 AM EDT [facility] RBC 4.26 3.90 - 5.20 x10(6)/mcL 09/30/2023 10:44 AM EDT [facility] Hgb 13.3 11.2 - 15.7 g/dL 09/30/2023 10:44 AM EDT [facility] Hct 39.8 34.0 - 45.0 % 09/30/2023 10:44 AM EDT [facility] MCV 93.4 80.0 - 100.0 fL 09/30/2023 10:44 AM EDT [facility] MCH 31.2 26.0 - 34.0 pg 09/30/2023 10:44 AM EDT [facility] MCHC 33.4 30.7 - 35.5 g/dL 09/30/2023 10:44 AM EDT [facility] RDW 12.8 <=14.9 % 09/30/2023 10:44 AM EDT [facility] Platelet 190 155 - 369 x10(3)/mcL 09/30/2023 10:44 AM EDT [facility] MPV 10.3 8.8 - 12.5 fL 09/30/2023 10:44 AM EDT [facility] Neut Percent 45.5 % 09/30/2023 10:44 AM EDT [facility] Comment:Neutrophils equals s egs plus bands Imm Gran% 0.2 % 09/30/2023 10:44 AM EDT [facility] Comment:Automated count of m etamyelocytes, myelocytes and promyelocytes. Lymph Percent 40.8 % 09/30/2023 10:44 AM EDT [facility] [place] Percent 9.5 % 09/30/2023 10:44 AM EDT [facility] Eos Percent 3.3 % 09/30/2023 10:44 AM EDT [facility] Baso Percent 0.7 % 09/30/2023 10:44 AM EDT [facility] Neut # 2.6 1.6 - 6.1 x10(3)/mcL 09/30/2023 10:44 AM EDT [facility] Comment:Neutrophils equals s egs plus bands IMMGRAN# 0.0 0.0 - 0.1 x10(3)/mcL 09/30/2023 10:44 AM EDT [facility] Comment:Automated count of m etamyelocytes, myelocytes and promyelocytes. An absolute IG <0.1 is reported as 0.0. Lymph # 2.3 1.2 - 3.9 x10(3)/mcL 09/30/2023 10:44 AM EDT [facility] [place]pton # 0.5 0.3 - 0.9 x10(3)/mcL 09/30/2023 10:44 AM EDT [facility] Eos# 0.2 0.0 - 0.5 x10(3)/mcL 09/30/2023 10:44 AM EDT [facility] Baso # 0.0 0.0 - 0.1 x10(3)/mcL 09/30/2023 10:44 AM EDT [facility] Blood VENOUS BLOOD / Unknown Venipuncture / Unknown 09/30/2023 10:37 AM EDT 09/30/2023 10:41 AM EDT us Marty Capps MD HEMATOLOGY ORDERABLES Fi nal Result [facility] [address] [facility] , [address] [place] [id number] * BASIC METABOLIC PANEL (09/30/2023 10:37 AM EDT) Sodium 140 136 - 145 mmol/L 09/30/2023 11:22 AM EDT [facility] Potassium 4.0 3.5 - 5.0 mmol/L 09/30/2023 11:22 AM EDT [facility] Chloride 106 98 - 107 mmol/L 09/30/2023 11:22 AM EDT [facility] Total CO2 24 22 - 29 mmol/L 09/30/2023 11:22 AM EDT [facility] Anion Gap 10 7 - 16 mmol/L 09/30/2023 11:22 AM EDT [facility] Calcium 9.0 8.6 - 10.4 mg/dL 09/30/2023 11:22 AM EDT [facility] Glucose Lvl 98 70 - 99 mg/dL 09/30/2023 11:22 AM EDT [facility] BUN 15 6 - 20 mg/dL 09/30/2023 11:22 AM EDT [facility] Creatinine 0.67 0.51 - 1.30 mg/dL 09/30/2023 11:22 AM EDT [facility] eGFR (CKD-EPIcr 2020) 108 >=60 mL/min/1.7 3 m2 09/30/2023 11:22 AM EDT [facility] Comment:Estimated GFR was ca lculated using the CKD-EPIcr (2020) equation refit without race. The equation is recommended by the National Kidney Foundation - [place] [employer] Neph[employer] Task Force. Blood VENOUS BLOOD / Unknown Venipuncture / Unknown 09/30/2023 10:37 AM EDT 09/30/2023 10:41 AM EDT us Marty Capps MD CHEMISTRY ORDERABLES Fin al Result [facility] [address] [facility], [address] [place] [id number] [facility] [address] [place], [place] [id number] documented in this encounter Visit Diagnoses Diagnosis SVT (supraventricular tachycardia) (HCC)- Primary Other specified cardiac dysrhythmias SVT (supraventricular tachycardia) (HCC) Other specified cardiac dysrhythmias Preop testing Preoperative examination, unspecified Premenopausal patient Symptomatic menopausal or female climacteric states SVT (supraventricular tachycardia) (HCC) Other specified cardiac dysrhythmias documented in this encounter Admitting Diagnoses Diagnosis SVT (supraventricular tachycardia) (HCC) Other specified cardiac dysrhythmias documented in this encounter Administered Medications Inactive Administered Medications - up to 1 most recent administrations Medication Order MAR Action Action Date Dose Rate Site acetaminophen (TYLENOL) tablet 650 mg 650 mg, Oral, EVERY 4 HOURS PRN, Starting on [place] 24 at 1449, Until [place] 524 at 2100, Headaches, Maximum adult dose of acetaminophen is 4000 mg from all sources in 24 hours., Post-op aluminum & magnesium hydroxide-simethicone 200-200-20 mg/5 mL suspension 15 mL 15 mL, Oral, EVERY 4 HOURS PRN, Starting on [place] 524 at 1449, Until [place] 5/2/24 at 2100, Indigestion, Shake well., Post-op bupivacaine (MARCAINE) 0.5 % (5 mg/mL) injection PRN, Starting on [place] 24 at 1202, Until [place] 24 at 1323, Intra-procedure(Cath) Given 09/30/2023 12:02 PM EDT 10 mL Right Groin docusate sodium (COLACE) capsule 100 mg 100 mg, Oral, 2 TIMES DAILY PRN, Starting on [place] 09/30/23 at 1449, Until [place] 09/30/23 at 2100, Constipation, Stool softening, Do not crush or chew., Post-op fentaNYL (SUBLIMAZE) injection 25 mcg 25 mcg, Intravenous, EVERY 5 MIN PRN, Starting on [place] 24 at 1015, Until [place] 09/30/23 at 1814, Pain, For initial pain. Maximum dose not to exceed 100 mcg., PACU heparin 2 units/ml in 0.9% NaCl 500 mL PRN, Starting on [place] 09/30/23 at 1155, Until [place] 09/30/23 at 1323, Intra-procedure(Cath) Given 09/30/2023 11:55 AM EDT 1 'Bag' hydrALAZINE (APRESOLINE) injection 5 mg 5 mg, Intravenous, EVERY 4 HOURS PRN, Starting on [place] 09/30/23 at 1449, Until [place]ha 09/30/23 at 2100, High Blood Pressure, SBP greater than (>) 160, Administer over 2 minutes. , Blood Pressure options: SBP greater than (>) 180, Post-op HYDROmorphone (DILAUDID) injection 0.25 mg 0.25 mg, Intravenous, EVERY 10 MIN PRN, Starting on [place] 09/30/23 at 1015, Until [place] 24 at 1814, Breakthrough Pain, Do not exceed 2 mg in one hour unless otherwise ordered by the Anesthesia Coordinator For pain unrelieved by fentanyl or oral opioid, PACU HYDROmorphone (DILAUDID) injection 1 mg 1 mg, Intravenous, EVERY 3 HOURS PRN, Starting on [place] 09/30/23 at 1549, Until [place]ha 524 at 2100, Pain Unrelieved by Oral Opioid Therapy, Post-op ketorolac (TORADOL) injection 15 mg 15 mg, Intravenous, EVERY 6 HOURS PRN, Starting on [place]ha 524 at 1449, Until [place] 24 at 2100, post ablation pericardial pain, For IV Administration: Give undiluted over at least 15 seconds. Maximum IV dose is 30mg. For IM Administration: Give undiluted, slowly and deeply into the muscle., Post-op lactated ringers infusion Intravenous, at 30 mL/hr, PREPROCEDURE CONTINUOUS, Starting on Wed09/29/23 at 0802, Until [place]ha 09/30/23 at 2000, Administer 1 hour prior to procedure in left arm with 20 gauge or larger IV catheter, Pre-op ([facility]), Dx: 1. SVT (supraventricular tachycardia) (HCC)Indications:SVT (supraventricular tachycardia) (HCC) IV Restarted 09/30/2023 11:45 AM EDT LORazepam (ATIVAN) injection 1-2 mg 1-2 mg, Intravenous, EVERY 4 HOURS PRN, Starting on [place] 09/30/23 at 1449, Until [place] 09/30/23 at 2100, Anxiety, VESICANT , Post-op LORazepam (ATIVAN) tablet 1-2 mg 1-2 mg, Oral, EVERY 4 HOURS PRN, Starting on [place] 09/30/23 at 1449, Until [place] 09/30/23 at 2100, Anxiety, Post-op metoclopramide HCl (REGLAN) injection 10 mg 10 mg, Intravenous, EVERY 6 HOURS PRN, Starting on [place] 09/30/23 at 1449, Until [place] 24 at 2100, Nausea, Post-op ondansetron (ZOFRAN) injection 4 mg 4 mg, Intravenous, ONCE PRN, 1 dose, Starting on [place] 09/30/23 at 1015, Until [place] 24 at 2100, Nausea, First Line Antiemetic, Do not give if patient received granisetron (Kytril) or ondansetron (Zofran) within 4 hours., PACU ondansetron (ZOFRAN) injection 4 mg 4 mg, Intravenous, EVERY 6 HOURS PRN, Starting on [place] 09/30/23 at 1449, Until [place] 24 at 2100, Nausea, For nausea unrelieved by metoclopramide (REGLAN), Post-op ondansetron (ZOFRAN-ODT) disintegrating tablet 8 mg 8 mg, Oral, ONCE PRN, 1 dose, Starting on [place] 09/30/23 at 1015, Until [place] 5/2/24 at 2100, Nausea, First Line Antiemetic, Do not give if patient received granisetron (Kytril) or ondansetron (Zofran) within 4 hours., PACU oxyCODONE (ROXICODONE) immediate release tablet 5 mg 5 mg, Oral, EVERY 1 HOUR PRN, Starting on [place] 09/30/23 at 1015, Until [place] 09/30/23 at 1814, Pain, When tolerating oral intake. Maximum dose not to exceed 10 mg unless otherwise directed by the Anesthesia Coordinator., PACU oxyCODONE-acetaminophen (PERCOCET) 5-325 mg per tablet 1-2 Tablet 1-2 Tablet, Oral, EVERY 4 HOURS PRN, Starting on [place] 09/30/23 at 1449, Until [place]ha 09/30/23 at 2100, Pain, Begin with lowest dose unless otherwise directed. Reassess pain in one hour. If pain unrelieved, remainder of dose may be given to patient. *Maximum adult dose of acetaminophen is 4000 mg from all sources in 24 hours.*, Post-op sodium chloride 0.9% IV line flush 20-50 mL 20-50 mL, Intravenous, at 150-600 mL/hr, PRN, Starting on [place]ha 09/30/23 at 1447, Until [place]ha 09/30/23 at 2100, Line Care, Flush with a minimum of 20 mL after IVPB to insure complete administration of the dose. May use the saline infusion to back flush IVPB tubing as needed. sodium chloride 0.9% syringe Intravenous, EVERY 12 HOURS SCHEDULED (2 times per day), First dose on [place]ha 09/30/23 at 2100, Until Discontinued, Flush with 3-5 mL saline for PERIPHERAL saline lock maintenance. sodium chloride 0.9% syringe Intravenous, PRN, Starting on [place] 09/30/23 at 1447, Until [place] 09/30/23 at 2100, Line Care, Flush with 5-10 mL saline pre/post IVP, and 5 mL prior to IVPB or blood product administration. documented in this encounter Discontinued Medications Medication Sig Discontinue Reason Start Date End Da te apixaban (ELIQUIS) 5 mg Oral Tablet Take 5 mg by mouth 2 times daily. Stop Taking at Discharge 09/30/2023 metoprolol (LOPRESSOR) 50 mg Oral Tablet Take 1 Tablet by mouth 2 times daily. Stop Taking at Discharge 09/01/2023 09/30/2023 documented as of this encounter Historical Medications * This list may reflect changes made after this encounter. varenicline tartrate (CHANTIX ORAL) Take by mouth 2 times daily. added in this encounter Active and Recently Administered Medications Times are shown in EDT. Scheduled Medication Order 09/28/2023 09/29/2023 09/30/2023 sodium chloride 0.9% syringe Intravenous, EVERY 12 HOURS SCHEDULED (2 times per day), First dose on [place]ha 24 at 2100, Until Discontinued, Flush with 3-5 mL saline for PERIPHERAL saline lock maintenance. PRN Medication Order 09/28/2023 09/29/2023 09/30/2023 acetaminophen (TYLENOL) tablet 650 mg 650 mg, Oral, EVERY 4 HOURS PRN, Starting on [place] 524 at 1449, Until [place] 524 at 2100, Headaches, Maximum adult dose of acetaminophen is 4000 mg from all sources in 24 hours., Post-op aluminum & magnesium hydroxide-simethicone 200-200-20 mg/5 mL suspension 15 mL 15 mL, Oral, EVERY 4 HOURS PRN, Starting on [place]ha 5/24 at 1449, Until [place] 5/24 at 2100, Indigestion, Shake well., Post-op bupivacaine (MARCAINE) 0.5 % (5 mg/mL) injection (CANCELED) PRN, Starting on [place]ha 524 at 1202, Until [place] 5/24 at 1323, Intra-procedure(Cath) 1202 (Given - Provid er: Marty Capps MD) docusate sodium (COLACE) capsule 100 mg 100 mg, Oral, 2 TIMES DAILY PRN, Starting on [place] 524 at 1449, Until [place]ha 5//24 at 2100, Constipation, Stool softening, Do not crush or chew., Post-op fentaNYL (SUBLIMAZE) injection 25 mcg 25 mcg, Intravenous, EVERY 5 MIN PRN, Starting on [place]ha 524 at 1015, Until [place] 524 at 1814, Pain, For initial pain. Maximum dose not to exceed 100 mcg., PACU heparin 2 units/ml in 0.9% NaCl 500 mL (CANCELED) PRN, Starting on [place]ha 524 at 1155, Until [place] 5/24 at 1323, Intra-procedure(Cath) 1155 (Given - Provid er: Marty Capps MD) hydrALAZINE (APRESOLINE) injection 5 mg 5 mg, Intravenous, EVERY 4 HOURS PRN, Starting on [place]ha 524 at 1449, Until [place] 524 at 2100, High Blood Pressure, SBP greater than (>) 160, Administer over 2 minutes. , Blood Pressure options: SBP greater than (>) 180, Post-op HYDROmorphone (DILAUDID) injection 0.25 mg 0.25 mg, Intravenous, EVERY 10 MIN PRN, Starting on [place] 24 at 1015, Until [place] 524 at 1814, Breakthrough Pain, Do not exceed 2 mg in one hour unless otherwise ordered by the Anesthesia Coordinator For pain unrelieved by fentanyl or oral opioid, PACU HYDROmorphone (DILAUDID) injection 1 mg 1 mg, Intravenous, EVERY 3 HOURS PRN, Starting on [place]ha 524 at 1549, Until [place] 524 at 2100, Pain Unrelieved by Oral Opioid Therapy, Post-op ketorolac (TORADOL) injection 15 mg 15 mg, Intravenous, EVERY 6 HOURS PRN, Starting on [place]ha 24 at 1449, Until [place] 5/24 at 2100, post ablation pericardial pain, For IV Administration: Give undiluted over at least 15 seconds. Maximum IV dose is 30mg. For IM Administration: Give undiluted, slowly and deeply into the muscle., Post-op lactated ringers infusion Intravenous, at 30 mL/hr, PREPROCEDURE CONTINUOUS, Starting on Wed09/29/23 at 0802, Until [place] 09/30/23 at 2001, Administer 1 hour prior to procedure in left arm with 20 gauge or larger IV catheter, Pre-op ([facility]), Dx: 1. SVT (supraventricular tachycardia) (HCC) 1030 (New Bag - Prov ider: Juliane Monroe RN)1144 (IV Paused - Provider: Matthew Agee LOW PRESSURE BOILER TENDER - Comment: Switch to gravity)1145 (IV Restarted - Provider: Matthew Agee CRNA)1309 (Stopped - Provider: Matthew Agee CRNA) LORazepam (ATIVAN) injection 1-2 mg(Linked Group 1) 1-2 mg, Intravenous, EVERY 4 HOURS PRN, Starting on [place]ha 5/2/24 at 1449, Until [place] 5/2/24 at 2100, Anxiety, VESICANT , Post-op LORazepam (ATIVAN) tablet 1-2 mg(Linked Group 1) 1-2 mg, Oral, EVERY 4 HOURS PRN, Starting on [place] 5/2/24 at 1449, Until [place] 5/2/24 at 2100, Anxiety, Post-op metoclopramide HCl (REGLAN) injection 10 mg(Linked Group 2) 10 mg, Intravenous, EVERY 6 HOURS PRN, Starting on [place] 5/2/24 at 1449, Until [place] 5/2/24 at 2100, Nausea, Post-op ondansetron (ZOFRAN) injection 4 mg(Linked Group 3) 4 mg, Intravenous, ONCE PRN, 1 dose, Starting on [place] 5/2/24 at 1015, Until [place] 5/2/24 at 2100, Nausea, First Line Antiemetic, Do not give if patient received granisetron (Kytril) or ondansetron (Zofran) within 4 hours., PACU ondansetron (ZOFRAN) injection 4 mg(Linked Group 2) 4 mg, Intravenous, EVERY 6 HOURS PRN, Starting on [place] 5/2/24 at 1449, Until [place] 5/2/24 at 2100, Nausea, For nausea unrelieved by metoclopramide (REGLAN), Post-op ondansetron (ZOFRAN-ODT) disintegrating tablet 8 mg(Linked Group 3) 8 mg, Oral, ONCE PRN, 1 dose, Starting on [place] 5/2/24 at 1015, Until [place] 5/2/24 at 2100, Nausea, First Line Antiemetic, Do not give if patient received granisetron (Kytril) or ondansetron (Zofran) within 4 hours., PACU oxyCODONE (ROXICODONE) immediate release tablet 5 mg 5 mg, Oral, EVERY 1 HOUR PRN, Starting on [place] 524 at 1015, Until [place] 524 at 1814, Pain, When tolerating oral intake. Maximum dose not to exceed 10 mg unless otherwise directed by the Anesthesia Coordinator., PACU oxyCODONE-acetaminophen (PERCOCET) 5-325 mg per tablet 1-2 Tablet 1-2 Tablet, Oral, EVERY 4 HOURS PRN, Starting on [place] 524 at 1449, Until [place] 524 at 2100, Pain, Begin with lowest dose unless otherwise directed. Reassess pain in one hour. If pain unrelieved, remainder of dose may be given to patient. *Maximum adult dose of acetaminophen is 4000 mg from all sources in 24 hours.*, Post-op sodium chloride 0.9% IV line flush 20-50 mL 20-50 mL, Intravenous, at 150-600 mL/hr, PRN, Starting on [place]ha 524 at 1447, Until [place] 524 at 2100, Line Care, Flush with a minimum of 20 mL after IVPB to insure complete administration of the dose. May use the saline infusion to back flush IVPB tubing as needed. sodium chloride 0.9% syringe Intravenous, PRN, Starting on [place]ha 524 at 1447, Until [place] 5/24 at 2100, Line Care, Flush with 5-10 mL saline pre/post IVP, and 5 mL prior to IVPB or blood product administration. Linked Groups Order Group 1: LORazepam (ATIVAN) tablet 1-2 mgJump to med 1-2 mg, Oral, EVERY 4 HOURS PRN, Starting on [place] 524 at 1449, Until [place] 5/24 at 2100, Anxiety, Post-op Or LORazepam (ATIVAN) injection 1-2 mgJump to med 1-2 mg, Intravenous, EVERY 4 HOURS PRN, Starting on [place]ha 5//24 at 1449, Until [place] 5//24 at 2100, Anxiety, VESICANT , Post-op Group 2: metoclopramide HCl (REGLAN) injection 10 mgJump to med 10 mg, Intravenous, EVERY 6 HOURS PRN, Starting on [place]ha 524 at 1449, Until [place] 09/30/23 at 2100, Nausea, Post-op Or ondansetron (ZOFRAN) injection 4 mgJump to med 4 mg, Intravenous, EVERY 6 HOURS PRN, Starting on [place] 09/30/23 at 1449, Until [place] 09/30/23 at 2100, Nausea, For nausea unrelieved by metoclopramide (REGLAN), Post- op Group 3: ondansetron (ZOFRAN) injection 4 mgJump to med 4 mg, Intravenous, ONCE PRN, 1 dose, Starting on [place] 09/30/23 at 1015, Until [place] 09/30/23 at 2100, Nausea, First Line Antiemetic, Do not give if patient received granisetron (Kytril) or ondansetron (Zofran) within 4 hours., PACU Or ondansetron (ZOFRAN-ODT) disintegrating tablet 8 mgJump to med 8 mg, Oral, ONCE PRN, 1 dose, Starting on [place] 09/30/23 at 1015, Until [place] 09/30/23 at 2100, Nausea, First Line Antiemetic, Do not give if patient received granisetron (Kytril) or ondansetron (Zofran) within 4 hours., PACU documented in this encounter Orders Medications Ordered That Petr ht Not Have Been Administered Count Last Ordered Date First Ordered Date acetaminophen (TYLENOL) tablet 650 mg 1 07/2023 aluminum & magnesium hydroxi de-simethicone 200-200-20 mg/5 mL suspension 15 mL 1 09/30/2023 docusate sodium (COLACE) capsule 100 mg 1 0 09/30/2023 fentaNYL (SUBLIMAZE) injection 25 mcg 1 07/2023 hydrALAZINE (APRESOLINE) injection 5 mg 1 0 09/30/2023 HYDROmorphone (DILAUDID) injection 0.25 mg 1 09/30/2023 HYDROmorphone (DILAUDID) injection 1 mg 2 0 09/30/2023 ketorolac (TORADOL) injection 15 mg 1 09/29 LORazepam (ATIVAN) injection 1-2 mg 1 09/29 LORazepam (ATIVAN) tablet 1-2 mg 1 05/02/20 24 metoclopramide HCl (REGLAN) injection 10 mg 1 09/30/2023 ondansetron (ZOFRAN) injection 4 mg 2 09/29 ondansetron (ZOFRAN-ODT) dis integrating tablet 8 mg 1 09/30/2023 oxyCODONE (ROXICODONE) immed iate release tablet 5 mg 1 09/30/2023 oxyCODONE-acetaminophen (PER COCET) 5-325 mg per tablet 1-2 Tablet 1 09/30/2023 sodium chloride 0.9% IV line flush 20-50 mL 1 09/30/2023 sodium chloride 0.9% syringe 2 09/30/2023 Discharge Count Last Ordered Date First Orde red Date DISCHARGE PATIENT 1 09/30/2023 documented in this encounter
--- OUTSIDE RECORDS SUMMARY | 2024-04-17 11:50 | XMS_ITS | Encounter Summary ---
Author Organization [place] [address] Care Team Providers Care Cut Lace Machine Operator Name Role Phone Unavailable Primary Care Provider Unavailabl e Encounter Details Date Type Department Care Team (Late st Contact Info) Description 09/07/2023 Orders Only [facility] [address] [phone] Jenae Lindsay, QUILL SKINNER [address] [place], [place] [id number] SVT (supraventricular tachycardia) (HCC) (Primary Dx) Social History Tobacco Use Types Packs/Day Years Used Date Smoking Tobacco: Never Assessed Comments Unknown Sex and Gender Information Value Date Recorded Sex Assigned at Not on file Legal Sex Female 8:56 PM EDT Gender Identity Not on file Sexual Orientation Not on file documented as of this encounter Plan of Treatment Upcoming Encounters Date Type Department Care Team (Late st Contact Info) Description 05/11/2024 10:30 AM EST Office Visit [facility] [address] [address] Yumiko Castaneda, QUILL SKINNER [address] [place], [place] [id number] documented as of this encounter Visit Diagnoses Diagnosis SVT (supraventricular tachycardia) (HCC)- Primary Other specified cardiac dysrhythmias documented in this encounter
--- OUTSIDE RECORDS SUMMARY | 2024-04-17 11:50 | XMS_ITS | Encounter Summary ---
Author Organization [facility] [place] [address] Care Team Providers Care Microelectronics Assembler Name Role Phone Unavailable Primary Care Provider Unavailabl e Reason for Visit * Reason Onset Date Comments Procedure 09/06/2023 Pre Procedure in structions Encounter Details Date Type Department Care Team (Late st Contact Info) Description 09/06/2023 Telephone [facility] [address] [facility] [address] [place] [address] Marty Capps MD [address] [place], [place] [id number] Procedure (Pre Procedure instructions) Social History Tobacco Use Types Packs/Day Years Used Date Smoking Tobacco: Never Assessed Comments Unknown Sex and Gender Information Value Date Recorded Sex Assigned at Not on file Legal Sex Female 8:56 PM EDT Gender Identity Not on file Sexual Orientation Not on file documented as of this encounter Miscellaneous Notes * Telephone Encounter - Opal Griffin, Clerical Staff - 09/23/2023 11:23 AM EDT Patient called the office. She wanted her lab orders faxed over to [facility] lab. Faxed over orders to [phone]. Asked for them to fax results back to our office. FYI * Telephone Encounter - Stephany Belcher MA - 09/06/2023 3:55 PM EDT Pt is scheduled for a procedure on 09/30/[address] Capps. While patient was here, I went over all procedure instructions with them. I advised patient to arrive at the pt entrance at [facility] on 09/30/23 at 10:15am for a 12:15pm procedure. Pt is not to have anything to eat or drink after midnight the night prior to the procedure. Pt was instructed not to take Eliquis and metoprolol for 48 hours prior to the procedure per Dr. Capps's order on 09/01/23. Pt was advised to go to any [facility] outpatient lab to have pre procedure lab work completed within a week before the procedure. I also gave pt their follow up appointment for 11/11/23 at 11am with Yumiko Castaneda APRN. Pt agr eed and verbalized understanding to all orders and was given a packet which included all info. * Telephone Encounter - Stephany Belcher MA - 09/06/2023 10:43 AM EDT Patient called back, phone number was update by Opal. Pt is going to call Dr. Day office for records. Apologized for the inconvenience. * Telephone Encounter - Stephany Belcher MA - 09/06/2023 10:27 AM EDT Attempted to call pt, pt hung up on me the 1st time, called again to see if that was an accident but was told I had the wrong number. LMTCB on significant other's phone. Need to know where the patient was seen, need documented SVT or ablation will not get approved. Please change pt's number if it is incorrect. documented in this encounter Plan of Treatment Upcoming Encounters Date Type Department Care Team (Late st Contact Info) Description 05/11/2024 10:30 AM EST Office Visit [facility] [address] [facility] [address] [place] [address] Yumiko Castaneda APRN [address] [place] [address] documented as of this encounter Visit Diagnoses Not on filedocumented in this encounter
--- OUTSIDE RECORDS SUMMARY | 2024-04-17 11:50 | XMS_ITS | Encounter Summary ---
Author Organization [facility] [address] Care Team Providers Care Dairy Department Manager Name Role Phone Unavailable Primary Care Provider Unavailabl e Encounter Details Date Type Department Care Team (Latest Contact Info) Description 09/30/2023 Travel Social History Tobacco Use Types Packs/Day Years [...] [facility] [address] [facility] [address] [place] [address] Yumiko Castaneda, COLLAR TURNER [address] [place] [address] documented as of this encounter Visit Diagnoses Not on filedocumented in this encounter
--- OUTSIDE RECORDS SUMMARY | 2024-04-17 11:50 | XMS_ITS | Encounter Summary ---
Author [place] [address] Care Team Providers Care Instrument Lens Generator Name Role Phone Unavailable Primary Care Provider Unavailabl e Reason for Visit * Auth/Cert/Inpt (Routine) Specialty Diagnoses / Procedures Referred By Contac t Referred To Contact Diagnoses SVT (supraventricular tachycardia) (HCC) SVT (supraventricular tachycardia) (HCC) [I47.10] Procedures SC COMPRE EP EVAL ABLTJ 3D MAPG TX SVT SC INTRACARDIAC ELECTROPHYSIOLOGIC 3D MAPPING ELECTROPHYSIOLOGY STUDY SUPRAVENTRICULAR TACHYCARDIA ABLATION Referral ID Status Reason Start Date Expiration Date Visits Re quested Visits Authorized [id number] 1 1 Encounter Details Date Type Department Care Team (Latest Contact Info) Description 09/30/2023 9:54 AM EDT - 09/30/2023 4:49 PM EDT Hospital Encounter EDG CARD CATH REC [facility] [place] [address] Marty Capps MD [address] [place] [address] [place] [address] Preop testing (Primary Dx); SVT (supraventricular tachycardia) (HCC); Premenopausal patient Discharge Disposition: Home or Self Care Social History Tobacco Use Types Packs/Day Years [...] Sign Reading Time Taken Comments Blood Pressure 127/77 09/30/2023 4:00 PM EDT Pulse 70 09/30/2023 4:15 PM EDT Temperature 36.3 ??C (97.4 ??F) 09/30/2023 10:24 AM E DT Respiratory Rate 12 09/30/2023 3:00 PM EDT Oxygen Saturation 99% 09/30/2023 4:15 PM EDT Inhaled Oxygen Concentration - - Weight 85 kg (187 lb 4.8 oz) 09/30/2023 10:13 AM EDT Height 167.6 cm (5' 6 ) 09/30/2023 10:13 AM EDT Body Mass Index 30.23 09/30/2023 10:13 AM EDT documented in this encounter Discharge Instructions * Discharge Instructions* Juliane Monroe RN - 09/30/2023 10:15 AM EDT [facility]-Cardiovascular Angiogram Discharge IP/OP leg access [facility] Discharge Instructions - Leg Access Best wishes are extended to you on behalf of [facility] as you are discharged. Because we are [...] when you return to your physician. +++++++++++++++++++++++++++++++++++++++++++++++++++++++++++++++++++ [facility] Discharge Instructions - Following Anesthesia We appreciate [...] our office at . Get Well Soon! 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 female sex) Female = 1 1 [id number] Score 1 Assessment and Plan: documented in this encounter Miscellaneous Notes * Plan of Care - Juliane Monroe RN - 09/30/2023 11:09 AM EDT Patient verbalizes understanding of the cardiac ablation procedure. documented in this encounter Plan of Treatment Upcoming Encounters Date Type Department Care Team (Late st Contact Info) Description 05/11/2024 10:30 AM EST Office Visit [facility] [address] [facility] [address] [place] [address] Yumiko Castaneda, DEVELOPING MACHINE TENDER [address] [place] [address] documented as of this encounter [...] Indication for Procedure: 1. Recurrent SVT Anesthesia: ASSOCIATE DIRECTOR CAREER SERVICES (Versed and Fentanyl) Procedure details: Access to the right femoral vein was obtained via the modified Seldinger technique. Three J-tipped wires were advanced into the IVC. One short 6-Spanish introducer, one 8-Spanish introducer and one 8.5 Fr SR0 sheath were placed in the right common femoral vein. A navigation enabled ablation catheter was inserted into the SR-0 to create a matrix using BiosRedDrummerter Carto system. The coronary sinus and RV catheters [...] from while aspirating on the side port. [id number] of Heparin was given immediately after transseptal [...] ORDERA BLES Final Result Performing Organization Address [facility] de Phone Number [employer] CARDIOLOGY * (ABNORMAL) ACTIVATED CLOTTING TIME LR POC (09/30/2023 12:57 PM EDT) ACT-LR >400(H) 89 - 169 second(s) 09/30/2023 1:03 PM EDT [facility] Blood BLOOD SPECIMEN / Unknown 09/30/2023 12:57 PM EDT 09/30/2023 1:03 PM EDT Marty Capps MD POINT OF CARE TEST ORDER BHASKAR Final Result Performing Organization Address [facility] [place] [address] * (ABNORMAL) ACTIVATED CLOTTING TIME LR POC (09/30/2023 12:41 PM EDT) ACT-LR >400(H) 89 - 169 second(s) 09/30/2023 12:47 PM EDT [facility] Blood BLOOD SPECIMEN / Unknown 09/30/2023 12:41 PM EDT 09/30/2023 12:47 PM EDT Marty Capps MD POINT OF CARE TEST ORDER BHASKAR Final Result Performing Organization Address [facility]/State/ZIP Co de Phone Number [facility] [address] [place] [address] * THYROID STIMULATING HORMONE (09/30/2023 10:37 AM EDT) Pathologist [facility] TSH 2.390 0.270 - 4.200 mcIU/mL 09/30/2023 11:22 AM EDT [email or web address] Blood VENOUS BLOOD / Unknown Venipuncture / Unknown 09/30/2023 10:37 AM EDT 09/30/2023 10:41 AM EDT Narrative [email or web address] - 09/30/2023 11:22 AM EDT Ingestion of miriam doses of biotin (>5 mg/day) taken within 8 hours of drawing blood sample can interfere with this immunoassay test. us Marty Capps MD CHEMISTRY ORDERABLES Fin al Result [email or web address], [address], [place] [address] * CBC WITH DIFF (09/30/2023 10:37 AM EDT) [facility] WBC 5.7 3.7 - 10.3 x10(3)/mcL 09/30/2023 10:44 AM EDT [facility] RBC 4.26 3.90 - 5.20 x10(6)/mcL 09/30/2023 10:44 AM EDT [facility] Hgb 13.3 11.2 - 15.7 g/dL 09/30/2023 10:44 AM EDT [facility] Hct 39.8 34.0 - 45.0 % 09/30/2023 10:44 AM EDT [facility] MCV 93.4 80.0 - 100.0 fL 09/30/2023 10:44 AM EDT [facility] MCH 31.2 26.0 - 34.0 pg 09/30/2023 10:44 AM EDT [facility] MCHC 33.4 30.7 - 35.5 g/dL 09/30/2023 10:44 AM EDT [facility] RDW 12.8 <=14.9 % 09/30/2023 10:44 AM EDT [facility] Platelet 190 155 - 369 x10(3)/[facility] 09/30/2023 10:44 AM EDT [facility] MPV 10.3 8.8 - 12.5 fL 09/30/2023 10:44 AM EDT [facility] Neut Percent 45.5 % 09/30/2023 10:44 AM EDT [facility] Comment:Neutrophils equals s egs plus bands Imm Gran% 0.2 % 09/30/2023 10:44 AM EDT [facility] Comment:Automated count of m etamyelocytes, myelocytes and promyelocytes. Lymph Percent 40.8 % 09/30/2023 10:44 AM EDT [facility] [place] Percent 9.5 % 09/30/2023 10:44 AM EDT [facility] Eos Percent 3.3 % 09/30/2023 10:44 AM EDT [facility] Baso Percent 0.7 % 09/30/2023 10:44 AM EDT [facility] Neut # 2.6 1.6 - 6.1 x10(3)/[facility] 09/30/2023 10:44 AM EDT [facility] Comment:Neutrophils equals s egs plus bands IMMGRAN# 0.0 0.0 - 0.1 x10(3)/[facility] 09/30/2023 10:44 AM EDT [facility] Comment:Automated count of m etamyelocytes, myelocytes and promyelocytes. An absolute IG <0.1 is reported as 0.0. Lymph # 2.3 1.2 - 3.9 x10(3)/[facility] 09/30/2023 10:44 AM EDT [facility] [place] # 0.5 0.3 - 0.9 x10(3)/[facility] 09/30/2023 10:44 AM EDT [facility] Eos# 0.2 0.0 - 0.5 x10(3)/[facility] 09/30/2023 10:44 AM EDT [facility] Baso # 0.0 0.0 - 0.1 x10(3)/[facility] 09/30/2023 10:44 AM EDT [facility] Blood VENOUS BLOOD / Unknown Venipuncture / Unknown 09/30/2023 10:37 AM EDT 09/30/2023 10:41 AM EDT us Marty Capps MD HEMATOLOGY ORDERABLES Fi nal Result [facility] [address] [facility] , [place] [address] * BASIC METABOLIC PANEL (09/30/2023 10:37 AM EDT) Sodium 140 136 - 145 mmol/L 09/30/2023 11:22 AM EDT [facility] Potassium 4.0 3.5 - 5.0 mmol/L 09/30/2023 11:22 AM EDT [facility] Chloride 106 98 - 107 mmol/L 09/30/2023 11:22 AM EDT [facility] Total CO2 24 22 - 29 mmol/L 09/30/2023 11:22 AM EDT [facility] Anion Gap 10 7 - 16 mmol/L 09/30/2023 11:22 AM EDT [facility] Calcium 9.0 8.6 - 10.4 mg/dL 09/30/2023 11:22 AM EDT [facility] Glucose Lvl 98 70 - 99 mg/dL 09/30/2023 11:22 AM EDT [facility] BUN 15 6 - 20 mg/dL 09/30/2023 11:22 AM EDT [facility] Creatinine 0.67 0.51 - 1.30 mg/dL 09/30/2023 11:22 AM EDT [facility] eGFR (CKD-EPIcr 2020) 108 >=60 mL/min/1.7 3 m2 09/30/2023 11:22 AM EDT [facility] Comment:Estimated GFR was ca lculated using the CKD-EPIcr (2020) equation refit without race. The equation is recommended by the National Kidney Foundation - [place] [employer] of Nephrology Task Force. Blood VENOUS BLOOD / Unknown Venipuncture / Unknown 09/30/2023 10:37 AM EDT 09/30/2023 10:41 AM EDT us Marty Capps MD CHEMISTRY ORDERABLES Fin al Result [facility] [address] [facility], [place] [address] [facility] [address] [place] [address] documented in this encounter Visit Diagnoses Diagnosis SVT (supraventricular tachycardia) (HCC)- Primary Other specified cardiac dysrhythmias SVT (supraventricular tachycardia) (HCC) Other specified cardiac dysrhythmias Preop testing Preoperative examination, unspecified Premenopausal patient Symptomatic menopausal or female climacteric states S/P ablation operation for arrhythmia Other postprocedural status SVT (supraventricular tachycardia) (HCC) Other specified cardiac [...] at 1449, Until Lakesha 24 at 2100, Headaches, Maximum adult dose of acetaminophen is 4000 mg from all sources in 24 hours., Post-op aluminum & magnesium hydroxide-simethicone 200-200-20 mg/5 mL suspension 15 mL 15 mL, Oral, EVERY 4 HOURS PRN, Starting on Lakesha 24 at 1449, Until [place]ha 24 at 2100, Indigestion, Shake well., Post-op docusate sodium (COLACE) capsule 100 mg 100 mg, Oral, 2 TIMES DAILY PRN, Starting on Lakesha 524 at 1449, Until [place]ha 24 at 2100, Constipation, Stool softening, Do not crush or chew., Post-op fentaNYL (SUBLIMAZE) injection 25 mcg 25 mcg, Intravenous, EVERY 5 MIN PRN, Starting on [place]ha 09/30/23 at 1015, Until [place] 09/30/23 at 1814, Pain, For initial pain. Maximum dose not to exceed 100 mcg., PACU hydrALAZINE (APRESOLINE) injection 5 mg 5 mg, Intravenous, EVERY 4 HOURS PRN, Starting on [place]ha 09/30/23 at 1449, Until Lakesha 24 at 2100, High Blood Pressure, SBP greater [...] on [place]ha 09/30/23 at 1549, Until Lakesha 24 at 2100, Pain Unrelieved by Oral Opioid [...] CONTINUOUS, Starting on Wed09/29/23 at 0802, Until Wed09/30/23 at 2001, Administer 1 hour prior to procedure in left arm with 20 gauge or larger IV catheter, Pre-op ([facility]), Dx: 1. SVT (supraventricular tachycardia) (HCC)Indications:SVT (supraventricular tachycardia) (HCC) IV Restarted 09/30/2023 11:45 AM EDT LORazepam (ATIVAN) injection 1-2 mg 1-2 mg, Intravenous, EVERY 4 HOURS PRN, Starting on [place]ha 09/30/23 at 1449, Until Lakesha 24 at 2100, Anxiety, VESICANT , Post-op LORazepam (ATIVAN) tablet 1-2 mg 1-2 mg, Oral, EVERY 4 HOURS PRN, Starting on Lakesha 5//24 at 1449, Until Lakesha 5//24 at 2100, Anxiety, Post-op metoclopramide HCl (REGLAN) injection 10 mg 10 mg, Intravenous, EVERY 6 HOURS PRN, Starting on Lakesha 5//24 at 1449, Until Lakesha 5//24 at 2100, Nausea, Post-op ondansetron (ZOFRAN) injection 4 mg 4 mg, Intravenous, ONCE PRN, 1 dose, Starting on Lakesha 5//24 at 1015, Until Lakesha 5//24 at 2100, Nausea, First Line Antiemetic, Do not give if patient received granisetron (Kytril) or ondansetron (Zofran) within 4 hours., PACU ondansetron (ZOFRAN) injection 4 mg 4 mg, Intravenous, EVERY 6 HOURS PRN, Starting on Lakesha 524 at 1449, Until [place]ha 524 at 2100, Nausea, For nausea unrelieved by metoclopramide (REGLAN), Post-op ondansetron (ZOFRAN-ODT) disintegrating tablet 8 mg 8 mg, Oral, ONCE PRN, 1 dose, Starting on [place]ha 524 at 1015, Until Lakesha 5//24 at 2100, Nausea, First Line Antiemetic, Do not give if patient received granisetron (Kytril) or ondansetron (Zofran) within 4 hours., PACU oxyCODONE (ROXICODONE) immediate release tablet 5 mg 5 mg, Oral, EVERY 1 HOUR PRN, Starting on Lakesha 5/24 at 1015, Until Lakesha 524 at 1814, Pain, When tolerating oral intake. Maximum dose not to exceed 10 mg unless otherwise directed by the Anesthesia Coordinator., PACU oxyCODONE-acetaminophen (PERCOCET) 5-325 mg per tablet 1-2 Tablet 1-2 Tablet, Oral, EVERY 4 HOURS PRN, Starting on Lakesha 5/24 at 1449, Until Lakesha 5//24 at 2100, Pain, Begin with lowest dose [...] on Lakesha 5/2/24 at 1449, Until Lakesha 5//24 at 2100, Headaches, Maximum adult dose of acetaminophen is 4000 mg from all sources in 24 hours., Post-op aluminum & magnesium hydroxide-simethicone 200-200-20 mg/5 mL suspension 15 mL 15 mL, Oral, EVERY 4 HOURS PRN, Starting on Lakesha 5//24 at 1449, Until Lakesha 5//24 at 2100, Indigestion, Shake well., Post-op bupivacaine (MARCAINE) 0.5 % (5 mg/mL) injection (CANCELED) PRN, Starting on Lakesha 5//24 at 1202, Until Lakesha 5//24 at 1323, Intra-procedure(Cath) 1202 (Given - Provid er: Marty Capps MD) docusate sodium (COLACE) capsule 100 mg 100 mg, Oral, 2 TIMES DAILY PRN, Starting on Lakesha 5//24 at 1449, Until Lakesha 5/24 at 2100, Constipation, Stool softening, Do not crush or chew., Post-op fentaNYL (SUBLIMAZE) injection 25 mcg 25 mcg, Intravenous, EVERY 5 MIN PRN, Starting on Lakesha 5//24 at 1015, Until Lakesha 5//24 at 1814, Pain, For initial pain. Maximum dose not to exceed 100 mcg., PACU heparin 2 units/ml in 0.9% NaCl 500 mL (CANCELED) PRN, Starting on Lakesha 5//24 at 1155, Until Lakesha 5//24 at 1323, Intra-procedure(Cath) 1155 (Given - Provid er: Marty Capps MD) hydrALAZINE (APRESOLINE) injection 5 mg 5 mg, Intravenous, EVERY 4 HOURS PRN, Starting on Lakesha 5//24 at 1449, Until Lakesha 5//24 at 2100, High Blood Pressure, SBP greater than (>) 160, Administer over 2 minutes. , Blood Pressure options: SBP greater than (>) 180, Post-op HYDROmorphone (DILAUDID) injection 0.25 mg 0.25 mg, Intravenous, EVERY 10 MIN PRN, Starting on Lakesha 5//24 at 1015, Until Lakesha 5/24 at 1814, Breakthrough Pain, Do not exceed [...] 20 gauge or larger IV catheter, Pre-op ([facility]), Dx: 1. SVT (supraventricular tachycardia) ([facility]) 1030 (New Bag - Prov ider: Juliane Monroe RN)1144 (IV Paused - Provider: Matthew Agee CRNA - Comment: Switch to gravity)1145 (IV Restarted - Provider: Matthew Agee CRNA)1309 (Stopped - Provider: Matthew Agee CRNA) LORazepam (ATIVAN) injection 1-2 mg(Linked Group 1) 1-2 mg, Intravenous, EVERY 4 HOURS PRN, Starting on Lakesha 09/30/23 at 1449, Until [place]ha 524 at 2100, Anxiety, VESICANT , Post-op LORazepam (ATIVAN) tablet 1-2 mg(Linked Group 1) 1-2 mg, Oral, EVERY 4 HOURS PRN, Starting on Lakesha 24 at 1449, Until Lakesha 524 at 2100, Anxiety, Post-op metoclopramide HCl (REGLAN) injection 10 mg(Linked Group 2) 10 mg, Intravenous, EVERY 6 HOURS PRN, Starting on Lakesha 24 at 1449, Until Lakesha 5//24 at 2100, Nausea, Post-op ondansetron (ZOFRAN) injection 4 mg(Linked Group 3) 4 mg, Intravenous, ONCE PRN, 1 dose, Starting on Lakesha 5//24 at 1015, Until Lakesha 5/2/24 at 2100, Nausea, First Line Antiemetic, Do not give if patient received granisetron (Kytril) or ondansetron (Zofran) within 4 hours., PACU ondansetron (ZOFRAN) injection 4 mg(Linked Group 2) 4 mg, Intravenous, EVERY 6 HOURS PRN, Starting on Lakesha 5//24 at 1449, Until Lakesha 5//24 at 2100, Nausea, For nausea unrelieved by metoclopramide (REGLAN), Post-op ondansetron (ZOFRAN-ODT) disintegrating tablet 8 mg(Linked Group 3) 8 mg, Oral, ONCE PRN, 1 dose, Starting on Lakesha 524 at 1015, Until Lakesha 5//24 at 2100, Nausea, First Line Antiemetic, Do not give if patient received granisetron (Kytril) or ondansetron (Zofran) within 4 hours., PACU oxyCODONE (ROXICODONE) immediate release tablet 5 mg 5 mg, Oral, EVERY 1 HOUR PRN, Starting on Lakesha 5/24 at 1015, Until Lakesha 5//24 at 1814, Pain, When tolerating oral intake. Maximum dose not to exceed 10 mg unless otherwise directed by the Anesthesia Coordinator., PACU oxyCODONE-acetaminophen (PERCOCET) 5-325 mg per tablet 1-2 Tablet 1-2 Tablet, Oral, EVERY 4 HOURS PRN, Starting on Lakesha 5//24 at 1449, Until Lakesha 5//24 at 2100, Pain, Begin with lowest dose [...] on Lakesha 524 at 1447, Until Lakesha 5//24 at 2100, Line Care, Flush with a minimum of 20 mL after IVPB to insure complete administration of the dose. May use the saline infusion to back flush IVPB tubing as needed. sodium chloride 0.9% syringe Intravenous, PRN, Starting on Lakesha 524 at 1447, Until Lakesha 524 at 2100, Line Care, Flush with 5-10 mL saline pre/post IVP, and 5 mL prior to IVPB or blood product administration. Linked Groups Order Group 1: LORazepam (ATIVAN) tablet 1-2 mgJump to med 1-2 mg, Oral, EVERY 4 HOURS PRN, Starting on Lakesha 524 at 1449, Until Lakesha 524 at 2100, Anxiety, Post-op Or LORazepam (ATIVAN) injection 1-2 mgJump to med 1-2 mg, Intravenous, EVERY 4 HOURS PRN, Starting on Lakesha 524 at 1449, Until Lakesha 524 at 2100, Anxiety, VESICANT , Post-op Group 2: metoclopramide HCl (REGLAN) injection 10 mgJump to med 10 mg, Intravenous, EVERY 6 HOURS PRN, Starting on Lakesha 524 at 1449, Until Lakesha 524 at 2100, Nausea, Post-op Or ondansetron (ZOFRAN) injection 4 mgJump to med 4 mg, Intravenous, EVERY 6 HOURS PRN, Starting on Lakesha 524 at 1449, Until Lakesha 524 at 2100, Nausea, For nausea unrelieved by metoclopramide (REGLAN), Post- op Group 3: ondansetron (ZOFRAN) injection 4 mgJump to med 4 mg, Intravenous, ONCE PRN, 1 dose, Starting on Lakesha 524 at 1015, Until Lakesha 524 at 2100, Nausea, First Line Antiemetic, Do [...] mg/5 mL suspension 15 mL 1 09/30/2023 bupivacaine (MARCAINE) 0.5 % (5 mg/mL) injection 1 09/30/2023 docusate sodium (COLACE) capsule 100 mg 1 0 09/30/2023 fentaNYL (SUBLIMAZE) injection 25 mcg 1 07/2023 heparin 2 units/ml in 0.9% NaCl 500 mL 1 hydrALAZINE (APRESOLINE) injection 5 mg 1 0 09/30/2023 HYDROmorphone (DILAUDID) injection 0.25 mg 1 09/30/2023 HYDROmorphone (DILAUDID) injection 1 mg 2 0 09/30/2023 ketorolac (TORADOL) injection 15 mg 1 09/29 LORazepam (ATIVAN) injection 1-2 mg 1 09/29 LORazepam (ATIVAN) tablet 1-2 mg 1 09/30/19 metoclopramide HCl (REGLAN) injection 10 mg 1 [...]
--- OUTSIDE RECORDS SUMMARY | 2024-04-17 11:50 | XMS_ITS | Encounter Summary ---
Author Organization [facility] ystem Address [address] [place] [address] Care Team Providers Care Kitchen And Counter Worker Name Role Phone Unavailable Primary Care Provider Unavailabl e Reason for Visit * Reason Comments Med Refill Encounter Details Date Type Department Care Team (Late st Contact Info) Description 10/08/2023 Refill [facility] RHEUM[facility]OLOGY [address] [address] Sean Harris, [address] [facility] [address] [place], [place] [id number] Social History Tobacco Use Types Packs/Day Years [...] encounter Miscellaneous Notes * Telephone Encounter - Stormy Ulrich MA - 10/12/2023 8:38 AM EDT Patient needs updated labs for Humira refill. No labs received from 09/20/23 visit. KD documented in this encounter Plan of Treatment Upcoming Encounters Date Type Department Care Team (Late st Contact Info) Description 09/04/2024 10:45 AM EDT Office Visit [facility] RHEUMATOLOGY [address] [address] Sean Harris DO [address] [facility] [address] [place] [address] documented as of this encounter Visit Diagnoses Not on filedocumented in this encounter
--- OUTSIDE RECORDS SUMMARY | 2024-04-17 11:50 | XMS_ITS | Encounter Summary ---
Author Organization [place] [address] Care Team Providers Care Project Asst Name Role Phone Unavailable Primary Care Provider Unavailabl e Reason for Visit * Reason Comments Follow-up New patient ref to Dae Capps. Dr. Capps aware of this patient. Medications per patient report. Encounter Details Date Type Department Care Team (Late st Contact Info) Description 09/01/2023 11:00 AM EDT Office Visit [facility] [address] [facility] [address] [place] [address] Marty Capps MD [address] [place] [id number] [phone] SVT (supraventricular tachycardia) (HCC) (Primary Dx); Atrial fibrillation, unspecified type (HCC) Social History Tobacco Use Types Packs/Day Years Used Date Smoking Tobacco: Never Assessed Comments Unknown Sex and Gender Information Value Date Recorded Sex Assigned at Not on file Legal Sex Female 8:56 PM EDT Gender Identity Not on file Sexual Orientation Not on file documented as of this encounter Last Filed Vital Signs Vital Sign Reading Time Taken Comments Blood Pressure 118/68 09/01/2023 10:58 AM EDT Pulse 54 09/01/2023 10:58 AM EDT Temperature - - Respiratory Rate - - Oxygen Saturation 97% 09/01/2023 10:58 AM EDT Inhaled Oxygen Concentration - - Weight 85.3 kg (188 lb) 09/01/2023 10:58 AM EDT Height - - Body Mass Index - - documented in this encounter Ordered Prescriptions Prescription Sig Dispense Quantity Refills Last Filled Start Date End Date metoprolol (LOPRESSOR) 50 mg Oral Tablet Take 1 Tablet by mouth 2 times daily. 60 Tablet 5 09/01/2023 09/30/2023 documented in this encounter Progress Notes * Marty Capps MD - 09/01/2023 11:00 AM [...] Functional Class No Value exists for the [facility]: [facility][id number] - L VASc LV Dysfunction No 0 [...] (i.e. female sex) Female = 1 1 [id number] Score 1 Assessment and Plan: documented in this encounter Miscellaneous Notes * Patient Instructions - Garland Mckay MA - 09/01/2023 11:00 AM EDT You may be contacted by mail or e-mail to participate in a patient satisfaction survey regarding your office visit today. We value your opinion and depend on your feedback to make improvements and provide you with the best possible experience while receiving high quality medical treatment. Your time in completing this survey is greatly appreciated. * Addendum Note - Stephany Belcher MA - 09/01/2023 11:00 AM EDTAddended by: STEPHANY BELCHER on: 09/06/2023 03:51 PM Modules accepted: Orders documented in this encounter Plan of Treatment Upcoming Encounters Date Type Department Care Team (Late st Contact Info) Description 05/11/2024 10:30 AM EST Office Visit [facility] [address] [facility] [address] [place] [address] Yumiko Castaneda APRN [address] [place] [address] documented as of this encounter Procedures Procedure Name Priority Date/Time Associated Diagnosis Comments POCT EKG Routine 09/01/2023 11:02 AM EDT SVT (supraventricular tachycardia) (HCC) Atrial fibrillation, unspecified type (HCC) documented in this encounter Results * POCT EKG (09/01/2023 11:02 AM EDT) 09/01/2023 11:0 2 AM EDT Impressions [facility] - 09/01/2023 11:03 AM EDT SR Marty Capps MD POINT OF CARE CARDIOLOGY Final Result [facility] documented in this encounter Visit Diagnoses Diagnosis SVT (supraventricular tachycardia) (HCC)- Primary Other specified cardiac dysrhythmias Atrial fibrillation, unspecified type (HCC) documented in this encounter Discontinued Medications Medication Sig Discontinue Reason Start Date End Da te amiodarone (PACERONE) 400 mg Oral Tablet Take 400 mg by mouth 2 times daily. Cancelled by 09/01/2023 bisoproloL-hydrochloroth iazide (ZIAC) 5-6.25 mg Oral Tablet Take 1 Tablet by mouth daily. Cancelled by 09/01/2023 documented as of this encounter Historical Medications * This list may reflect changes made after this encounter. fluticasone propion-salmeter oL (ADVAIR DISKUS) 100-50 mcg/dose Inhl Disk with Device Inhale 2 Puffs into the lungs 2 times daily. adalimumab (HUMIRA) 40 mg/0.8 mL SubQ Pen Injector Kit Subcutaneous (Inject under the skin) 40 mg every 14 days. atorvastatin (LIPITOR) 10 mg Oral Tablet Take 10 mg by mouth daily. bisoproloL-hydro chlorothiazide (ZIAC) 5-6.25 mg Oral Tablet Take 1 Tablet by mouth daily. 4 amiodarone (PACERONE) 400 mg Oral Tablet Take 400 mg by mouth 2 times daily. apixaban (ELIQUIS) 5 mg Oral Tablet Take 5 mg by mouth 2 times daily. 4 added in this encounter Orders Procedures Count Last Ordered Date First Orde red Date SURGICAL/PROCEDURE CASE REQUEST 1 4 documented in this encounter
--- OUTSIDE RECORDS SUMMARY | 2024-04-17 11:50 | XMS_ITS | Encounter Summary ---
Author Organization [facility] [place] [place] [address] Care Team Providers Care Blankbook Forwarder Name Role Phone Unavailable Primary Care Provider Unavailabl e Encounter Details Date Type Department Care Team (Latest Contact Info) Description 11/11/2023 Travel Social History Tobacco Use Types Packs/Day Years Used Date Smoking Tobacco: Some Days Cigarettes 0.5 32.9 Started: 05/31/1991 Smokeless Tobacco: Never Alcohol Use Standard Drinks/Week Comments Yes 8 [...] Office Visit [facility] [address] [facility] [address] [place] [address] Yumiko Castaneda, MATT [address] [place] [address] documented as of this encounter Visit Diagnoses Not on filedocumented in this encounter
--- OUTSIDE RECORDS SUMMARY | 2024-04-17 11:50 | XMS_ITS ---
Author Organization [facility] Address [address] [place] [address] Care Team Providers Care Block Splitter Operator Name Role Phone Kerri Esquivel Primary Care Provider [phone] Rheumatology - External Fill Status:Enrolled (Active) Start date:12/16/2023 Enrollment date:12/16/2023 Enrollment reason:Identified as being on target medication Current support & services provided:Benefits Investigation, External Pharmacy Dispensing Linked medications:Adalimumab (Discontinued) Linked problems:Rheumatoid arthritis (Active) Overview Arianna Case Team Name Relationship Phone Lisette Burgos Baggage Agent Glass Blower Helper Sunny Tinsley Baggage Agent Glass Blower Helper Sd Pitts PharmD Pharmacist Continued Care and Services Coordination
--- OUTSIDE RECORDS SUMMARY | 2024-04-17 11:50 | XMS_ITS | Encounter Summary ---
Author Organization [place] [address] Care Team Providers Care Counselor Dormitory Name Role Phone Unavailable Primary Care Provider Unavailabl e Reason for Visit * Auth/Cert/Inpt (Routine) Specialty Diagnoses / Procedures Referred By Contac t Referred To Contact Diagnoses SVT (supraventricular tachycardia) (HCC) SVT (supraventricular tachycardia) (HCC) [I47.10] Procedures AR COMPRE EP EVAL ABLTJ 3D MAPG TX SVT AR INTRACARDIAC ELECTROPHYSIOLOGIC 3D MAPPING ELECTROPHYSIOLOGY STUDY SUPRAVENTRICULAR TACHYCARDIA ABLATION Referral ID Status Reason Start Date Expiration Date Visits Re quested Visits Authorized [id number] 1 1 Encounter Details Date Type Department Care Team (Late st Contact Info) Description 09/30/2023 11:45 AM EDT Anesthesia Event EDG ORTHODONTIC TECHNICIAN ASSISTANT [facility] [place] [address] Anthony Reece MD [address] [place] [address] [address] [place] [address] Record, Ophelia Stoner APRN [address] [place] [address] Anesthesia Record Procedure Summary Procedure Name Responsible Anesthesiologist Anesthesia Start Time Anesthesia Stop Time ELECTROPHYSIOLOGY STUDY SUPRAVENTRICULAR TACHYCARDIA ABLATION Anthony Reece MD 09/30/23 1145 09/30/23 1331 Events Date Time Event Comment 09/30/2023 1019 1129 AN Equip Check 1145 An Start 1145 An Start Data 1153 Immediate Pre Anesthetic Ass es 1154 Anesthesia Ready 1201 Time out 1203 Incision 1225 Oral Airway Placed 1325 an stop data 1331 Handoff I completed my SBAR handoff to the receiving nurse which has included the followin. Identification of the patient, family, or patient surrogate 2. Identification of the responsible practitioner 3. Pertinent medical history 4. Surgical procedure and reason for procedure 5. Intraoperative anesthetic management 6. All current lines, drains and respiratory support. 7. Outstanding follow up orders (X-rays, consults etc) 8. Expectations/Plans for the early post-procedure period 9. Opportunity for questions and acknowledgement of understanding from the receiving PACU/ICU water team leader 1331 An Stop Meds Name Total propofol (DIPRIVAN) injection 70 mg propofol (DIPRIVAN) infusion 10 mg/mL 89 2,500 mcg ketamine injection 10 mg/mL 5 mL syringe 50 mg glycopyrrolate (ROBINUL) injection 0.2 m g heparin (porcine) injection 5,000 units/ mL 13,000 Units fentaNYL 50 MCG/ML INJ 100 mcg protamine injection 50 mg lactated ringers infusion 1,200 mL * Agents Name O2 Et Sevoflurane * Blood No blood administrations on file. Lines, Drains, and Airways Type Details Placement Removal Peripheral IV 09/30/23; 1030; 20; Left; Wrist; DIONNA Cardozo; 1; 09/30/23; 1635; Discharged; Catheter intact, Dressing applied, No Complications 09/30/23 1030 by Juliane Monroe RN 09/30/23 1635 by Kalyani Thacker RN Venous Sheath 09/30/23; 1204; Righ t femoral vein; 9 fr (1 additonal 8.5 and 1 6 Fr sheath); Yes; Yes; Yes; Yes; Yes; Yes; Yes; Y; EP Staff 09/30/23 1204 by Mirna Monae RN 09/30/23 1322 by Mirna Monae, DIONNA Airway Device: Non-Rebreath er; Placement Date: 09/30/23; Placement Time: 1231 (created via procedure documentation); Removal Date: 09/30/23; Removal Time: 204909/30/23 1232 by Matthew Agee CRNA 09/30/232049 by Discharge Provider, Automatic documented in this encounter Social History Tobacco [...] on file documented as of this encounter Procedure Notes * Matthew Agee CRNA - 09/30/2023 12:10 PM EDTAssociated Order(s): Airway Intraop Airway Placement: Date/Time: 09/30/2023 12:32 PM Airway type: Non-rebreather documented in this encounter OR Notes * Anesthesia Postprocedure Evaluation - Anthony Reece MD - 09/30/2023 2:18 PM EDT Post-Anesthesia Evaluation Note Patient Name: Rhonda Braxton Patient Date: September 30, 2023 Post-Anesthesia Evaluation Patient Location: [facility] Post op vitals: stable Difficult airway: no Nausea controlled: yes Level of consciousness: awake Post anesthesia pain: adequate analgesia Airway patency: patent Respiratory status: room air Cardiovascular status: stable Hydration status: euvolemic Temperature: Normothermia Perioperative complications: NONE Vitals Value Taken Time BP 121/83 09/30/23 1415 Resp 12 09/30/23 1415 SpO2 98 % 09/30/23 1415 Temp 09/30/23 1418 Pulse 67 09/30/23 1415 * Anesthesia Preprocedure Evaluation - Anthony Reece MD - 09/30/2023 10:15 AM EDT Pre-Anesthesia Evaluation Note Patient Name: Rhonda Braxton Sex: female Patient : 1975 Age: 47 y.o. Patient Date: September 30, 2023 Procedure(s): ELECTROPHYSIOLOGY STUDY SUPRAVENTRICULAR TACHYCARDIA ABLATION Anesthesia Evaluation No previous anesthesia. 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 Anesthesia Plan ASA 3 Last solid intake: The patient has not eaten within the last 8 hours. Last clear liquid intake: The patient has not had clear liquids within the last 2 hours. Last tobacco use: The patient has not used tobacco today. Anesthesia Plan: MAC Informed consent Anesthetic plan and risks discussed with: patient. Use of blood products discussed with patient whom consented to blood products. Chart Reviewed and patient examined documented in this encounter Miscellaneous Notes * PAT Pre Evaluation for Anesthesia - Ophelia Zuniga APRN - 09/29/2023 7:58 AM EDT Pre-Anesthesia Evaluation Note Patient Name: Rhonda Braxton Sex: female Patient : 1975 Age: 47 y.o. Patient Date: September 29, 2023 Procedure(s): ELECTROPHYSIOLOGY STUDY SUPRAVENTRICULAR TACHYCARDIA ABLATION Anesthesia Evaluation No previous anesthesia. 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 Anesthesia Plan Anesthesia Plan: MAC Chart Reviewed documented in this encounter Plan of Treatment Upcoming Encounters Date Type Department Care Team (Late st Contact Info) Description 05/11/2024 10:30 AM EST Office Visit [facility] [address] [facility] [address] [place] [address] Yumiko Castaneda APRN [address] [place] [address] documented as of this encounter Procedures Procedure Name Priority Date/Time Associated Diagnosis Comments INTRAOP AIRWAY PLACEMENT Routine 09/30/2023 12:32 PM EDT documented in this encounter Results * INTRAOP AIRWAY PLACEMENT (09/30/2023 12:32 PM EDT) Narrative [facility] - 09/30/2023 12:32 PM EDT Matthew Agee CRNA ? 09/30/2023 12:32 PM Intraop Airway Placement: Date/Time: 09/30/2023 12:32 PM ??Airway type: ??Non-rebreather us Anthony Reece MD AR ANESTHESIA Edited Resu lt - Final [facility] [address] [place], [place] [phone] documented in this encounter Visit Diagnoses Not on filedocumented in this encounter Administered Medications Inactive Administered Medications - up to 1 most recent administrations Medication Order MAR Action Action Date Dose Rate Site fentaNYL (SUBLIMAZE) injection Intrathecal, PRN (Anesthesia), Starting on Lakesha 09/30/23 at 1226, Until Lakesha 09/30/23 at 1332, Anesthesia Intra-op Given 09/30/2023 12:26 PM EDT 100 mcg glycopyrrolate (ROBINUL) injection Intravenous, PRN (Anesthesia), Starting on Lakesha 09/30/23 at 1214, Until Lakesha 09/30/23 at 1332, Anesthesia Intra-op Given 09/30/2023 12:14 PM EDT 0.2 mg heparin (porcine) injection Intravenous, PRN (Anesthesia), Starting on Lakesha 09/30/23 at 1217, Until Lakesha 09/30/23 at 1332, Anesthesia Intra-op Given 09/30/2023 12:17 PM EDT 13,000 Units ketamine (KETALAR) 50 mg/5 mL (10 mg/mL) injection syringe Intravenous, PRN (Anesthesia), Starting on Lakesha 09/30/23 at 1208, Until Lakesha 09/30/23 at 1332, Anesthesia Intra-op Given 09/30/2023 12:08 PM EDT 50 mg lactated ringers infusion Intravenous, at 30 mL/hr, PREPROCEDURE CONTINUOUS, Starting on Wed09/29/23 at 0802, Until Lakesha 09/30/23 at 2001, Administer 1 hour prior to procedure in left arm with 20 gauge or larger IV catheter, Pre-op ([facility]), Dx: 1. SVT (supraventricular tachycardia) (HCC)Indications:SVT (supraventricular tachycardia) (HCC) IV Restarted 09/30/2023 11:45 AM EDT propofol (DIPRIVAN) infusion 10 mg/mL Intravenous, CONTINUOUS PRN, Starting on Lakesha 09/30/23 at 1153, Until Lakesha 09/30/23 at 1332, Anesthesia Intra-op Rate/Dose Change 09/30/2023 12:37 PM EDT 150 mcg/kg/min 76.5 mL/hr propofoL (DIPRIVAN) injection Intravenous, PRN (Anesthesia), Starting on Lakesha 09/30/23 at 1153, Until Lakesha 09/30/23 at 1332, Anesthesia Intra-op Given 09/30/2023 11:53 AM EDT 70 mg protamine injection Intravenous, PRN (Anesthesia), Starting on Lakesha 09/30/23 at 1312, Until Lakesha 09/30/23 at 1332, Anesthesia Intra-op Given 09/30/2023 1:12 PM EDT 50 mg documented in this encounter
--- OUTSIDE RECORDS SUMMARY | 2024-04-17 11:50 | XMS_ITS | Encounter Summary ---
Author Organization [place] [address] Care Team Providers Care Proof Carrier Name Role Phone Unavailable Primary Care Provider Unavailabl e Reason for Visit * Reason Onset Date Comments Other 10/01/2023 RTW note Encounter Details Date Type Department Care Team (Late st Contact Info) Description 10/01/2023 Telephone [facility] [address] [facility] [address] [place] [address] Marty Capps MD [address] [place], [place] [id number] Other (RTW note ) Social History Tobacco Use Types Packs/Day Years [...] encounter Miscellaneous Notes * Telephone Encounter - Allison Dowling RMA - 10/01/2023 1:17 PM EDT Letter typed and sent to my chart per patient request. * Telephone Encounter - Jenae Lindsay APRN - 10/01/2023 11:27 AM EDT It's usually 7-10 days off. * Telephone Encounter - Opal Griffin, Clerical Staff - 10/01/2023 11:06 AM EDT Patient had SVT ablation 09/30/23 TC. She is calling for a RTW note. She states that Dr Génesis copeher that her return to work date can be 10/11/23. Please call Rhonda @ [phone] Thank you documented in this encounter Plan of Treatment Upcoming Encounters Date Type Department Care Team (Late st Contact Info) Description 05/11/2024 10:30 AM EST Office Visit [facility] [address] [facility] [address] [place] [address] Yumiko Castaneda APRN [address] [place] [address] documented as of this encounter Visit Diagnoses Not on filedocumented in this encounter
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
--- OUTSIDE RECORDS SUMMARY | 2024-04-17 11:50 | XMS_ITS | Encounter Summary ---
Author Organization [place] [address] Care Team Providers Care Bolt Header Name Role Phone Unavailable Primary Care Provider Unavailabl e Reason for Visit * Reason Onset Date Comments Schedule Appointment 08/24/2023 Encounter Details Date Type Department Care Team (Late st Contact Info) Description 08/24/2023 Telephone [facility] [address] [facility] [address] [place] [address] Sunny Boyce MA Schedule Appointment Social History Tobacco Use Types Packs/Day Years Used Date Smoking Tobacco: Never Assessed Comments Unknown Sex and Gender Information Value Date Recorded Sex Assigned at Not on file Legal Sex Female 8:56 PM EDT Gender Identity Not on file Sexual Orientation Not on file documented as of this encounter Miscellaneous Notes * Telephone Encounter - Sunny Boyce MA - 08/24/2023 4:18 PM EDT New patient ref to Dr. Capps. Dr. Capps aware of this patient Reached out to Rhonda Braxton to schedule a new patient appointment. LMOM requesting a call back, would like to offer 09/01/23 (triple book). documented in this encounter Plan of Treatment Upcoming Encounters Date Type Department Care Team (Late st Contact Info) Description 05/11/2024 10:30 AM EST Office Visit [facility] [address] [facility] [address] [place] [address] Yumiko Castaneda APRN [address] [place] [address] documented as of this encounter Visit Diagnoses Not on filedocumented in this encounter
--- OUTSIDE RECORDS SUMMARY | 2024-04-17 11:50 | XMS_ITS | Encounter Summary ---
Author Organization [place] [address] Care Team Providers Care Forensic Investigator Name Role Phone Unavailable Primary Care Provider Unavailabl e Reason for Visit * Reason Comments Follow-up s/p SVT ablation 09/29 TCmeds per pt report Encounter Details Date Type Department Care Team (Late st Contact Info) Description 11/11/2023 11:00 AM EDT Office Visit [facility] [address] [facility] [place] [address] Yumiko Castaneda, TRACER BULLET CHARGING MACHINE OPERATOR [address] [place], [place] [id number] SVT (supraventricular tachycardia) (HCC) (Primary Dx); S/P ablation operation for arrhythmia; Tobacco use Social History Tobacco Use Types Packs/Day Years [...] Pulse 73 11/11/2023 11:01 AM EDT Temperature - - Respiratory Rate - - Oxygen Saturation 96% 11/11/2023 11:01 AM EDT Inhaled Oxygen Concentration - - Weight 86.6 kg (191 lb) 11/11/2023 11:01 AM EDT Height - - Body Mass Index 30.83 09/30/2023 10:13 AM EDT documented in this encounter Patient Instructions * Attachments The following attachments cannot be sent through Care Everywhere. * Quitting smoking (Tanzanian) * Supraventricular tachycardia (SVT) (Tanzanian) documented in this encounter Progress Notes * Yumiko Castaneda APRN - 11/11/2023 11:00 AM EDT Cardiac Electrophysiology Progress Note Patient ID: Rhonda Braxton is a 48 y.o. female. Chief Complaint Patient presents with Follow-up s/p SVT ablation 09/30/23 TC meds per pt report Patient is a 48-year-old female who presents today for a follow-up s/p SVT ablation 09/30/2023 (ORT). - A little pinch left anterior comes and goes quickly, random - feels like going to start, but does not - no dizziness, presyncope, syncope - no orthopnea or PND. occasional edema because she works on her feet all day - no shortness of breath with activity. Overall feels well. Follow-up Chronicity: s/p SVT ablation 09/30/23 TC. Associated symptoms include chest pain (tiny pinch left anterior, occasionally, random). Pertinent negatives include no arthralgias, coughing, diaphoresis, fatigue, headaches, myalgias, rash, urinary symptoms, vertigo or weakness. Their chronic cardiac conditions are: Problem List Cardiology Problems SVT (supraventricular tachycardia) ([facility]) S/P ablation operation for arrhythmia Atrial fibrillation with RVR ([facility]) Family history of atherosclerosis Hypotension Near syncope Non-ST elevation NE (NSTEMI) ([facility]) Nonsustained ventricular tachycardia ([facility]) Palpitations Right axis deviation Social History Tobacco Use Smoking Status Some Days Current packs/day: 0.50 Average packs/day: 0.5 packs/day for 32.4 years (16.2 ttl pk-yrs) Types: Cigarettes Start date: 05/31/1991 Smokeless Tobacco Never Current Outpatient Medications Medication Sig Dispense Refill adalimumab (HUMIRA) 40 mg/0.8 mL SubQ Pen Injector Kit Subcutaneous (Inject under the skin) 40 mg every 14 days. aspirin 81 mg Oral Tablet, Chewable Take 81 mg by mouth daily. atorvastatin (LIPITOR) 10 mg Oral Tablet Take 10 mg by mouth daily. fluticasone propion-salmeteroL (ADVAIR DISKUS) 100-50 mcg/dose Inhl Disk with Device Inhale 2 Puffsinto the lungs 2 times daily. varenicline tartrate (CHANTIX ORAL) Take by mouth 2 times daily. No current facility-administered medications for this visit. Patients past medical, family and social histories were reviewed and updated. There were no changesexcept as noted Review of Systems Constitutional: Negative for diaphoresis, fatigue, malaise/fatigue, weight gain and weight loss. HENT: Negative for nosebleeds. Cardiovascular: Positive for chest pain (tiny pinch left anterior, occasionally, random) and palpitations (feels like it wants to start, but does not). Negative for leg swelling and syncope. Respiratory: Negative for cough and shortness of breath. Skin: Negative for flushing and rash. Musculoskeletal: Negative for arthralgias, falls and myalgias. Gastrointestinal: Negative for heartburn and melena. Neurological: Negative for dizziness, headaches, vertigo and weakness. Psychiatric/Behavioral: Negative for depression. The patient does not have insomnia. Allergic/Immunologic: Negative for hives and persistent infections. Objective: No data found. Body mass index is 30.83 kg/m??. General: No apparent distress. Alert and oriented. [...] Functional Class No Value exists for the HAND BANDER: [facility]#2007 - L VASc LV Dysfunction [...] (i.e. female sex) Female = 1 1 [id number] Score 1 Assessment and Plan: SVT, ORT S/P Radiofrequency ablation of supraventricular tachycardia 09/30/23 Maintaining NSR 2. Smoking a. Doing well with Chantix. b. Encouraged efforts. Patient will follow-up in 6 mos or sooner if any changes. If doing well in 6 mos will go PRN. Yumiko Castaneda APRN documented in this encounter Miscellaneous Notes * Patient Instructions - Deborah Contreras MA - 11/11/2023 11:00 AM EDT You may be contacted by mail or e-mail to participate in a patient satisfaction survey regarding your office visit today. We value your opinion and depend on your feedback to make improvements and provide you with the best possible experience while receiving high quality medical treatment. Your time in completing this survey is greatly appreciated. Please contact your primary care physician . documented in this encounter Plan of Treatment Upcoming Encounters Date Type Department Care Team (Late st Contact Info) Description 05/11/2024 10:30 AM EST Office Visit [facility] [address] [facility] [address] [place] [address] Yumiko Castaneda APRN [address] [place] [address] documented as of this encounter Procedures Procedure Name Priority Date/Time Associated Diagnosis Comments POCT EKG Routine 11/11/2023 11:05 AM EDT SVT (supraventricular tachycardia) (HCC) documented in this encounter Results * POCT EKG (11/11/2023 11:05 AM EDT) 11/11/2023 11:0 5 AM EDT Impressions [facility] - 11/11/2023 11:05 AM EDT NSR 69, QT/Qtc 388/403 us Yumiko Castaneda APRN POINT OF CARE CARDIOLOGY Ana Maria franklin Result [facility] OFFICE documented in this encounter Visit Diagnoses Diagnosis SVT (supraventricular tachycardia) (HCC)- Primary Other specified cardiac dysrhythmias S/P ablation operation for arrhythmia Other postprocedural status Tobacco use Tobacco use disorder documented in this encounter Historical Medications * This list may reflect changes made after this encounter. aspirin 81 mg Oral Tablet, ChewableIndication s:SVT (supraventricular tachycardia) (HCC) Take 81 mg by mouth daily. added in this encounter
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
[2024-04-17 11:54] LABS: MANUAL DIFFERENTIAL MANUAL DIFFERENTIAL (MANUAL DIFF)
--- NOTE | 2024-04-17 12:09 | XR_ITS ---
FINAL REPORT CLINICAL HISTORY: pain, no injury FINDINGS: LEFT FOOT Three views of the left foot demonstrate no acute fracture or dislocation. The visualized joint spaces are normally aligned. The soft tissues are unremarkable. IMPRESSION: No acute bony abnormality. Reviewed, Interpreted and Dictated by Dragan Guaman MD Transcribed by Scarlett Lynn Authenticated and [facility]
[2024-04-17 12:20] LABS: Basophils # 0.1 K/mm3 (0-0.2); Basophils % 0.9 % (0.1-2.0); Eosinophils # 0.3 K/mm3 (0.0-0.4); Eosinophils % 4.1 % (0.1-12.0); Hematocrit 43.2 % (37.0-47.0); Hemoglobin 14.8 g/dL (12.2-16.2); Lymphocytes # 2.2 K/mm3 (0.7-4.5); Lymphocytes % 36.9 % (10-50); Mean Corpuscular HGB Conc 34.2 g/dL (31.8-35.4); Mean Corpuscular Hemoglobin 31.1 pg (27.0-31.2); Mean Corpuscular Volume 90.9 fl (81-99); Monocytes # 0.4 K/mm3 (0.1-1.0); Monocytes % 7.1 % (1.7-9.3); Neutrophils # 3.1 K/mm3 (1.8-7.8); Neutrophils % 51.1 % (37.0-80.0); Platelet Count 217 K/mm3 (142-424); Red Blood Count 4.76 M/mm3 (4.20-5.40); Red Cell Distribution Width 12.5 % (11.5-17.5)
[2024-04-17 12:39] LABS: Albumin Level 4.4 g/dl (3.5-5.0); Chloride 106 mmol/L (98-107); Eosinophils % 1 % (0-3); Lymphocytes % 37 % (10-50); Monocytes % 6 % (2-9); Neutrophils % 56 % (42-76); Platelet Estimate Normal; Potassium 4.1 mmoL/L (3.5-5.1); RBC Morphology Normal; Sodium 138 mmol/L (136-145); Total Cells Counted 100
[2024-04-17 12:42] LABS: Alanine Aminotransferase 26 U/L (12-78); Albumin/Globulin Ratio 1.6 (1.1-1.8); Alkaline Phosphatase 84 U/L (38-126); Anion Gap 14.1 mEq/L (5-15); Aspartate Amino Transferase 28 U/L (14-36); Bilirubin,Total 0.7 mg/dl (0.2-1.3); Blood Urea Nitrogen 14 mg/dl (7-17); Carbon Dioxide 22 mmol/L (22.0-30.0); Estimated Glomerular Filt Rate 107 ml/min (>60); GFR (African American) 129 ML/MIN (>60); Globulin 2.7 g/dL (1.3-3.2); Total Protein,Serum 7.1 g/dl (6.3-8.2)
[2024-04-17 12:42] LABS: Chol/HDL Ratio 1.9 (1-3.5); Cholesterol 189 mg/dl (140-200); HDL Cholesterol 102 mg/dl (40-60); Triglycerides 55 mg/dl (30-150); VLDL Cholesterol 11 mg/dL (0-40)
[2024-04-17 12:43] LABS: Calcium 9.4 mg/dl (8.4-10.2); Glucose 104 mg/dl (74-100)
[2024-04-17 12:48] LABS: C-Reactive Protein 2.9 mg/L (0-4)
[2024-04-17 12:53] LABS: Direct LDL Cholesterol 72.04 mg/dL (100-129)
[2024-04-17 13:03] LABS: Erythrocyte Sedimentation Rate 4 mm/hr (0-20)
[2024-04-18 08:21] LABS: HBsAg Screen Negative (Negative); HCV Ab Non Reactive (Non Reactive); Hep A Ab, IGM Negative (Negative); Hep B Core Ab, IgM Negative (Negative)
== END 2024-04-17 23:59 | disposition home or self-care (01) ==
LOC: LAB 11:47
PROVIDERS: Nurse Practitioner Family; PCP Family Medicine; Visit Provider Family Medicine
DX: M05.79 Rheumatoid arthritis with rheumatoid factor of multiple sites without organ or systems involvement (principal); H20.9 Unspecified iridocyclitis; D84.821 Immunodeficiency due to drugs; Z79.899 Other long term (current) drug therapy; E78.2 Mixed hyperlipidemia; M79.672 Pain in left foot
CPT/HCPCS: 36415; 73630; 80053; 80061; 80074; 85007; 85014; 85018; 85048; 85049; 85651; 86140

== ENCOUNTER 2024-05-29 09:49 | Outpatient (CLI) | payer BC, SELFPAY ==
--- NOTE | 2024-05-29 09:54 | XR_ITS ---
FINAL REPORT CLINICAL HISTORY: Foot Pain FINDINGS: LEFT FOOT Three views of the left foot demonstrate no acute fracture or dislocation. The visualized joint spaces are normally aligned. The soft tissues are unremarkable. IMPRESSION: No acute bony abnormality. Reviewed, Interpreted and Dictated by aNtalia Joyner MD Transcribed by Scarlett Lynn Authenticated and . [facility]
--- NOTE | 2024-05-29 09:54 | XR_ITS ---
FINAL REPORT CLINICAL HISTORY: Foot Pain FINDINGS: RIGHT FOOT 3 views of the right foot were obtained. There is no acute fracture or dislocation. There is mild degenerative disease at the first MTP joint. Visualized joint spaces are normally aligned. Soft tissues are unremarkable. IMPRESSION: No acute bony abnormality. Reviewed, Interpreted and Dictated by Natalia Joyner MD Transcribed by Scarlett Lynn Authenticated and [facility]
== END 2024-05-29 23:59 | disposition home or self-care (01) ==
PROVIDERS: PCP Psychiatry & Neurology Sleep Medicine; Visit Provider Podiatrist
DX: M79.671 Pain in right foot (principal); M79.672 Pain in left foot
CPT/HCPCS: 73630

== ENCOUNTER 2025-02-26 09:55 | Outpatient (CLI) | payer BC, SELFPAY ==
--- OUTSIDE RECORDS SUMMARY | 2024-08-31 06:15 | XMS_ITS ---
Author Organization [facility] Address [address] [facility] [address] [place] [id number] Care Team Providers Care Metallurgical Tester Name Role Phone Suzette Epps Primary Care Provider [phone] Kerri Esquivel Unavailable [phone] Allergies No Known Allergies REASON FOR VISIT 4 month F/U Social History Tobacco Use: Social History Observation Description Date Details (start date - stop date) Current Smoker 02/10/1995 - NA CURRENT TOBACCO USE: Question Answer Notes Are you a: current smoker When did you start smoking? 02/10/1995 How often do you smoke cigarettes? every day How soon after you wake up d o you smoke your first cigarette? after 60 min How many cigarettes a day do you smoke? 6-10 Are you interested in quitting? Ready to quit Quit November 29 2023 Encounters Encounter Location Date Provider Diagnosis [facility] [address] [facility] [address] [place] [id number] 08/31/2024 Kerri Esquivel Plan Of Treatment No Information Progress Notes * DIOMEDES SAHAQUYNHADOB:1975 (49 yo F)Acc No.[id number]:08/31/2024 Progress Notes Patient: JUAN CARLOS VIERA Provider: SOWMYA Brooks :1975 A ge:48 Y S ex:Female Date:08/31/2024 Address:[address], [id number] Pcp:Suzette Epps Subjective: * Chief Complaints: * 1 . 4 month F/U. * HPI: H PI: 48 year old female presents with c/o Patient is here today for?Pt is here today for a 4 month f/u. * ROS: D ERMATOLOGY: no R chiki. n o H greta. G ASTROENTEROLOGY: no N ausea. n o V omiting. n o D iarrhea.? U ROLOGY: no D ifficulty urinating. n o B lood in urine. * Medical History: M igraines, Anxiety, Rheumatoid Arthritis, Fibrocystic Breast Disease, Hyperlipidemia, Tobacco Abuse, Moderna Covid Vaccine x1. * Surgical History: R T Under Arm Gland Removal- Dr. Ly 1984, Tissue Removal, Spider Bite- [facility] 01/25/2019. * Family History: F ather: , diagnosed with Heart Disease. M other: , diagnosed with Cancer.?Paternal Grand Father: , family history unknown . P aternal Grand Mother: . M aternal Grand Father: , diagnosed with Cancer. M aternal Grand Mother: , family history unknown . 2 brother(s) , 2 sister(s) - healthy. . Mother-Lung Cancer, that metasized to brain, breast, and adrenal gland\nMaternal Grandmother- Stomach Cancer, Uterine Cancer\nPaternal Grand Father- Black Lung\nSister-Tachycardia\nSister-Cervical Cancer. * Social History: C URRENT TOBACCO USE: No A re you a: c urrent smoker, W hen did you start smoking??02/10/1995, H ow often do you smoke cigarettes? e very day, H ow soon after you wake up do you smoke your first cigarette? a fter 60 min, H ow many cigarettes a day do you smoke? 6 -10, A re you interested in quitting? R callie to quit Quit November 29 2023. C affeine: yes, frequency: 2 cup coffee in the morning, occasional tea. * Allergies: N .K.D.A. Objective: * Vitals: Assessment: Plan: * Treatment: * Images: Billing Information: * Visit Code: * Procedure Codes: * Electronic signature of SOWMYA Braswell on 02/26/2025 at 09:58 AM EDT Sign off status: Pending * Provider: SOWMYA Brooks Date: 0 08/31/2024 Generated for Joana mata/Suki/Alejandraitting on: 0 02/26/2025 09:58 AM EDT History and Physical Notes * HPI (History of Present Illness) Category Sub-Category Detail Notes Category Not es HPI Patient is here today for Pt is here toda y for a 4 month f/u
--- OUTSIDE RECORDS SUMMARY | 2024-09-15 09:30 | XMS_ITS ---
[facility] [address] [facility] [address] [place] [id number] Care Team Providers Care Hand Etcher Name Role Phone Suzette Epps Primary Care Provider [phone] Kerri Esquivel Unavailable [phone] Allergies No Known Allergies Results Component Value Reference Range Notes Influenza Screen (in house) Reviewed date:09/15/2024 04:13:21 PM Interpretation:pos fluB Performing Lab: Notes/Report: pos fluB results pos fluB Covid test (in house) Reviewed date:09/15/2024 04:13:13 PM Interpretation:neg Performing Lab: Notes/Report: neg Result: neg REASON FOR VISIT Possible Flu Medications Medication SIG (Take, Route, Frequency, Duration) Notes Start Date End Date Status Promethazine-DM 6.25-15 MG/5ML 5 ml as needed Orally every 6 hrs, prn 09/15/2024 Active Meloxicam 15 MG Take 1 tablet by yahaira th once daily; Duration: 30 Active Chantix 1 MG as directed Orally t wice a day Active Humira 20 MG/0.2ML as directed subcutan eously every other week Active Temazepam 15 MG 1 cap(s) orally once a day prn (at bedtime) 01/07/2022 Active Atorvastatin Calcium 10 MG Take 1 tablet by mouth once daily; Duration: 90 days Active Fluticasone Propionate 50 MCG/ACT USE DIRECTED IN EACH NOSTRIL ONCE DAILY; Duration: 30 Active Social History Tobacco Use: Social History Observation [...] Ready to quit Quit November 29 2023 Vital Signs Weight 184.4 lbs 09/15/2024 Blood pressure systolic 130 mm Hg 09/16/19 25 Blood pressure diastolic 76 mm Hg 025 Heart Rate 81 /min 09/15/2024 Height 65.5 in 09/15/2024 BMI 30.22 kg/m2 09/15/2024 Encounters Encounter Location Date Provider Diagnosis [facility] [address] [facility] [address] [place] [id number] 09/15/2024 Kerri Esquivel Influenza B J10. 1 Assessments Encounter Date Diagnosis (ICD Code) Assessment Notes Treatment Notes Treatment Clinical Notes Section Notes 09/15/2024 Influenza B (ICD-10 - J10.1) Rest, fluids, tylenol or motrin for fevers. Home until fever free for 24-48 hours without the use of medication. Plan Of Treatment Medication Medication Name Sig Start Date Stop Date Notes Promethazine-DM 6.25-15 MG/5ML 5 ml as n eeded Orally every 6 hrs, prn 09/15/2024 Treatment Notes Assessment Notes Influenza B Rest, fluids, tyleno l or motrin for fevers. Home until fever free for 24-48 hours without the use of medication. Next Appt Details Follow Up: prn, Reason: Progress Notes * LATRELL SAHAB:1975 (49 yo F)Acc No.[id number]:09/15/2024 Progress Notes Patient: JUAN CARLOS VIERA Provider: SOWMYA Brooks :1975 A ge:48 Y S ex:Female Date:09/15/2024 Address:[address], [id number] Pcp:Suzette Epps Subjective: * Chief Complaints: * 1 . Possible Flu. * HPI: E NT/respiratory: 48 year old female presents with c/o sore throat. c/o nasal congestion P t sts her symptoms started around Wednesday. c/o Fever l ow grade (99-100) off and on . c/o chest congestion. c/o body aches. * ROS: D ERMATOLOGY: no R chiki. [...] Dr. Ly 1984, Tissue Removal, Spider Bite- [facility] 01/25/2019. * Family History: F ather: , [...] coffee in the morning, occasional tea. * Medications: T aking Chantix 1 MG Tablet as directed Orally twice a day , Taking Humira 20 MG/0.2ML Prefilled Syringe Kit as directed subcutaneously every other week , Taking Temazepam 15 MG Capsule 1 cap(s) orally once a day prn (at bedtime) , Taking Atorvastatin Calcium 10 MG Tablet Take 1 tablet by mouth once daily , Taking Fluticasone Propionate 50 MCG/ACT Suspension USE DIRECTED IN EACH NOSTRIL ONCE DAILY , Taking Meloxicam 15 MG Tablet Take 1 tablet by mouth once daily , Medication List reviewed and reconciled with the patient * Allergies: N .K.D.A. Objective: * Vitals: W t: 184.4, Temp: 98.0, BP: 130/76, HR: 81, O2 Sat: 96% on RA, Nurse: chica, Ht: 65.5, BMI:30.22. * Examination: E NT/Respiratory: General Appearance: N AD. E ars: a uditory canals normal bilaterally, TM's WNL. N ose : turbinates red, congested. S inuses : non tender bilaterally. O ral cavity : erythema without exudate on pharynx. N shai : supple, bilateral tender lymphadenopathy. H eart : R RR, normal S1 S2, no murmurs. L ungs: c lear to auscultation bilaterally. Assessment: * Assessment: 1. I geetha B - J10.1 (Primary) Plan: * Treatment: Value Reference Range r esults pos fluB * Baltazarroel Beth 09/15/2024 01:3 2:08 PM > Provider reviewed results while patient in office.Kerri Esquivel 09/15/2024 4:13:17 PM > ?LAB: Covid test (in house) (Collection Date & Time - 09/15/2024)?neg* Value Reference Range R esult: neg * Beth Day 09/15/2024 01:3 2:31 PM > Provider reviewed results while patient in office.Kerri Esquivel 09/15/2024 4:13:09 PM > Notes: Rest, fluids, tylenol or motrin for fevers. Home until fever free for 24- 48 hours without the use of medication.?? * Procedure Codes: 8 7804 Flu Test- Nasal Swab, Modifiers: QW , 09352 COVID TEST IN HOUSE, Modifiers: QW * Follow Up: p rn * Images: Billing Information: * Visit Code: 81819 Office Visit, Est Pt., Level 3. * Procedure Codes: 12032 Flu Test- Nasal Swab. Modifiers: QW 04239 COVID TEST IN HOUSE. Modifiers: QW * Electronic signature of SOWMYA Braswell on 02/26/2025 at 09:58 AM EDT Sign off status: Pending * Provider: SOWMYA Brooks Date: 0 09/15/2024 Generated for Printi ng/Faxing/eTransmitting on: 0 02/26/2025 09:58 AM EDT History and Physical Notes * HPI (History of Present Illness) Category Sub-Category Detail Notes Category Not es ENT/respiratory sore throat Fever low grade (99-100) o ff and on chest congestion nasal congestion Pt sts her symptoms started around Wednesday body aches Examination Category Sub-Category Detail Notes Category Not es ENT/Respiratory Oral cavity : erythema without exudate on pharynx Sinuses : non tender bilateral ly Ears: auditory canals norm al bilaterally, TM's WNL Neck : supple, bilateral te nder lymphadenopathy Heart : RRR, normal S1 S2, n o murmurs Lungs: clear to auscultatio n bilaterally General Appearance: NAD Nose : turbinates red, anahi ested
--- OUTSIDE RECORDS SUMMARY | 2025-01-11 05:00 | XMS_ITS ---
Author Organization [facility] Address [address] [facility] [address] [place] [id number] Care Team Providers Care Dormitory Maid Name Role Phone Suzette Epps Primary Care Provider [phone] Kerri Esquivel Unavailable [phone] Allergies No Known Allergies REASON FOR VISIT Eye Issues Medications Medication SIG (Take, Route, Frequency, Duration) Notes Start Date End Date Status Fluticasone Propionate 50 MCG/ACT USE DIRECTED IN EACH NOSTRIL ONCE DAILY; Duration: 30 Active Temazepam 15 MG 1 cap(s) orally once a day prn (at bedtime) 01/07/2022 Active Humira 20 MG/0.2ML as directed subcutan eously every other week Active Chantix 1 MG as directed Orally t wice a day Active Atorvastatin Calcium 10 MG Take 1 tablet by mouth once daily; Duration: 90 Active Erythromycin 5 MG/GM 1 application 1 delfino lication into the lower eyelid of affected eyeOphthalmic Four times a day; Duration: 7 days 01/11/2025 Active Social History Tobacco Use: Social History [...] Quit November 29 2023 Vital Signs Weight 172 lbs 01/11/2025 Blood pressure systolic 130 mm Hg 01/12/20 25 Blood pressure diastolic 70 mm Hg 025 Heart Rate 68 /min 01/11/2025 Height 65.5 in 01/11/2025 BMI 28.18 kg/m2 01/11/2025 Encounters Encounter Location Date Provider Diagnosis [facility] [address] [place] [id number] 01/11/2025 Kerri Esquivel Acute blepharitis H01.009 Assessments Encounter Date Diagnosis (ICD Code) Assessment Notes Treatment Notes Treatment Clinical Notes Section Notes 01/11/2025 Acute blepharitis (ICD-10 - H01.009) Plan Of Treatment Medication Medication Name Sig Start Date Stop Date Notes Erythromycin 5 MG/GM 1 application 1 delfino lication into the lower eyelid of affected eyeOphthalmic Four times a day; Duration: 7 days 01/11/2025 Next Appt Details Follow Up: prn, Reason: Progress Notes * DIOMEDES SAHAQUYNHADOB:1975 (49 yo F)Acc No.[id number]:01/11/2025 Progress Notes Patient: JUAN CARLOS VIERA Provider: SOWMYA Brooks :1975 A ge:49 Y S ex:Female Date:01/11/2025 Address:[address], [place], [id number] Pcp:Suzette Epps Subjective: * Chief Complaints: * 1 . Eye Issues. * HPI: O pthalmology: 49 year old female presents with c/o redness P t here for left eye redness and swelling. Pt states this started yesterday. Pt states it does not itch and is not painful. * ROS: D ERMATOLOGY: no R chiki. [...] T Under Arm Gland Removal- Dr. Ly 1985, Tissue Removal, Spider Bite- [facility] 01/25/2019. * Family History: F ather: , [...] a day prn (at bedtime) , Taking Fluticasone Propionate 50 MCG/ACT Suspension USE DIRECTED IN EACH NOSTRIL ONCE DAILY , Taking Atorvastatin Calcium 10 MG Tablet Take 1 tablet by mouth once daily , Discontinued Meloxicam 15 MG Tablet Take 1 tablet by mouth once daily , Discontinued Promethazine-DM 6.25-15 MG/5ML Syrup 5 ml as needed Orally every 6 hrs, prn , Medication List reviewed and reconciled with the patient * Allergies: N .K.D.A. Objective: * Vitals: W t: 172, Temp: 98.0, BP: 130/70, HR: 68, Nurse: pe, Ht: 65.5, BMI:28.18. * Examination: G eneral Examination: General Appearance: N AD. H EENT: l eft upper lid with edema, erythema, and mildly tender, left conjunctivae normal. H eart: R SR. L ungs:?clear to auscultation. Assessment: * Assessment: 1. A cute blepharitis - H01.009 (Primary) S pecify :left eye Plan: * Treatment: * Procedure Codes: 3 075F SYST BP GE 130 - 139MM HG, 3078F DIAST BP < 80 MM HG * Follow Up: p rn * Images: Billing Information: * Visit Code: 89654 Office Visit, Est Pt., Level 3. * Procedure Codes: 3075F SYST BP GE 130 - 139MM HG. 3078F DIAST BP < 80 MM HG. * Electronic signature of SOWMYA Braswell on 02/26/2025 at 09:57 AM EDT Sign off status: Pending * Provider: SOWMYA Brooks Date: 0 01/11/2025 Generated for Ginoi ng/Fakathyg/eTransmitting on: 0 02/26/2025 09:57 AM EDT History and Physical Notes * HPI (History of Present Illness) Category Sub-Category Detail Notes Category Not es Opthalmology redness Pt here for left eye redness and swelling. Pt states this started yesterday. Pt states it does not itch and is not painful Examination Category Sub-Category Detail Notes Category Not es General Examination HEENT: left upper l id with edema, erythema, and mildly tender, left conjunctivae normal Heart: RSR Lungs: clear to auscultatio n General Appearance: NAD
--- OUTSIDE RECORDS SUMMARY | 2025-01-12 05:45 | XMS_ITS ---
Author [facility] Address [address] [facility] [address] [place] [id number] Care Team Providers Care Blood Donor Recruiter Name Role Phone Suzette Epps Primary Care Provider Nain Garcia Unavailable [phone] Allergies No Known Allergies REASON FOR VISIT irritation of eye progressively getting worse after ointment Medications Medication SIG (Take, Route, Frequency, Duration) Notes Start Date End Date Status dexAMETHasone 2 MG 1 tablet Orally twic e a day; Duration: 5 days 01/12/2025 Active Atorvastatin Calcium 10 MG Take 1 tablet by mouth once daily; Duration: 90 Active Erythromycin 5 MG/GM 1 application 1 application into the lower eyelid of affected eyeOphthalmic Four times a day 01/11/2025 Active Temazepam 15 MG 1 cap(s) orally once a day prn (at bedtime) 01/07/2022 Active Fluticasone Propionate 50 MCG/ACT USE DIRECTED IN EACH NOSTRIL ONCE DAILY; Duration: 30 Active Chantix 1 MG as directed Orally t wice a day Active Humira 20 MG/0.2ML as directed subcutan eously every other week Active Social History Tobacco Use: Social History [...] 29 2023 Vital Signs Weight 172 lbs 01/12/2025 Blood pressure systolic 130 mm Hg 01/13/20 25 Blood pressure diastolic 72 mm Hg 025 Heart Rate 94 /min 01/12/2025 Height 65.5 in 01/12/2025 BMI 28.18 kg/m2 01/12/2025 Encounters Encounter Location Date Provider Diagnosis [facility] [address] [place] [id number] 01/12/2025 Nain Garcia Hordeolum of left up per eyelid, unspecified hordeolum type H00.014 Assessments Encounter Date Diagnosis (ICD Code) Assessment Notes Treatment Notes Treatment Clinical Notes Section Notes 01/12/2025 Hordeolum of left upper eyelid, unspecified hordeolum type (ICD-10 - H00.014) Plan Of Treatment Medication Medication Name Sig Start Date Stop Date Notes dexAMETHasone 2 MG 1 tablet Orally twic e a day; Duration: 5 days 01/12/2025 Erythromycin 5 MG/GM 1 application 1 delfino lication into the lower eyelid of affected eyeOphthalmic Four times a day 01/11/2025 Next Appt Details Follow Up: via phone to repo rt progress, Reason: Progress Notes * HE SAHAPAWANB:1975 (49 yo F)Acc No.[id number]:01/12/2025 Progress Notes Patient: JUAN CARLOS VIERA Provider: Anabella Garcia M.D. :1975 A ge:49 Y S ex:Female Date:01/12/2025 Address:[facility] [address], [place], [id number] Pcp:Suzette Epps Subjective: * Chief Complaints: * 1 . Irritation of eye progressively getting worse after ointment. * HPI: O pthalmology: 49 year old female presents with c/o redness P t complains of worsening redness and irritation in lt eye. Pt was seen 01/11 and rx'd Erythromycin ointment and states she feels like this made her eye worse. Pt's states swelling has worsened . * ROS: D ERMATOLOGY: no R chiki. n o H greta. G ASTROENTEROLOGY: no N ausea. n o V omiting. U ROLOGY: no D ifficulty urinating. n o B lood in urine. * Medical History: M igraines, Anxiety, Rheumatoid Arthritis, Fibrocystic Breast Disease, Hyperlipidemia, Tobacco Abuse, Moderna Covid Vaccine x1. * Surgical History: R T Under Arm Gland Removal- Dr. Ly 1984, Tissue Removal, Spider Bite- [facility] 01/25/2019. * Hospitalization/Major Diagno stic Procedure: D enies Past Hospitalization. * Family History: F ather: , diagnosed [...] tablet by mouth once daily , Taking Erythromycin 5 MG/GM Ointment 1 application 1 application into the lower eyelid of affected eyeOphthalmic Four times a day , Medication List reviewed and reconciled with the patient * Allergies: N .K.D.A. Objective: * Vitals: W t: 172, Temp: 97.8, BP: 130/72, HR: 94, Nurse: leonidas, Ht: 65.5, BMI:28.18. * Examination: G eneral Examination: General Appearance: N AD. H EENT: P ERRLA, Sclera and conjunctiva clear, medial left upper eye lid with some edema and dull skin erythema, tiny punctum present at he lid edge. Assessment: * Assessment: 1. H ordeolum of left upper eyelid, unspecified hordeolum type - H00.014 (Primary) ? Plan: * Treatment: * Follow Up: v ia phone to report progress * Images: Billing Information: * Visit Code: 91048 Office Visit, Est Pt., Level 3. * Procedure Codes: * Electronic signature of Candy Garcia MD on 02/26/2025 at 09:58 AM EDT Sign off status: Pending * Provider: Anabella Garcia M.D. Date: 0 01/12/2025 Generated for oJana mata/Suki/eTransmitting on: 0 02/26/2025 09:58 AM EDT History and Physical Notes * HPI (History of Present Illness) Category Sub-Category Detail Notes Category Not es Opthalmology redness Pt complains of worsening redness and irritation in lt eye. Pt was seen 01/11 and rx'd Erythromycin ointment and states she feels like this made her eye worse. Pt's states swelling has worsened Examination Category Sub-Category Detail Notes Category Not es General Examination HEENT: PERRLA, Scle ra and conjunctiva clear, medial left upper eye lid with some edema and dull skin erythema, tiny punctum present at he lid edge General Appearance: NAD
--- OUTSIDE RECORDS SUMMARY | 2025-01-22 07:52 | XMS_ITS ---
Author Organization [facility] Address [address] [facility] [address] [place] [id number] Care Team Providers Care Assembler Type Bar And Segment Name Role Phone Suzette Epps Primary Care Provider REASON FOR VISIT due david, col Encounters Encounter Location Date Provider Diagnosis [facility] [address] [facility] [address] [place] [id number] 01/22/2025 Suzette Epps Breast cancer screening Z12.31 Assessments Encounter Date Diagnosis (ICD Code) Assessment Notes Treatment Notes Treatment Clinical Notes Section Notes 01/22/2025 Breast cancer screening (ICD-10 - Z12.31) Plan Of Treatment Pending Test Test Name Order Date Mammogram 01/22/2025 Progress Notes * HE SAHAPAWANB:1975 (49 yo F)Acc No.[id number]:01/22/2025 Patient: JUAN CARLOS VIERA :1975 A ge:49 Y S ex:Female Address:[address], [address] Subjective: * Chief Complaints: * D ue david, col * Medical History: * Surgical History: * Hospitalization/Major Diagno stic Procedure: * Medications: Objective: * Vitals: * Physical Examination: Assessment: * Assessment: 1. B reast cancer screening - Z12.31 (Primary) Plan: * Treatment: * Procedure Codes: * true * Date: Generated for Printi ng/Faxing/eTransmitting on: 0 02/26/2025 09:58 AM EDT
--- OUTSIDE RECORDS SUMMARY | 2025-02-26 09:58 | XMS_ITS | Encounter Summary ---
[facility] Address [address] [place] [address] Care Team Providers Care Advertising Dispatch Clerks Supervisor Name Role Phone Hayden Epps MD Primary Care Provider + [phone] Reason for Visit * Reason Onset Date Comments Med Refill 01/02/2025 Encounter Details Date Type Department Care Team (Late st Contact Info) Description 01/02/2025 Refill [facility] RHEUMATOLOGY [address] [address] Sean Harris, [address] [phone] Social History Tobacco Use Types Packs/Day Years [...] encounter Miscellaneous Notes * Telephone Encounter - Quinn Cross RegSched Rep - 01/02/2025 3:18 PM EDT Images from the original note were not included. documented in this encounter Plan of Treatment Not on file documented as of this encounter Visit Diagnoses Not on filedocumented in this encounter Care Teams Advertising Dispatch Clerks Supervisor Relationship Specialty Start Date End Date Hayden Epps MD [address] [place] [address] PCP - General Neurology 09/04/24 documented as of this encounter
--- OUTSIDE RECORDS SUMMARY | 2025-02-26 09:58 | XMS_ITS | Encounter Summary ---
[facility] Address [address] [place] [address] Care Team Providers Care Yarn Comber Name Role Phone Hayden Epps MD Primary Care Provider + [phone] Encounter Details Date Type Department Care Team (Late st Contact Info) Description 01/04/2025 Telephone [facility] RHEUM[facility]OLOGY [address] [place] [place] [phone] Mirna Cole, PharmD [address] [place] [address] Social History Tobacco Use Types Packs/Day Years [...] encounter Miscellaneous Notes * Telephone Encounter - Mirna Cole PharmD - 01/04/2025 2:14 PM EDT Images from the original note were not included. Specialty Pharmacy Patient Management Program Per Protocol Prescription Order/Refill Patient currently fills medications at [facility] and is not enrolled in an Rheumatology Patient Management Program. Requested Prescriptions Signed Prescriptions Disp Refills Adalimumab-adbm 40 MG/0.4ML Auto-injector Kit 2 each 5 Sig: Inject 40 mg under the skin into the appropriate area as directed Every 14 (Fourteen) Days. Authorizing Provider: LA LANDA Ordering User: MIRNA COLE Prescription orders above were sent to the pharmacy per Collaborative Care Agreement Protocol. * Telephone Encounter - Mirna Cole PharmD - 01/04/2025 2:10 PM EDT Images from the original note were not included. * Telephone Encounter - Mirna Cole PharmD - 01/04/2025 2:10 PM EDT ----- Message from Mali Stoner sent at 01/04/2025 10:03 AM EDT ----- ADALIMUMAB documented in this encounter Plan of Treatment Not on file documented as of this encounter Visit Diagnoses Not on filedocumented in this encounter Care Teams Yarn Comber Relationship Specialty Start Date End Date Hayden Epps MD [address] [facility] [address] [place] [address] PCP - General Neurology 09/04/24 documented as of this encounter
--- OUTSIDE RECORDS SUMMARY | 2025-02-26 09:58 | XMS_ITS ---
Author Organization [facility] Address [address] [place] [address] Care Team Providers Care Aircraft Life Support Fitter Name Role Phone Hayden Epps MD Primary Care Provider Rheumatology - External Fill Status:Enrolled (Active) Start date:12/16/2023 Enrollment date:12/16/2023 Enrollment reason:Identified as being on target medication Current support & services provided:Benefits Investigation, External Pharmacy Dispensing Linked medications:Adalimumab (Discontinued) Linked problems:Rheumatoid arthritis (Active) Overview Arianna Case Team Name Relationship Phone Lisette Burgos Digital Pre Press Operator Personal Health Coach Sunny Tinsley Digital Pre Press Operator Personal Health Coach Sd Pitts PharmD Pharmacist Continued Care and Services Coordination
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
--- OUTSIDE RECORDS SUMMARY | 2025-02-26 09:59 | XMS_ITS | Encounter Summary ---
[facility] Organization [facility] Address [address] [place] [address] Care Team Providers Care Nurse Case Manager Name Role Phone Hayden Epps MD Primary Care Provider + [phone] Encounter Details Date Type Department Care Team (Late st Contact Info) Description 01/04/2025 Telephone [facility] RHEUMATOLOGY [address] [address] Mago Be, Counting Machine Operator Social History Tobacco Use Types Packs/Day Years [...] Encounter - Mirna Cole PharmD - 01/04/2025 11:18 AM EDT Does the patient need refills or a new Prior auth? * Telephone Encounter - Mago Be Counting Machine Operator - 01/04/2025 10:21 AM EDT ----- Message from Mali Stoner sent at 01/04/2025 10:03 AM EDT ----- ADALIMUMAB documented in this encounter Plan of Treatment Not on file documented as of this encounter Visit Diagnoses Not on filedocumented in this encounter Care Teams Nurse Case Manager Relationship Specialty Start Date End Date Hayden Epps MD [facility] [place] [address] PCP - General Neurology 09/04/24 documented as of this encounter
--- OUTSIDE RECORDS SUMMARY | 2025-02-26 09:59 | XMS_ITS | Patient Health Record ---
[facility] [address] [facility] [address] [place] [id number] Care Team Providers Care Yard Worker Name Role Phone Suzette Epps Primary Care Provider [phone] JoseNain Unavailable [phone] Kerri Esquivel Unavailable [phone] Allergies No Known Allergies Results Component Value Reference Range Notes Influenza Screen (in house) Reviewed date:09/15/2024 04:13:21 PM Interpretation:pos fluB Performing Lab: Notes/Report: pos fluB results pos fluB Covid test (in house) Reviewed date:09/15/2024 04:13:13 PM Interpretation:neg Performing Lab: Notes/Report: neg Result: neg P-Uric Acid Reviewed date:05/08/2024 10:01:01 AM Interpretation:Normal Performing Lab: Notes/Report: CLIA: [id number] Bebeto Munoz MD, Sample Selector [address] [place] [address] , [place] [address] Test performed by datapine, [facility] Uric Acid 4.6 2.4-7.0 mg/dL H-CBC Reviewed date:04/21/2024 02:36:20 PM Interpretation:Normal Performing Lab: Notes/Report: Normal WBC 6.0 RBC 4.76 HGB 14.8 HCT 43.2 MCV 90.9 MCH 31.1 MCHC 34.2 RDW 12.5 PLT 217 MPV 8.0 NE% 51.1 LY% 36.9 MO% 7.1 EO% 4.1 BA% 0.9 NE# 3.1 LY# 2.2 MO# 0.4 EO# 0.3 BA# 0.1 H-Lipid Panel Reviewed date:04/21/2024 02:37:01 PM Interpretation:dldl 72, hdl 102 Performing Lab: Notes/Report: Patient Fasting? Y TRIG 55 30-150 mg/dl CHOL 189 140-200 mg/dl DLDL 72.04 100-129 mg/dL VLDL 11 0-40 mg/dL HDL 102 40-60 mg/dl CHLHDL 1.9 1-3.5 H-CMP Reviewed date:04/21/2024 02:36:20 PM Interpretation:glu 104 Performing Lab: Notes/Report: glu 104 NA 138 K 4.1 CL 106 CO2 22 GAP 14.1 BUN 14 CREATT 0.60 GFRAA 129 EGFR 107 GLU 104 CA 9.4 BILIT 0.7 AST 28 ALT 26 TP 7.1 ALB 4.4 GLOB 2.7 AGRATIO 1.6 ALP 84 X ray : Foot, left Reviewed date:04/20/2024 12:45:40 PM Interpretation:Negative Performing Lab: Notes/Report: Negative Reason For Referral Reason foot pain Diagnosis 1 Left foot pain (M79. 672) Referral Organization [facility] Referring Provider First Name Suzette Blake Referring Provider Last Name [place] Referring Provider Speciality [facility] ctice Referred Provider Samantha Redman Referred Provider Specialty Podiatry General Notes Aurelia Acevedo 024 9:17:04 AM > faxed to [facility] Podiatry, Aurelia Acevedo 04/21/2024 9:26:21 AM > confirmed with Victoriano at [facility] Podiatry that referral has been received Referral Priority Routine Medications Medication SIG (Take, Route, Frequency, Duration) Notes Start Date End Date Status dexAMETHasone 2 MG 1 tablet Orally twic e a day; Duration: 5 days 01/12/2025 Active Atorvastatin Calcium 10 MG Take 1 tablet by mouth once daily; Duration: 90 Active Erythromycin 5 MG/GM 1 application 1 application into the lower eyelid of affected eyeOphthalmic Four times a day 01/11/2025 Active Chantix 1 MG as directed Orally t wice a day Active Humira 20 MG/0.2ML as directed subcutan eously every other week Active Temazepam 15 MG 1 cap(s) orally once a day prn (at bedtime) 01/07/2022 Active Fluticasone Propionate 50 MCG/ACT USE DIRECTED IN EACH NOSTRIL ONCE DAILY; Duration: 30 Active Immunizations Vaccine Route Administration Date Status Comme nts Tetanus Tdap-Adacel (over 7yrs) IM Intramuscular 05/30/2018 Administered COVID 19 Moderna Unknown 10/11/2020 Administered COVID 19 Moderna Unknown 11/08/2020 Administered Social History Tobacco Use: Social History Observation [...] Ready to quit Quit November 29 2023 Problems Problem Type SNOMED Code ICD Code Onset Dates Problem Status W/U Status Risk Notes Problem Anxiety (68656434) Anxiety (F41.9) Active confirmed Problem Acute non-ST segment elevation myocardial infarction (138176248) NSTEMI (non-ST elevated myocardial infarction) (I21.4) Active confirmed Problem Mixed anxiety and depressive disorder (344712207) Depression with anxiety (F41.8) Active confirmed Problem Plantar fascial fibromatosis (45302131) Plantar fasciitis, left (M72.2) Active confirmed Problem Mixed hyperlipidemia (154103203) Mixed hyperlipidemia (E78.2) Active confirmed Problem Insomnia disorder related to another mental disorder (05162537) Insomnia due to other mental disorder (F51.05) Active confirmed Problem Mental disorder (54657118) Mental disorder, not otherwise specified (F99) Active confirmed Problem Pulmonary nodule (620271268) Pulmonary nodule (R91.1) Active confirmed Problem Non-toxic single thyroid nodule (880602876) Right thyroid nodule (E04.1) Active confirmed Problem Chronic migraine (236825047) Chronic migraine (G43.709) Active confirmed Problem Acquired hypothyroidism (328869244) Acquired hypothyroidism (E03.9) Active confirmed Problem Paroxysmal tachycardia (55248202) Tachycardia, paroxysmal (I47.9) Active confirmed Problem Atrial fibrillation (02066492) Atrial fibrillation, unspecified type (I48.91) Active confirmed Problem Vaginal bleeding (239464957) Vaginal bleeding (N93.9) Active confirmed Problem Tobacco use (964936280) Tobacco use disorder (F17.200) Active confirmed Problem Thyromegaly (7258658) Thyromegaly (E01.0) Active confirmed Problem Skin sensation disturbance (63377980) Right hand paresthesia (R20.2) Active confirmed Problem Osteopenia (563369800) Osteopenia, unspecified location (M85.80) Active confirmed Problem Fibrocystic breast changes (90464400) Fibrocystic breast disease (FCBD), unspecified laterality (N60.19) Active confirmed Problem Allergic rhinitis (68464316) Allergic rhinitis, unspecified seasonality, unspecified trigger (J30.9) Active confirmed Problem Iridocyclitis (90016889) Iridocyclitis (H20.9) Active confirmed Problem Rheumatoid arthritis (72914255) Rheumatoid arthritis with positive rheumatoid factor, involving unspecified site (M05.9) Active confirmed Problem Long-term current use of anticoagulant (840107913) Anticoagulated (Z79.01) Active confirmed Vital Signs Heart Rate 94 /min 01/12/2025 Blood pressure diastolic 72 mm Hg 01/12/2025 Height 65.5 in 01/12/2025 Blood pressure systolic 130 mm Hg 01/12/2025 Weight 172 lbs 01/12/2025 BMI 28.18 kg/m2 01/12/2025 Encounters Encounter Location Date Provider Diagnosis [facility] [address] [facility] [address] [place], [place] [id number] 05/04/2024 Suzette Epps Plantar fasciitis, l eft M72.2 ; Rheumatoid arthritis with positive rheumatoid factor, involving unspecified site M05.9 and Mixed hyperlipidemia E78.2 [facility] [address] [facility] [address] [facility] [address] [place], [place] [id number] 09/15/2024 Kerri Esquivel Influenza B J10.1 [facility] [address] [place], [place] [id number] 01/11/2025 Kerri Esquivel Acute blepharitis H01.009 [facility] [address] [facility] [address] [facility] [address] [place], [place] [id number] 01/12/2025 [place] Horde[place] of left up per eyelid, unspecified hordeolum type H00.014 [facility] [address] [facility] [address] [facility] [address] [place], [place] [id number] 03/23/2024 Kerri Esquivel Plantar fasciitis, l eft M72.2 [facility] [address] [facility] [address] [facility] [address] [place], [place] [id number] 04/17/2024 Suzette Epps Left foot pain M79.6 72 [address] Mixed hyperlipidemia E78.2 [facility] [address] [facility] [address] [facility] [address] [place], [place] [id number] 04/21/[address] [facility] [address] [facility] [address] [place], [place] [id number] 01/22/2025 Suzette Epps Breast cancer screen ing Z12.31 Assessments Encounter Date Diagnosis (ICD Code) Assessment Notes Treatment Notes Treatment Clinical Notes Section Notes 03/23/2024 Plantar fasciitis, left (ICD-10 - M72.2) Gave handout for exercises to do at home, no going barefoot, can get good tennis shoes from [employer], Ice, Rest, Powerstep insoles 04/17/2024 Left foot pain (ICD-10 - M79.672) Night brace suggested 04/17/2024 Mixed hyperlipidemia (ICD-10 - E78.2) 05/04/2024 Plantar fasciitis, left (ICD-10 - M72.2) 05/04/2024 Rheumatoid arthritis with positive rheumatoid factor, involving unspecified site (ICD-10 - M05.9) 09/15/2024 Influenza B (ICD-10 - J10.1) Rest, fluids, tylenol or motrin for fevers. Home until fever free for 24-48 hours without the use of medication. 01/11/2025 Acute blepharitis (ICD-10 - H01.009) 01/12/2025 Hordeolum of left upper eyelid, unspecified hordeolum type (ICD-10 - H00.014) 01/22/2025 Breast cancer screening (ICD-10 - Z12.31) 05/04/2024 Mixed hyperlipidemia (ICD-10 - E78.2) Plan Of Treatment Pending Test Test Name Order Date Mammogram 01/22/2025 Insurance Providers Payer Name Payer Address Payer Phone Subscriber Number Group Number Insured Name Patient Relationship to Insured Coverage Start Date Coverage End Date TOÑO GUERRERO CROSSJEUSMIGUEL ANGEL ABRAM [address] [place] [address] [id number] JUAN CARLOS SAHA Self - patient is the insured Medical (General) History Medical History History ICD Code Migraines Anxiety Rheumatoid Arthritis Fibrocystic Breast Disease Hyperlipidemia Tobacco Abuse Moderna Covid Vaccine x1 Surgical History Surgery Date(Month/Year) RT Under Arm Gland Removal- Dr. Mendez rt 1984 Tissue Removal, Spider Bite- [facility] 019
--- OUTSIDE RECORDS SUMMARY | 2025-02-26 09:59 | XMS_ITS | Clinical Summary ---
[facility] Address [address] [place] [address] Care Team Providers Care Conference Concierge Name Role Phone Hayden Epps MD Primary Care Provider [phone] Allergies No known active allergies Medications atorvastatin [...] mouth Every Other Day As Needed. Active varenicline (CHANTIX) 1 MG tablet Take 1 tablet by mouth Every 12 (Twelve) Hours. 4 Active Adalimumab-adbm 40 MG/0.4ML Auto-injector Kit Inject 40 mg under the skin into the appropriate area as directed Every 14 (Fourteen) Days. 2 each 5 5 Active Active Problems Problem Noted Date Diagnosed Date Unspecified iridocyclitis 03/02/2024 Assessment & Plan (03/02/2024 3:15 PM EDT): * Medications/treatments/interventions tried include: Tylenol, Prednisolone eye drops, Cyclopentolate eye drops, Skelaxin, Medrol Dosepak, she has seen an continuing education instructor and an wallcovering texturer, she has done some physical therapy * [...] Skelaxin, Medrol Dosepak, she has seen an continuing education instructor and an wallcovering texturer, she has done some physical therapy, Humira [...] Encounters Date Type Department Care Team Description 01/04/2025 Telephone [facility] RHE[facility]OLOGY [address] [place] [phone] Mirna Cole, PharmD 01/04/2025 Telephone [facility] RHEUM[facility]OLOGY [address] [phone] Mago Be, Instrument And Controls Technician 01/02/2025 Refill [facility]HEUM[facility] [address] [phone] Sean Harris, from Last 3 Months Immunizations Immunization Administration Dates Next Due COVID-19 (UNSPECIFIED) 10/08/2020 [...] 76 03/06/2024 10:09 AM EDT Temperature 36.7 C (98 F) 03/06/2024 10:09 AM EDT Respiratory Rate - - Oxygen Saturation - - Inhaled Oxygen Concentration - - Weight 88.5 kg (195 lb) 03/06/2024 10:09 AM EDT Height 167.6 cm (5' 6 ) 03/06/2024 10:09 AM EDT Body Mass Index 31.47 03/06/2024 10:09 AM EDT Plan of Treatment Health Maintenance Due Date Last Done Comments Annual Gynecologic Pelvic and Breast Exam 1975 Pneumococcal Vaccine 0-49 (1 of 2 - PCV) 10/03/1994 PAP SMEAR 10/03/1996 MAMMOGRAM 2015 ANNUAL PHYSICAL 02/19/2020 HEPATITIS C SCREENING 02/19/2020 COLOGUARD 10/03/2020 COLON CANCER SCREENING 5 YEAR SIGMOIDOSCOPY 10/03/2020 COLONOSCOPY 10/03/2020 COLORECTAL CANCER SCREENING 10/03/2020 CT COLONOGRAPHY 10/03/2020 FECAL OCCULT BLOOD TEST 10/03/2020 FIT Testing (1 year) 10/03/2020 INFLUENZA VACCINE 12/29/2024 TDAP/TD VACCINES (2 - Td or Tdap) 05/30/2028 018 Insurance Member Subscriber Plan / Payer (Ef fective 2018-Present) Name:Rhonda Braxton Relation to Subscriber:Self Name:Rhonda Braxton Payer ID:[id number] (NAIC) Type:Not on file Address: [facility] [id number] [place] [id number] Care Teams Conference Concierge Relationship Specialty Start Date End Date Hayden Epps MD [address] [facility] [address] [place] [address] PCP - General Neurology 09/04/24
--- NOTE | 2025-02-26 10:00 | MM_ITS ---
PROCEDURE INFORMATION: Exam: MG Bilateral Screening 3D Mammography Exam date and time: 02/26/2025 10:19 AM Age: 49 years old Clinical indication: Screening examination TECHNIQUE: Imaging protocol: Bilateral Screening tomosynthesis and 2D mammography including computer-aided detection (CAD) when performed. COMPARISON: 1. MG MM DIG SCREENING MAMM BI W/CAD 01/06/2024 9:30 AM 2. MG MM DIG SCREENING MAMM BI W/CAD 03/03/2022 3:34 PM FINDINGS: MAMMOGRAPHY: Breast composition: The breasts are heterogeneously dense, which may obscure small masses. Mass: None. Architectural distortion: None. Calcifications: No suspicious calcifications. Asymmetric density: None. Skin thickening: None. Axillary adenopathy: None. IMPRESSION: No mammographic evidence of malignancy. Annual screening is recommended unless otherwise clinically indicated. ASSESSMENT: BI-RADS Category 1: Negative.
== END 2025-02-26 23:59 | disposition home or self-care (01) ==
LOC: RAD 09:56
PROVIDERS: PCP Family Medicine; Visit Provider Family Medicine
DX: Z12.31 Encounter for screening mammogram for malignant neoplasm of breast (principal); R92.333 Mammographic heterogeneous density, bilateral breasts
CPT/HCPCS: 77063; 77067